=== PATIENT | male | born 1940 | race Caucasian/White ===

== ENCOUNTER 2017-12-23 14:02 | Inpatient (IN) ==
[2017-12-23] MEDS ORDERED: *HR* FentaNYL (PF) 100 MCG/2 ML VIAL IVP ONE ×3 (14:36→16:28)
--- NOTE | 2017-12-23 14:42 | Emergency Department Note ---
Disposition Clinical Impression: Pulmonary embolism and infarction Chest pain Qualifiers: Chest pain type: unspecified Qualified Code(s): R07.9 - Chest pain, unspecified Disposition: Admitted As Inpatient Condition: Good Time of Disposition: 16:39 General Adult HPI - General Chief complaint: ED Shortness of Breath/Dyspnea Stated complaint: Right Shoulder Pain / SOB Time Seen by Provider: 12/23/17 14:20 Source: patient Limitations: no limitations Nursing Notes Reviewed: Yes Vital Signs Reviewed: Yes - History of Present Illness HPI Narrative: Patient is a 77-year-old male that presents to the emergency department with right-sided chest pain. States that this woke him up from sleep around 2:30 this morning. States that he felt like he could not breathe. States that he has never had anything like this before. Patient denies any history of blood clots. Patient states that it is right-sided chest pain with no associated shortness of breath but has had some nausea. Patient denies any radiation of his pain. Patient states that he was seen at an outside facility and they felt that he should possibly come here for additional workup. Pain Scale: 9 - Related Data Home Medications Medication Instructions Recorded Confirmed No Known Home Drugs 12/23/17 12/23/17 Allergies Allergy/AdvReac Type Severity Reaction Status Date / Time formaldehyde Allergy Rash Verified 12/23/17 14:14 soybean Allergy Rash Verified 12/23/17 14:14 All systems ED: reviewed and negative except as stated. Cardiovascular: Reports: chest pain Gastrointestinal: Reports: nausea Past Medical History - Past Medical History Medical history: Reports: asthma, COPD, hypertension, other Psychiatric history: Reports: no psych history - Social History Smoking Status: Never smoker Smokeless Tobacco Status: No Alcohol use: Reports: none Drug use: Reports: none Physical Exam - General Limitations: no limitations General appearance: alert, in no apparent distress - Head Head exam: atraumatic, normocephalic - Eye Eye exam: Present: normal appearance, EOMI - Neck Neck exam: Present: normal inspection, full ROM, trachea midline - Respiratory Respiratory exam: Present: normal lung sounds bilaterally. Absent: respiratory distress, wheezes - Cardiovascular Cardiovascular exam: Present: normal rhythm, tachycardia, normal heart sounds, + S1, +S2 - Abdominal Exam Abdominal exam: Present: soft, Non-Tender, normal bowel sounds - Neurological Exam Neurological exam: Present: alert, oriented X3 - Psychiatric Psychiatric exam: Present: normal affect, normal mood - Skin Skin exam: Present: warm, dry, intact, other (Patient has a pimple-like rash on his right arm and into his left side and states that he has been dealing with this since April.) Course Vital Signs Temperature 98.1 F 12/23/17 14:14 Pulse Rate 103 12/23/17 14:14 Respiratory Rate 24 12/23/17 14:14 Blood Pressure 115/87 12/23/17 14:14 O2 Sat by Pulse Oximetry 91 12/23/17 14:14 Temperature 98.1 F 12/23/17 14:14 Pulse Rate 98 12/23/17 17:30 Respiratory Rate 22 12/23/17 18:35 Blood Pressure 142/104 12/23/17 18:35 O2 Sat by Pulse Oximetry 91 12/23/17 17:30 Oxygen Delivery Oxygen Delivery Nasal Cannula Medical Decision Making - MDM Narrative Medical decision making narrative: Due to patient presented with right-sided chest pain we will obtain a CBC, BMP and troponin chest x-ray and EKG and a CT of the chest to rule out possible pulmonary embolus. Patient elevated hemoglobin of 18.8. An elevated creatinine of 1.34. EKG showed a sinus rhythm. The CT of the chest showed a pulmonary embolus in the middle and lower lobe with a pulmonary infarct. The patient will have his coagulation studies obtained and then heparin will be started. The patient and family have been updated on the findings of the pulmonary embolus and the fact that he will need to be admitted to the hospital on a heparin drip. The patient is expressed understanding of this. The patient did seem to have a mild rash after receiving a dose of Percocet so we have given the patient a dose of Solu-Medrol due to the patient having an allergy or adverse reaction to Benadryl in the past. I called and spoke with the nurse practitioner this coming for the hospitalist Luis Armando Solano and he is except the patient to their service. The patient will be admitted to the hospital this time for further evaluation and management. - Medical Records Medical records reviewed: Yes I reviewed the patient's medical records. - Lab Data Lab results reviewed: Yes I reviewed the patient's lab results. Result diagrams: 12/23/17 14:31 12/23/17 14:31 Lab Results 12/23/17 12/23/1718 Range/Units 14:31 14:31 14:31 WBC 8.5 (4.3-11.1) K/mcL RBC 6.26 H (4.19-5.50) M/mcL Hgb 18.8 H (12.9-16.9) g/dL Hct 57.2 H (37.5-50.1) % MCV 91.4 (83.0-100.0) fL MCH 30.0 (28.0-33.3) pg MCHC 32.9 (31.6-35.5) g/dL RDW 13.8 (11.5-14.5) % Plt Count 105 L (140-400) K/mcL MPV 9.3 L (9.4-12.4) fL Immature Gran % 2.0 (0-4) % Seg Neutrophils % 65.4 % Lymphocytes % 19.3 % Monocytes % 12.0 % Eosinophils % 0.5 % Basophils % 0.8 % Neutrophils # 5.5 (1.6-8.9) K/mcL Lymphocytes # 1.6 (0.6-4.6) K/mcL Monocytes # 1.0 (0.0-1.3) K/mcL Eosinophils # 0.0 (0.0-0.6) K/mcL Basophils # 0.1 (0.0-0.2) K/mcL PT (9.4-12.1) Seconds INR APTT (26.0-36.0) Seconds Sodium 133 L (136-145) mEq/L Potassium 4.3 (3.5-5.1) mEq/L Chloride 98 (98-107) mEq/L Carbon Dioxide 28 (23-29) mEq/L BUN 18 (8-23) mg/dL Creatinine 1.34 H (0.70-1.30) mg/dL Est GFR ( Amer) > 60 (> 60) Est GFR (Non-Af Amer) 52 L (> 60) BUN/Creatinine Ratio 13 (6-26) Glucose 116 H (70-105) mg/dL Calculated Osmolality 279 L (280-300) Calcium 9.1 (8.6-10.3) mg/dL Troponin I < 0.03 (< 0.04) ng/mL 12/23/17 Range/Units 14:31 WBC (4.3-11.1) K/mcL RBC (4.19-5.50) M/mcL Hgb (12.9-16.9) g/dL Hct (37.5-50.1) % MCV (83.0-100.0) fL MCH (28.0-33.3) pg MCHC (31.6-35.5) g/dL RDW (11.5-14.5) % Plt Count (140-400) K/mcL MPV (9.4-12.4) fL Immature Gran % (0-4) % Seg Neutrophils % % Lymphocytes % % Monocytes % % Eosinophils % % Basophils % % Neutrophils # (1.6-8.9) K/mcL Lymphocytes # (0.6-4.6) K/mcL Monocytes # (0.0-1.3) K/mcL Eosinophils # (0.0-0.6) K/mcL Basophils # (0.0-0.2) K/mcL PT 12.3 H (9.4-12.1) Seconds INR 1.1 APTT 28.7 (26.0-36.0) Seconds Sodium (136-145) mEq/L Potassium (3.5-5.1) mEq/L Chloride (98-107) mEq/L Carbon Dioxide (23-29) mEq/L BUN (8-23) mg/dL Creatinine (0.70-1.30) mg/dL Est GFR ( Amer) (> 60) Est GFR (Non-Af Amer) (> 60) BUN/Creatinine Ratio (6-26) Glucose (70-105) mg/dL Calculated Osmolality (280-300) Calcium (8.6-10.3) mg/dL Troponin I (< 0.04) ng/mL - Radiology Data Radiology results reviewed: Yes I reviewed the patient's radiology results. Chest X-Ray 12/23/17 14:32 IMPRESSION: No acute process. D/ / Freddy Tesfaye MD / Freddy Tesfaye MD Interpreting Provider: Freddy Tesfaye MD Chest CTA 12/23/17 14:35 IMPRESSION: Right-sided pulmonary emboli, with peripheral ground-glass opacity in the lateral right lower lobe likely representing an area of pulmonary infarct D/ / Robert Avalos MD / Robert Avalos MD Interpreting Provider: Robert Avalos MD - EKG Data EKG #1 EKG attestation: Yes I reviewed and interpreted this EKG. EKG results narrative: EKG showed a normal sinus rhythm at a rate of 98 bpm, OR interval of 258, QRS duration is 77, QTC of 348. There is no STEMI noted on EKG. This is compared to previous EKG on 12/23/17 at 0 8:15 which showed a sinus rhythm with a prolonged OR interval and rate of 97 bpm, OR interval of 245. Critical Care Time Critical Care Time: Yes Total Critical Care Time: 45 Attestation: Critical care performed: Time is exclusive of separately billable procedures. Time includes: direct patient care, patient reassessment, coordination of patient care, interpretation of data (laboratory data, radiology data, and respiratory data), review of patient's medical records, medical consultation and documentation of patient care. Procedures included in critical care time: Procedures excluded from critical care time: Attestation Statement - Attestation Attestation: I, Lamine Zelaya DO, examined this patient [id number] and my medical decision-making was reviewed with Dr. Yordy Santos, Resident Physician. I agree with the documented findings, disposition and treatment plan as described except to the extent set forth below. Please see my progress notes for details. 77-year-old male presents to emergency room with right-sided chest wall pain and shortness of breath. He feels that he cannot take a deep breath in. He is tachycardic and hypoxic on arrival rotation. Patient seen an outside facility and they are concerned recommended further evaluation. Presents here today with concerns for possible pulmonary emboli versus pneumothorax. Chest x-ray is reviewed from outside facility as well as repeat chest x-ray today. No acute pneumothorax is noted the patient does have decreased aeration in the base of the right lung. EKG shows sinus tachycardia. Labs otherwise unremarkable signs were blood cell count infection or other etiology. Coagulation studies will be added on. CT angiography of the chest is ordered confirming what appears to be upper middle and lower lobe infarct possible pulmonary infarct in the right lower lung of the chest wall. Patient will be started on heparin secondary to the blood clots. He has no acute signs of right ventricular heart strain. Otherwise his workup and etiology are completely normal. Patient has no other acute pathology. Pain medication has been provided on breathing treatments as needed. Patient is otherwise resting comfortably in the bed. At 45 minutes of critical care by this patient's treatment course. See detailed documentation of the physical exam, medical intervention, medical decision making, disposition and the resident physician 1900 Patient has what appears to be a large pulmonary emboli with no acute signs of heart strain. Heparin drip was ordered. Patient denies any dark-colored stool or blood. Patient does not have any bleeding history issues. Patient's pain has been controlled overload secondary infarct in the right side of the chest wall. Hospitalist was contacted and admission process was completed. No acute concerns or issues. Family was informed that comfortable with the plan.
[2017-12-23 14:56] LABS: Basophils # 0.1 K/mcL (0.0-0.2); Basophils % 0.8 %; Eosinophils % 0.5 %; Hemoglobin 18.8 g/dL (12.9-16.9); Lymphocytes # 1.6 K/mcL (0.6-4.6); Lymphocytes % 19.3 %; Mean Corpuscular HGB Conc 32.9 g/dL (31.6-35.5); Mean Corpuscular Volume 91.4 fL (83.0-100.0); Mean Platelet Volume 9.3 fL (9.4-12.4); Neutrophils # 5.5 K/mcL (1.6-8.9); Platelet Count 105 K/mcL (140-400); Red Blood Count 6.26 M/mcL (4.19-5.50); Red Cell Distribution Width 13.8 % (11.5-14.5); Segmented Neutrophils % 65.4 %
[2017-12-23 14:57] LABS: Hematocrit 57.2 % (37.5-50.1)
[2017-12-23 15:06] LABS: BUN/Creatinine Ratio 13 (6-26); Blood Urea Nitrogen 18 mg/dL (8-23); Calcium 9.1 mg/dL (8.6-10.3); Carbon Dioxide 28 mEq/L (23-29); Chloride 98 mEq/L (98-107); Glucose 116 mg/dL (70-105); Osmolality,Calculated 279 (280-300); Potassium 4.3 mEq/L (3.5-5.1); Sodium 133 mEq/L (136-145); eGFR For African Americans > 60 (> 60); eGFR For Non-African Americans 52 (> 60)
[2017-12-23] MEDS ORDERED: *HR* FentaNYL (PF) 100 MCG/2 ML VIAL ONE (15:53)
[2017-12-23] MEDS ORDERED: *HR* Heparin 5,000 UNIT/ML VIAL IVP ONE (16:08)
[2017-12-23] MEDS ORDERED: *HR* Heparin 5,000 UNIT/ML VIAL IVP PRN ×2 (16:08)
[2017-12-23] MEDS ORDERED: *HR* OxyCODONE/APAP 5/325 TABLET PO ONE (16:27)
[2017-12-23 16:37] LABS: INR 1.1; Prothrombin Time 12.3 Seconds (9.4-12.1)
[2017-12-23 16:40] LABS: Activated Partial Thrombo Time 28.7 Seconds (26.0-36.0)
[2017-12-23] MEDS ORDERED: methylPREDNISolone 125 MG/2 ML VIAL IVP ONE (17:26)
[2017-12-23] MEDS: Heparin 25,000 UNIT/500 ML D5W 25,000 UNIT/500 ML BAG IVC SCH (17:35)
[2017-12-23] MEDS ORDERED: Naloxone 0.4 MG/ML INJ IVP PRN (20:26)
[2017-12-23] MEDS ORDERED: *HR* Dextrose 50 % in Water (Syg) 50 ML SYRINGE IVP PRN (20:26)
[2017-12-23] MEDS ORDERED: Dextrose Gel 15 GM/37.5 ML TUBE PO PRN ×2 (20:26)
[2017-12-23] MEDS ORDERED: D5% in Water 1,000 ML IVC PRN (20:26)
[2017-12-23] MEDS ORDERED: *HR* FentaNYL (PF) 100 MCG/2 ML VIAL IVP PRN ×2 (20:54→21:28)
[2017-12-23] MEDS ORDERED: Nitroglycerin 0.4 MG TAB.SUBL SL PRN (20:57)
--- NOTE | 2017-12-23 21:59 | Internal Med History&Physical ---
<Nuno Grissom - Last Filed: 12/23/17 22:51> Date of Encounter: 12/23/17 Time of Encounter: 20:30 Assessment and Plan (1) Pulmonary embolism and infarction Current visit: Yes Status: Acute - Cont heparin gtt; plan to transition to alternate anticoagulant in next few days - monitor PTT - CBC qAM for platelet count and H/H - place on telemetry and cont pulse ox - treat pain as needed - duonebs scheduled with PRN albuterol nebs for wheezing/SOA - ECHO in AM - will pursue diagnostic work up for underlying PE provocation including B/L-LE- VD-U/S, protein C & S, antithrombin-III, antiphospholipid ab, and F-V-Leiden (2) Thrombocytopenia Current visit: No Status: Acute monitor CBC qAM (3) Acute kidney injury Current visit: Yes Status: Acute Mild Creatinine elevation -- decreased PO fluid intake over past several days, likely volume-depletion - gentle IVF - monitor renal fx in AM (4) Diabetes mellitus Current visit: Yes Status: Chronic Not currently on any medications - diabetic diet - Low-scale SSI with FSBG TID-AC-HS Qualifiers: Diabetes mellitus type: type 2 Diabetes mellitus complication status: with unspecified complications Diabetes mellitus exterminator insulin use: without exterminator use Qualified Code(s): E11.8 - Type 2 diabetes mellitus with unspecified complications (5) HTN (hypertension) Current visit: Yes Status: Chronic Borderline, chronic, stable Monitor qShift May add antihypertensives per need Qualifiers: Hypertension type: unspecified Qualified Code(s): I10 - Essential (primary ) hypertension Internal Medicine - H&P: HPI Chief complaint: Chest pain Admitted From: Emergency Dept Plans for Post Hospital Care: Home History of present illness: Mr. Khalil is a 77 year old male admitted for Rt lung pulmonary emboli with CT evidence of infarct. History of HTN, DM-II on no Rx, and unspecified chronic skin condition. Patient states woke up at 0230 this AM with severe right lateral chest wall pain that is worse with deep inspiration. No history of similar pain. Pain is sharp in quality, radiates into right shoulder, and is associated with shortness of breath and nausea. Denies fevers, syncope/lightheadedness, visual disturbances, retrosternal chest pain, vomiting, or pedal edema. He also describes poor food and fluid intake due to nausea over the past 3 days with some gas and "diarrhea". Again, denies fevers or chills. No known history of gallbladder pathology. No known active malignancy, no history of blood clots (DVT/PE), no hemoptysis; states has been somewhat more sedentary over last few days. Not on any anticoagulant/antiplatelet rx. No known history of hypercoagulability. Initially seen at [facility], but later signed out AMA and spouse drove pt to [facility] ED. [facility] ED admitted with consideration of RUQ ultrasound prior to sign out. Collective ED work up significant for CTA demonstrating above findings; troponin , CMP, lipase, WBC, CXR, and PT/PTT unremarkable. Past Med Surg Social Fam HX - Past Medical History Attestation: Yes The following information was validated with the patient. Source: patient, obtained from family, other Medical history: asthma, COPD, hypertension, other Psychiatric history: no psych history - Social History Smoking Status: Never smoker Smokeless Tobacco Status: No Alcohol use: none Drug use: none - Family History Father Hx Family Cancer: Yes ( of prostate cancer) Internal Medicine - H&P: Meds No Known Home Drugs 12/23/17 [History] 3 Allergy/AdvReac Type Severity Reaction Status Date / Time formaldehyde Allergy Rash Verified 12/23/17 14:14 soybean Allergy Rash Verified 12/23/17 14:14 All Systems PM: A 10-system review of systems was performed and is negative for pertinent findings except as documented above in the HPI. - Constitutional Vitals: Temp Pulse Resp BP Pulse Ox 97.7 F 80 20 142/103 93 12/23/17 19:07 12/23/17 20:25 12/23/17 20:25 12/23/17 20:25 12/23/17 20:38 Exam: CONSTITUTIONAL: Alert and oriented X3, well-nourished, well appearing, in no apparent distress HEAD: Normocephalic; atraumatic. EYES: PERRL, no scleral icterus, no drainage, no conjunctival injection NOSE: The nose is normal in appearance without rhinorrhea Oropharynx: pink/moist, no tonsillar edema/erythema/exudates RESP: NRD without use of accessory musculature, CTA b/l with no wheezes/rales/ rhonchi; does exhibit pain with deep inspiration CARD: Regular rhythm, without murmurs, rubs, or gallop ABD: grossly normal, soft, non-tender, no guarding/distention/rigidity SKIN: does have lesions to bilateral anterior leg 2/2 history of severe peralta; otherwise normal appearance, no pallor/diaphoresis,mottling,jaundice,cyanosis EXT: DP/Rad pulses 2+ and symmetrical; no lateralizing edema; no other lesions seen PSYCH: appropriate mood/affect Internal Med - H&P Results - Labs CBC & Chem 7: 12/23/17 14:31 12/23/17 14:31 <Sumit Dunaway - Last Filed: 12/23/17 23:35> Date of Encounter: 12/23/17 Internal Medicine - H&P: HPI History of present illness: Mr. Khalil is a 77 year old male All Systems PM: A 10-system review of systems was performed and is negative for pertinent findings except as documented above in the HPI. - Constitutional Vitals: Temp Pulse Resp BP Pulse Ox 97.7 F 80 20 142/103 93 12/23/17 19:07 12/23/17 20:25 12/23/17 20:25 12/23/17 20:25 12/23/17 20:38 Internal Med - H&P Results - Labs CBC & Chem 7: 12/23/17 14:31 12/23/17 14:31 Labs: Cardiac Enzymes 12/23/17 Range/Units 21:11 Troponin I < 0.03 (< 0.04) ng/mL - Attending Attestation I examined this patient and my medical decision-making was reviewed with the Resident Physician Dr. Grissom. I agree with the documented findings, disposition and treatment plan as described except to the extent set forth below. Mr. 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 His CTA of chest showed Rt side PE and pulmonary infract.Pt was started on Heparin gtt. His pain is lot better now. Gen: Mild distress with pain Chest: Diminished BS b/l, no crackles Heart; S1S2+ RRR No murmurs Skin: diffuse dermatitis rash a/p 1. Acute Rt PE , with mild infraction He did develop unprovocative PE need further work up will check Venous doppler of legs , Hyper coag panel Also obtain records from [facility] office to see if he has any auto immune disease vs small vasculities cont heparin gtt for 24-48hrs Rd [facility] 2D Echo in AM Talked to pt's family at bed side and explained to them about current care.
[2017-12-23] MEDS ORDERED: Albuterol 2.5 MG/3 ML NEBULIZER IH PRN (22:50)
[2017-12-23] MEDS ORDERED: 0.9 % Sodium Chloride 1,000 ML IVC SCH (23:00)
[2017-12-23] MEDS: Ipratropium/Albuterol Neb 3 ML IH SCH (23:50)
[2017-12-24 00:38] LABS: Basophils % 0.4 %; Hematocrit 52.2 % (37.5-50.1); Hemoglobin 17.9 g/dL (12.9-16.9); Immature Granulocytes % 1.6 % (0-4); Immature Platelets 2.8 % (1.1-6.1); Mean Corpuscular HGB Conc 34.3 g/dL (31.6-35.5); Mean Corpuscular Volume 87.4 fL (83.0-100.0); Monocytes # 0.2 K/mcL (0.0-1.3); Monocytes % 2.9 %; Neutrophils # 6.1 K/mcL (1.6-8.9); Platelet Count 104 K/mcL (140-400); Red Blood Count 5.97 M/mcL (4.19-5.50); Red Cell Distribution Width 13.2 % (11.5-14.5); Segmented Neutrophils % 82.1 %
[2017-12-24] MEDS: Insulin LISPRO 300 UNITS/3 ML VIAL SQ SCH ×5 (00:40→21:29)
[2017-12-24] MEDS: Acetaminophen 325 MG TABLET PO PRN (00:48)
[2017-12-24 01:10] LABS: Alanine Aminotransferase 22 Units/L (7-52); Albumin 3.4 g/dL (3.5-5.7); Albumin/Globulin Ratio 1.1 (1.1-2.2); Alkaline Phosphatase 71 Units/L (34-104); Aspartate Amino Transferase 10 Units/L (13-39); BUN/Creatinine Ratio 19 (6-26); Bilirubin,Total 0.7 mg/dL (0.3-1.0); Blood Urea Nitrogen 23 mg/dL (8-23); Calcium 8.9 mg/dL (8.6-10.3); Carbon Dioxide 24 mEq/L (23-29); Chloride 101 mEq/L (98-107); Globulin 3.1 g/dL (2.4-3.5); Glucose 276 mg/dL (70-105); Magnesium 2.4 mg/dL (1.6-2.6); Osmolality,Calculated 286 (280-300); Potassium 4.5 mEq/L (3.5-5.1); Sodium 131 mEq/L (136-145); Total Protein 6.5 g/dL (6.4-8.9); eGFR For African Americans > 60 (> 60); eGFR For Non-African Americans 57 (> 60)
[2017-12-24] MEDS ORDERED: 0.9 % Sodium Chloride 1,000 ML IVC SCH (01:15)
[2017-12-24 01:25] LABS: Activated Partial Thrombo Time 182.1 Seconds (26.0-36.0)
[2017-12-24 01:33] LABS: Heparin anti-factor XA UFH 0.95 IU/mL (0.30-0.70)
[2017-12-24 01:34] LABS: INR 1.2; Prothrombin Time 13.5 Seconds (9.4-12.1)
[2017-12-24] MEDS: Ipratropium/Albuterol Neb 3 ML IH SCH ×6 (03:54→23:59)
--- NOTE | 2017-12-24 05:06 | Electrocardiograph Report ---
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
--- NOTE | 2017-12-24 10:35 | Internal Med Progress Note ---
Date of Encounter: 12/24/17 Time of Encounter: 10:30 - Assessment and plan (1) Polycythemia Current Visit: No Status: Acute (2) Thrombocytopenia Current Visit: No Status: Acute (3) Pulmonary embolism and infarction Current Visit: Yes Status: Acute (4) Acute kidney injury Current Visit: Yes Status: Acute (5) Diabetes mellitus Current Visit: Yes Status: Chronic Qualifiers: Diabetes mellitus type: type 2 Diabetes mellitus complication status: with unspecified complications Diabetes mellitus bed bug exterminator insulin use: without fci use Qualified Code(s): E11.8 - Type 2 diabetes mellitus with unspecified complications (6) HTN (hypertension) Current Visit: Yes Status: Chronic Qualifiers: Hypertension type: unspecified Qualified Code(s): I10 - Essential (primary ) hypertension - Constitutional Vitals: Temp Pulse Resp BP Pulse Ox 96.1 F L 80 18 136/99 95 12/24/17 04:17 12/24/17 07:55 12/24/17 07:57 12/24/17 07:55 12/24/17 07:57 Internal Medicine: Result - Labs CBC & Chem 7: 12/24/17 00:24 12/24/17 00:24 Labs: Short CBC 12/24/17 Range/Units 00:24 WBC 7.5 (4.3-11.1) K/mcL Hgb 17.9 H (12.9-16.9) g/dL Hct 52.2 H (37.5-50.1) % Plt Count 104 L (140-400) K/mcL Neutrophils # 6.1 (1.6-8.9) K/mcL BMP 12/24/17 00:24 Sodium 131 L Potassium 4.5 Chloride 101 Carbon Dioxide 24 BUN 23 Creatinine 1.23 Glucose 276 H Calcium 8.9 Cardiac Enzymes 12/23/17 12/24/17 12/24/17 Range/Units 21:11 03:46 08:48 Troponin I < 0.03 < 0.03 < 0.03 (< 0.04) ng/mL Liver Function 12/24/17 Range/Units 00:24 Total Bilirubin 0.7 (0.3-1.0) mg/dL AST 10 L (13-39) Units/L ALT 22 (7-52) Units/L Alkaline Phosphatase 71 (34-104) Units/L Albumin 3.4 L (3.5-5.7) g/dL - ABG Interpretation ABG results: PT/INR, D-dimer PT 13.5 Seconds (9.4-12.1) H 12/24/17 00:24 Consult Discharge Plan - Plan Referrals: Génesis Valladares DO [Primary Care Provider] -
[2017-12-24 12:08] LABS: % Iron Saturation 10 % (20-55); Iron 27 mcg/dL (65-175); Transferrin 190 mg/dL (203-362)
[2017-12-24] MEDS ORDERED: *HR* OxyCODONE Oral Soln 5 MG/5 ML UD.LIQ PO PRN (15:25)
[2017-12-24 16:39] LABS: Hemoglobin A1C 7.1 %
--- NOTE | 2017-12-24 17:32 | Internal Med Progress Note ---
<Ritesh Lancaster - Last Filed: 12/24/17 17:29> Date of Encounter: 12/24/17 Time of Encounter: 10:45 - Assessment and plan (1) Pulmonary embolism and infarction Current Visit: Yes Status: Acute Assessment and plan: - Pulmonary embolism as demonstrated on CTA of March Department -Demonstrated right-sided PE with lateral right lower lobe infarction - Patient started on heparin drip in emergency department - We did discuss transition to long-term anticoagulation, we will decide on agent tomorrow - Echocardiogram showing ejection fraction of 65% with mild diastolic dysfunction. Grossly normal function of right ventricle - Venous Doppler shows positive DVT in right lower extremity and popliteal and posterior tibial vein - Etiology unclear at this time, however suspect inactivity as most likely cause Plan - Continue heparin drip and plan to bridge to long-term coagulation - We will pressure check tomorrow and discuss with patient - He does have an ARLET at the moment however it is improving with fluid hydration - Continue supplemental oxygen as needed, currently tolerating 5 L via nasal cannula 95% (2) Chest pain Current Visit: Yes Status: Resolved Assessment and plan: - Likely secondary to known PE as demonstrated on CTA. - No complaints of chest pain today. - Resolved. 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 - Pt is noticeably red covering a large portion of his body. No complaints of itching, skin sloughing, pain Plan - Continue home meds. Follow up as outpatient - Avoid allergies. (4) Polycythemia Current Visit: Yes Status: Acute Assessment and plan: - H/H mildly elevated at 17.9/52.2 - Platelets low at 104 and WBC of 7.5 - Possibly reactive secondary to PE vs Asthma. - Iron studies, coag studies pending. Plan - Continue to monitor and treat underlying issues as they are discovered. - Will likely need to follow up as outpatient with PCP and possibly pulmonology (5) Thrombocytopenia Current Visit: Yes Status: Acute Assessment and plan: - As above. - possibly reactive. - Platelets of 104 - No signs of bleed. Will monitor with anticoagulation (6) Acute kidney injury Current Visit: Yes Status: Acute Assessment and plan: - BUNs/creatinine of 23/1.23, improved from admission of 1.45 - Likely secondary to dehydration. Has improved with gentle IV hydration - We will continue to monitor and avoid nephrotoxic agents (7) Diabetes mellitus Current Visit: Yes Status: Chronic Assessment and plan: - Type 2 diabetes mellitus - Patient has been poorly compliant with medications due to fear of allergy - Blood sugar this morning of 276, hemoglobin A1c of 7.1% - Patient is currently on low-dose sliding scale insulin - We will continue monitoring and increase insulin as necessary Qualifiers: Diabetes mellitus type: type 2 Diabetes mellitus complication status: with unspecified complications Diabetes mellitus termite exterminator helper insulin use: without usp use Qualified Code(s): E11.8 - Type 2 diabetes mellitus with unspecified complications (8) HTN (hypertension) Current Visit: Yes Status: Chronic Assessment and plan: BP of 136/99 - Continue Home medications Qualifiers: Hypertension type: unspecified Qualified Code(s): I10 - Essential (primary ) hypertension (9) DVT prophylaxis Current Visit: Yes Status: Acute Assessment and plan: - Patient presents with DVT, PE - Currently receiving heparin drip - Time Spent With Patient 25 - 35 minutes - Subjective Interval history: Patient seen and examined at bedside this morning. He states that his presenting symptoms of right-sided chest wall pain, shortness of breath have resolved and is back to baseline. He states that he has never had a history of clotting in the past, no family members with clotting, he is up-to-date with cancer screening. - Constitutional Vitals: Temp Pulse Resp BP Pulse Ox 97.3 F L 96 18 120/78 92 12/24/17 16:44 12/24/17 16:44 12/24/17 16:13 12/24/17 16:44 12/24/17 16:44 Exam: Gen.: Vitals noted. No acute distress. AAOx3. Patient noticeably is erythematous throughout most of his body. No skin sloughing appreciated. Patient states that he has had a chronic problem with what he describes as medication allergies for which she follows with [facility] drop clipper. HEENT: PERRL/EOMI, oropharynx clear, Normocephalic, atraumatic. Cardiac: RRR, no murmur, +S1/S2 Pulmonary: CTA bilaterally, no wheezes, rales or rhonchi, equal chest expansion Abdomen: soft, nontender, BS noted, no guarding Neuro: A&Ox3, moves all extremities, no focal deficits Psych: Appropriate mood and behavior Internal Medicine: Result - Labs CBC & Chem 7: 12/24/17 00:24 12/24/17 00:24 Labs: Short CBC 12/24/17 Range/Units 00:24 WBC 7.5 (4.3-11.1) K/mcL Hgb 17.9 H (12.9-16.9) g/dL Hct 52.2 H (37.5-50.1) % Plt Count 104 L (140-400) K/mcL Neutrophils # 6.1 (1.6-8.9) K/mcL BMP 12/24/17 00:24 Sodium 131 L Potassium 4.5 Chloride 101 Carbon Dioxide 24 BUN 23 Creatinine 1.23 Glucose 276 H Calcium 8.9 Cardiac Enzymes 12/23/17 12/24/17 12/24/17 Range/Units 21:11 03:46 08:48 Troponin I < 0.03 < 0.03 < 0.03 (< 0.04) ng/mL Liver Function 12/24/17 Range/Units 00:24 Total Bilirubin 0.7 (0.3-1.0) mg/dL AST 10 L (13-39) Units/L ALT 22 (7-52) Units/L Alkaline Phosphatase 71 (34-104) Units/L Albumin 3.4 L (3.5-5.7) g/dL - ABG Interpretation ABG results: PT/INR, D-dimer PT 13.5 Seconds (9.4-12.1) H 12/24/17 00:24 - Impressions Impressions Echocardiogram 12/23/17 20:26 Impressions: Technically sub-optimal due to poor echocardiographic windows. LVEF 65%. Normal LV chamber size and function. Mild asymmetric hypertrophy of the basal septum. No LVOT obstruction. Mild left ventricular diastolic dysfunction. Right ventricle was not well visualized. Grossly, function appears normal. Unable to estimate RVSP due to lack of TR jet. No obvious significant valvular dysfunction. Left Ventricular Wall Motion: Rest Echo Findings All wall segments showed normal motion. Findings: Study Quality * Technically sub-optimal due to poor echocardiographic windows. ECG Findings * Normal sinus rhythm. Left Ventricle * LVEF 65%. * Normal LV chamber size and function. * Mild asymmetric hypertrophy of the basal septum. No LVOT obstruction. * Mild left ventricular diastolic dysfunction. Right Ventricle * Right ventricle was not well visualized. Grossly, function appears normal. Left Atrium * Mildly dilated left atrium. Right Atrium * Right atrium is not well visualized. Interatrial Septum * Interatrial septum not well evaluated. Aortic Valve * Trileaflet aortic valve. * Mildly sclerotic aortic valve leaflets. * No aortic regurgitation. * No aortic stenosis. Mitral Valve * Normal mitral valve structure and function. * No mitral regurgitation. * No mitral stenosis. Tricuspid Valve * Normal tricuspid valve structure and function. * No tricuspid regurgitation. * Unable to estimate RVSP due to lack of TR jet. Pulmonic Valve * Pulmonic valve not well visualized. * No pulmonic regurgitation. Aorta * Normally sized aortic root. Pericardium * The pericardium appears normal. IVC * The IVC is not well evaluated. Pulmonary Artery * Pulmonary artery not well visualized. Consult Discharge Plan - Plan Referrals: Génesis Valladares DO [Primary Care Provider] - <Eric Nunez - Last Filed: 12/24/17 18:49> Date of Encounter: 12/24/17 - Assessment and plan (1) Pulmonary embolism and infarction Current Visit: Yes Status: Acute (2) DVT (deep venous thrombosis) Current Visit: Yes Status: Acute Qualifiers: DVT location: lower extremity Affected thrombotic vein of extremity: popliteal Chronicity: acute Laterality: right Qualified Code(s): I82.431 - Acute embolism and thrombosis of right popliteal vein (3) DVT (deep venous thrombosis) Current Visit: Yes Status: Acute Qualifiers: DVT location: lower extremity Affected thrombotic vein of extremity: tibial Chronicity: acute Laterality: right Qualified Code(s): I82.441 - Acute embolism and thrombosis of right tibial vein (4) Polycythemia Current Visit: Yes Status: Acute (5) Thrombocytopenia Current Visit: Yes Status: Acute (6) Diabetes mellitus Current Visit: Yes Status: Chronic Qualifiers: Diabetes mellitus type: type 2 Diabetes mellitus complication status: with hyperglycemia Diabetes mellitus termite exterminator helper insulin use: without termite exterminator helper use Qualified Code(s): E11.65 - Type 2 diabetes mellitus with hyperglycemia (7) HTN (hypertension) Current Visit: Yes Status: Chronic Qualifiers: Hypertension type: essential hypertension Qualified Code(s): I10 - Essential (primary) hypertension - Constitutional Vitals: Temp Pulse Resp BP Pulse Ox 97.3 F L 96 18 120/78 92 12/24/17 16:44 12/24/17 16:44 12/24/17 16:13 12/24/17 16:44 12/24/17 16:44 Internal Medicine: Result - Labs CBC & Chem 7: 12/24/17 00:24 12/24/17 00:24 Labs: Short CBC 12/24/17 Range/Units 00:24 WBC 7.5 (4.3-11.1) K/mcL Hgb 17.9 H (12.9-16.9) g/dL Hct 52.2 H (37.5-50.1) % Plt Count 104 L (140-400) K/mcL Neutrophils # 6.1 (1.6-8.9) K/mcL BMP 12/24/17 00:24 Sodium 131 L Potassium 4.5 Chloride 101 Carbon Dioxide 24 BUN 23 Creatinine 1.23 Glucose 276 H Calcium 8.9 Cardiac Enzymes 12/23/17 12/24/17 12/24/17 Range/Units 21:11 03:46 08:48 Troponin I < 0.03 < 0.03 < 0.03 (< 0.04) ng/mL Liver Function 12/24/17 Range/Units 00:24 Total Bilirubin 0.7 (0.3-1.0) mg/dL AST 10 L (13-39) Units/L ALT 22 (7-52) Units/L Alkaline Phosphatase 71 (34-104) Units/L Albumin 3.4 L (3.5-5.7) g/dL - ABG Interpretation ABG results: PT/INR, D-dimer PT 13.5 Seconds (9.4-12.1) H 12/24/17 00:24 - Impressions Impressions Echocardiogram 12/23/17 20:26 Impressions: Technically sub-optimal due to poor echocardiographic windows. LVEF 65%. Normal LV chamber size and function. Mild asymmetric hypertrophy of the basal septum. No LVOT obstruction. Mild left ventricular diastolic dysfunction. Right ventricle was not well visualized. Grossly, function appears normal. Unable to estimate RVSP due to lack of TR jet. No obvious significant valvular dysfunction. Left Ventricular Wall Motion: Rest Echo Findings All wall segments showed normal motion. Findings: Study Quality * Technically sub-optimal due to poor echocardiographic windows. ECG Findings * Normal sinus rhythm. Left Ventricle * LVEF 65%. * Normal LV chamber size and function. * Mild asymmetric hypertrophy of the basal septum. No LVOT obstruction. * Mild left ventricular diastolic dysfunction. Right Ventricle * Right ventricle was not well visualized. Grossly, function appears normal. Left Atrium * Mildly dilated left atrium. Right Atrium * Right atrium is not well visualized. Interatrial Septum * Interatrial septum not well evaluated. Aortic Valve * Trileaflet aortic valve. * Mildly sclerotic aortic valve leaflets. * No aortic regurgitation. * No aortic stenosis. Mitral Valve * Normal mitral valve structure and function. * No mitral regurgitation. * No mitral stenosis. Tricuspid Valve * Normal tricuspid valve structure and function. * No tricuspid regurgitation. * Unable to estimate RVSP due to lack of TR jet. Pulmonic Valve * Pulmonic valve not well visualized. * No pulmonic regurgitation. Aorta * Normally sized aortic root. Pericardium * The pericardium appears normal. IVC * The IVC is not well evaluated. Pulmonary Artery * Pulmonary artery not well visualized. - Attending Attestation I examined this patient and my medical decision-making was reviewed with the Resident Physician on 12/24/17. I agree with the documented findings, disposition and treatment plan as described except to the extent set forth below. Mr Khalil is currently admitted due to acute PE. He has been found to have DVTs R leg. He remains moderate to high risk due to potential for worsening clinical status. Mr Khalil feels his chest pain has improved some. He has some pain in his lower R leg. No fever. No cough. Exam alert. Comfortable Mucus membranes dry Heart reg Lungs diminished No edema I/P 1 PE 2. RLE DVT Further diagnoses and plan as above.
[2017-12-25 00:54] LABS: Basophils % 0.3 %; Eosinophils % 0.3 %; Hematocrit 49.3 % (37.5-50.1); Lymphocytes # 1.2 K/mcL (0.6-4.6); Lymphocytes % 12.1 %; Mean Corpuscular HGB Conc 33.9 g/dL (31.6-35.5); Mean Corpuscular Hemoglobin 29.9 pg (28.0-33.3); Mean Corpuscular Volume 88.2 fL (83.0-100.0); Mean Platelet Volume 9.3 fL (9.4-12.4); Monocytes # 0.9 K/mcL (0.0-1.3); Monocytes % 9.1 %; Neutrophils # 7.9 K/mcL (1.6-8.9); Platelet Count 108 K/mcL (140-400); Red Blood Count 5.59 M/mcL (4.19-5.50); Red Cell Distribution Width 12.9 % (11.5-14.5); Segmented Neutrophils % 77.2 %
[2017-12-25 00:57] LABS: Hemoglobin 16.7 g/dL (12.9-16.9)
[2017-12-25 01:16] LABS: BUN/Creatinine Ratio 17 (6-26); Blood Urea Nitrogen 22 mg/dL (8-23); Calcium 8.6 mg/dL (8.6-10.3); Carbon Dioxide 26 mEq/L (23-29); Chloride 101 mEq/L (98-107); Glucose 138 mg/dL (70-105); Osmolality,Calculated 286 (280-300); Potassium 3.5 mEq/L (3.5-5.1); Sodium 135 mEq/L (136-145); eGFR For African Americans > 60 (> 60); eGFR For Non-African Americans 55 (> 60)
[2017-12-25] MEDS: Ipratropium/Albuterol Neb 3 ML IH SCH ×5 (03:16→19:56)
[2017-12-25] MEDS: Acetaminophen 325 MG TABLET PO PRN (05:34)
--- NOTE | 2017-12-25 08:24 | Internal Med Progress Note ---
<Ritesh Lancaster - Last Filed: 12/25/17 15:01> Date of Encounter: 12/25/17 Time of Encounter: 08:21 - Assessment and plan (1) Pulmonary embolism and infarction Current Visit: Yes Status: Acute Assessment and plan: - Pulmonary embolism as demonstrated on CTA in emergency Department -Demonstrated right-sided PE with lateral right lower lobe infarction. Repeat CTA performed this morning due to concern of increased clot burden showing stable pulmonary embolism with no new infarction. No new emboli - Echocardiogram showing ejection fraction of 65% with mild diastolic dysfunction. Grossly normal function of right ventricle - Venous Doppler shows positive DVT in right lower extremity and popliteal and posterior tibial vein - Etiology unclear at this time, however suspect inactivity as most likely cause Plan - Continue heparin drip and plan to bridge to long-term coagulation - Patient expresses interest in NOAC, barillas checking today. Patient has been on Xarelto previously. - He does have an ARLET at the moment however it is improving with fluid hydration - Continue supplemental oxygen as needed, currently tolerating 4 L via nasal cannula 95%, will likely improved with decreased clot burden (2) Atrial flutter Current Visit: Yes Status: Acute Assessment and plan: - Patient's complaint of chest pain during evening - EKG at that time revealed atrial flutter with a rate of 111. No evidence of ischemia - Likely secondary to increased demand and myocardial stress in the setting of pulmonary embolism - Repeat CTA as above. Plan -Patient is already being anticoagulated with heparin drip for pulmonary embolism - We will rate control with Cardizem drip starting today - We will transition to oral AV donavan blockers as able and as clot burden decreases Qualifiers: Atrial flutter type: unspecified Qualified Code(s): I48.92 - Unspecified atrial flutter (3) Chest pain Current Visit: Yes Status: Resolved Assessment and plan: - Likely secondary to known PE as demonstrated on CTA. - Mild complaints of chest pain this morning similar to presentation. Pain is resolved with oxycodone - Resolved. 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 - Pt is noticeably red covering a large portion of his body. No complaints of itching, skin sloughing, pain Plan - Continue home meds. Follow up as outpatient - Avoid allergies. (5) Polycythemia Current Visit: Yes Status: Acute Assessment and plan: - H/H return to normal limits with H&H most recently of 16.7/49.3 - Platelets low at 108 and WBC of 10.2 - Possibly reactive secondary to PE vs Asthma. -Iron studies demonstrating mild iron deficiency anemia. Plan - Continue to monitor and treat underlying issues as they are discovered. - Will likely need to follow up as outpatient with PCP and possibly hematology (6) Thrombocytopenia Current Visit: Yes Status: Acute Assessment and plan: - As above. - possibly reactive. - Platelets of 108 - No signs of bleed. Will monitor with anticoagulation (7) Acute kidney injury Current Visit: Yes Status: Acute Assessment and plan: - BUNs/creatinine of 22/1.27, stable from previous - Likely secondary to dehydration. Has improved with gentle IV hydration - We will continue to monitor and avoid nephrotoxic agents (8) Diabetes mellitus Current Visit: Yes Status: Chronic Assessment and plan: - Type 2 diabetes mellitus - Patient has been poorly compliant with medications due to fear of allergy - Blood sugar this morning of 142, hemoglobin A1c of 7.1% - Patient is currently on low-dose sliding scale insulin Qualifiers: Diabetes mellitus type: type 2 Diabetes mellitus complication status: with hyperglycemia Diabetes mellitus correction insulin use: without correction use Qualified Code(s): E11.65 - Type 2 diabetes mellitus with hyperglycemia (9) HTN (hypertension) Current Visit: Yes Status: Chronic Assessment and plan: BP of 107/77 - Carefully monitor for increased clot burden and transition to massive pulmonary embolism. Currently hemodynamically stable - Continue Home medications Qualifiers: Hypertension type: essential hypertension Qualified Code(s): I10 - Essential (primary) hypertension (10) DVT prophylaxis Current Visit: Yes Status: Acute Assessment and plan: - Patient presents with DVT, PE - Currently receiving heparin drip - Time Spent With Patient 25 - 35 minutes - Subjective Interval history: Patient seen and examined at bedside this morning. Per night team report, patient went into new onset Aflutter last evening and was complaining of the same right sided pleuritic chest pain that he presented with. Currently during time of exam, patient is not complaining of any pain, shortness of breath. He does state that he feels a sharp pain with deep inspiration. Also complains of gas pain in his abdomen and has not had a bowel movement. - Constitutional Vitals: Temp Pulse Resp BP Pulse Ox 97.8 F 119 17 107/77 91 12/25/17 04:05 12/25/17 07:00 12/25/17 07:00 12/25/17 07:00 12/25/17 07:00 Exam: Gen.: Vitals noted. No acute distress. AAOx3 HEENT: PERRL/EOMI, oropharynx clear, Normocephalic, atraumatic, MMM Cardiac: Tachycardic, irregular, no murmur, +S1/S2 Pulmonary: CTA bilaterally, no wheezes, rales or rhonchi, equal chest expansion Abdomen: soft, nontender, BS noted, no guarding MSK: ROM intact, no joint swelling noted Extremities: no BLE edema, nontender calf, no cyanosis or clubbing Neuro: A&Ox3, moves all extremities, no focal deficits Psych: Appropriate mood and behavior Internal Medicine: Result - Labs CBC & Chem 7: 12/25/17 00:39 12/25/17 00:39 Labs: Short CBC 12/25/17 Range/Units 00:39 WBC 10.2 (4.3-11.1) K/mcL Hgb 16.7 (12.9-16.9) g/dL Hct 49.3 (37.5-50.1) % Plt Count 108 L (140-400) K/mcL Neutrophils # 7.9 (1.6-8.9) K/mcL BMP 12/25/17 00:39 Sodium 135 L Potassium 3.5 Chloride 101 Carbon Dioxide 26 BUN 22 Creatinine 1.27 Glucose 138 H Calcium 8.6 Cardiac Enzymes 12/24/17 Range/Units 08:48 Troponin I < 0.03 (< 0.04) ng/mL - ABG Interpretation ABG results: PT/INR, D-dimer PT 13.5 Seconds (9.4-12.1) H 12/24/17 00:24 - Impressions Impressions Echocardiogram 12/23/17 20:26 Impressions: Technically sub-optimal due to poor echocardiographic windows. LVEF 65%. Normal LV chamber size and function. Mild asymmetric hypertrophy of the basal septum. No LVOT obstruction. Mild left ventricular diastolic dysfunction. Right ventricle was not well visualized. Grossly, function appears normal. Unable to estimate RVSP due to lack of TR jet. No obvious significant valvular dysfunction. Left Ventricular Wall Motion: Rest Echo Findings All wall segments showed normal motion. Findings: Study Quality * Technically sub-optimal due to poor echocardiographic windows. ECG Findings * Normal sinus rhythm. Left Ventricle * LVEF 65%. * Normal LV chamber size and function. * Mild asymmetric hypertrophy of the basal septum. No LVOT obstruction. * Mild left ventricular diastolic dysfunction. Right Ventricle * Right ventricle was not well visualized. Grossly, function appears normal. Left Atrium * Mildly dilated left atrium. Right Atrium * Right atrium is not well visualized. Interatrial Septum * Interatrial septum not well evaluated. Aortic Valve * Trileaflet aortic valve. * Mildly sclerotic aortic valve leaflets. * No aortic regurgitation. * No aortic stenosis. Mitral Valve * Normal mitral valve structure and function. * No mitral regurgitation. * No mitral stenosis. Tricuspid Valve * Normal tricuspid valve structure and function. * No tricuspid regurgitation. * Unable to estimate RVSP due to lack of TR jet. Pulmonic Valve * Pulmonic valve not well visualized. * No pulmonic regurgitation. Aorta * Normally sized aortic root. Pericardium * The pericardium appears normal. IVC * The IVC is not well evaluated. Pulmonary Artery * Pulmonary artery not well visualized. Consult Discharge Plan - Plan Referrals: Génesis Valladares DO [Primary Care Provider] - Prescriptions: Rivaroxaban [Xarelto] 1 dose PO AD 30 Days #1 pack <Eric Nunez - Last Filed: 12/25/17 18:14> Date of Encounter: 12/25/17 - Assessment and plan (1) Pulmonary embolism and infarction Current Visit: Yes Status: Acute (2) Atrial flutter Current Visit: Yes Status: Acute Qualifiers: Atrial flutter type: typical Qualified Code(s): I48.3 - Typical atrial flutter (3) DVT (deep venous thrombosis) Current Visit: Yes Status: Acute Qualifiers: DVT location: lower extremity Affected thrombotic vein of extremity: popliteal Chronicity: acute Laterality: right Qualified Code(s): I82.431 - Acute embolism and thrombosis of right popliteal vein (4) DVT (deep venous thrombosis) Current Visit: Yes Status: Acute Qualifiers: DVT location: lower extremity Affected thrombotic vein of extremity: tibial Chronicity: acute Laterality: right Qualified Code(s): I82.441 - Acute embolism and thrombosis of right tibial vein (5) Constipation Current Visit: Yes Status: Acute Qualifiers: Constipation type: slow transit constipation Qualified Code(s): K59.01 - Slow transit constipation (6) Polycythemia Current Visit: Yes Status: Acute (7) Thrombocytopenia Current Visit: Yes Status: Acute (8) Diabetes mellitus Current Visit: Yes Status: Chronic Qualifiers: Diabetes mellitus type: type 2 Diabetes mellitus complication status: with hyperglycemia Diabetes mellitus correction insulin use: without road machinery inspector use Qualified Code(s): E11.65 - Type 2 diabetes mellitus with hyperglycemia (9) HTN (hypertension) Current Visit: Yes Status: Chronic Qualifiers: Hypertension type: essential hypertension Qualified Code(s): I10 - Essential (primary) hypertension (10) Dermatitis Current Visit: Yes Status: Chronic - Constitutional Vitals: Temp Pulse Resp BP Pulse Ox 98 F 85 20 126/96 97 12/25/17 14:46 12/25/17 14:46 12/25/17 16:11 12/25/17 14:46 12/25/17 16:11 Internal Medicine: Result - Labs CBC & Chem 7: 12/25/17 00:39 12/25/17 00:39 Labs: Short CBC 12/25/17 Range/Units 00:39 WBC 10.2 (4.3-11.1) K/mcL Hgb 16.7 (12.9-16.9) g/dL Hct 49.3 (37.5-50.1) % Plt Count 108 L (140-400) K/mcL Neutrophils # 7.9 (1.6-8.9) K/mcL BMP 12/25/17 00:39 Sodium 135 L Potassium 3.5 Chloride 101 Carbon Dioxide 26 BUN 22 Creatinine 1.27 Glucose 138 H Calcium 8.6 - ABG Interpretation ABG results: PT/INR, D-dimer PT 13.5 Seconds (9.4-12.1) H 12/24/17 00:24 - Impressions Impressions Chest CTA 12/25/17 08:19 IMPRESSION: Small right lower lobe pulmonary embolism which has decreased in size. The previously noted right upper lobe pulmonary embolism has resolved. No new embolism is detected. Small right lower lobe infiltrate is identified which likely represents a stable pulmonary infarct. D/ / 12/25/2017 10:02:56 Umair Weinstein MD / giorgio Interpreting Provider: Umair Weinstein MD - Attending Attestation I examined this patient and my medical decision-making was reviewed with the Resident Physician on 12/25/17. I agree with the documented findings, disposition and treatment plan as described except to the extent set forth below. Mr Khalil is currently admitted for acute PE and RLE DVT. He has also developed atrial flutter. He remains moderate to high risk due to potential for worsening clinical status. Mr Khalil is having constipation at this time. His rash is also worsening. He went into rapid atrial flutter last night. He is rate controlled on cardizem drip. No new chest pain. Exam alert. Comfortable now Heart irreg No wheeze Diffuse rash - redder at this time. I/P 1. R side PE - repeat CTA with improved clot burden 2. Atrial flutter on Card drip 3. DVT R leg 4. Rash 5. Constipation Further diagnoses and plan as above.
[2017-12-25] MEDS: Insulin LISPRO 300 UNITS/3 ML VIAL SQ SCH ×4 (09:44→22:41)
[2017-12-25] MEDS: Sennosides/Docusate Sodium TABLET PO SCH (09:49)
[2017-12-25] MEDS ORDERED: MOM Conc 10 ML UD.LIQ PO ONE (18:06)
--- NOTE | 2017-12-25 20:32 | Electrocardiograph Report ---
[address] [place] [address] Test Date: 2017-12-25 Pat Name: Geovanni Khalil Department: 111 Room: 2NE28 Gender: M Crimper Assembler: PABLO : 1940 Requested By: Justin Wray Order Number: [id number] Reading MD: Drake Gómez MD Measurements Intervals [place] Rate: 111 P: [place]: 0 QRS: -27 QRSD: 96 T: -5 QT: 302 QTc: 368 Interpretive Statements ATRIAL FLUTTER WITH RAPID VENTRICULAR RESPONSE INFERIOR MYOCARDIAL INFARCTION, OF INDETERMINATE AGE Poor R wave progression Electronically Signed On 12-25-2017 20:30:50 EST by Drake Gómez MD
[2017-12-25] MEDS: Ondansetron 4 MG/2 ML VIAL IVP PRN (23:30)
[2017-12-26] MEDS: Ipratropium/Albuterol Neb 3 ML IH SCH ×7 (00:06→23:39)
[2017-12-26] MEDS: Heparin 25,000 UNIT/500 ML D5W 25,000 UNIT/500 ML BAG IVC SCH ×2 (02:35→22:13)
[2017-12-26 08:07] LABS: Hematocrit 49.5 % (37.5-50.1); Mean Corpuscular HGB Conc 34.3 g/dL (31.6-35.5); Mean Corpuscular Hemoglobin 30.4 pg (28.0-33.3); Mean Corpuscular Volume 88.6 fL (83.0-100.0); Mean Platelet Volume 9.2 fL (9.4-12.4); Platelet Count 124 K/mcL (140-400); Red Blood Count 5.59 M/mcL (4.19-5.50); Red Cell Distribution Width 13.4 % (11.5-14.5)
[2017-12-26 08:23] LABS: BUN/Creatinine Ratio 14 (6-26); Blood Urea Nitrogen 16 mg/dL (8-23); Calcium 8.5 mg/dL (8.6-10.3); Carbon Dioxide 27 mEq/L (23-29); Chloride 100 mEq/L (98-107); Glucose 174 mg/dL (70-105); Osmolality,Calculated 283 (280-300); Potassium 4.1 mEq/L (3.5-5.1); Sodium 134 mEq/L (136-145); eGFR For African Americans > 60 (> 60); eGFR For Non-African Americans > 60 (> 60)
[2017-12-26] MEDS: Sennosides/Docusate Sodium TABLET PO SCH (09:01)
[2017-12-26] MEDS: Insulin LISPRO 300 UNITS/3 ML VIAL SQ SCH ×3 (09:01→22:22)
--- NOTE | 2017-12-26 11:25 | Internal Med Progress Note ---
<Ritesh Lancaster - Last Filed: 12/26/17 16:42> Date of Encounter: 12/26/17 Time of Encounter: 09:00 - Assessment and plan (1) Pulmonary embolism and infarction Current Visit: Yes Status: Acute Assessment and plan: - Pulmonary embolism as demonstrated on CTA in emergency Department -Demonstrated right-sided PE with lateral right lower lobe infarction. Repeat CTA performed yesterday due to concern of increased clot burden showing stable pulmonary embolism with no new infarction. No new emboli - Echocardiogram showing ejection fraction of 65% with mild diastolic dysfunction. Grossly normal function of right ventricle - Venous Doppler shows positive DVT in right lower extremity and popliteal and posterior tibial vein - Etiology unclear at this time, however suspect inactivity as most likely cause Plan - Continue heparin drip and plan to bridge to long-term coagulation - Patient expresses interest in NOAC. Patient has been on Xarelto previously. - Patient has a significant history of medical allergies including derivative ingredients. We will start Xarelto while he is an inpatient, however we are transitioning to oral Cardizem this evening from Cardizem drip so we will wait to transition to long-term anticoagulation tomorrow in order to rule out reaction to either medication. - Continue supplemental oxygen as needed, currently tolerating 2 L via nasal cannula 95%, will likely improve with decreased clot burden (2) Atrial flutter Current Visit: Yes Status: Acute Assessment and plan: - Patient's complaint of chest pain during early yesterday morning - EKG at that time revealed atrial flutter with a rate of 111. No evidence of ischemia - Likely secondary to increased demand and myocardial stress in the setting of pulmonary embolism - Repeat CTA as above. - Patient is currently in normal sinus rhythm with a rate of 84 on Cardizem drip Plan -Patient is already being anticoagulated with heparin drip for pulmonary embolism - We will rate control with Cardizem. Transition from drip to by mouth Cardizem today - We will start short acting Cardizem in case of medication allergy Qualifiers: Atrial flutter type: unspecified Qualified Code(s): I48.92 - Unspecified atrial flutter (3) Chest pain Current Visit: Yes Status: Resolved Assessment and plan: - Likely secondary to known PE as demonstrated on CTA. - Mild complaints of chest pain yesterday similar to presentation. - Resolved. 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 - Pt is noticeably red covering a large portion of his body. No complaints of itching, skin sloughing, pain. Patient states this is chronic Plan - Continue home meds. Follow up as outpatient - Avoid allergies. - Have requested records from compounding technician at [facility], Dr. Jonas (5) Polycythemia Current Visit: Yes Status: Acute Assessment and plan: - H/H return to normal limits with H&H most recently of 17.0/49.5 - Platelets low at 124 and WBC of 7.0 - Possibly reactive secondary to PE vs Asthma vs undiagnosed sleep apnea -Iron studies demonstrating mild iron deficiency anemia. Plan - Continue to monitor and treat underlying issues as they are discovered. - Will likely need to follow up as outpatient with PCP and possibly hematology - Overnight oxygen saturation (6) Thrombocytopenia Current Visit: Yes Status: Acute Assessment and plan: - As above. - possibly reactive. - Platelets of 124 - No signs of bleed. Will monitor with anticoagulation (7) Acute kidney injury Current Visit: Yes Status: Acute Assessment and plan: - BUNs/creatinine of 16/1.14, improved from previous - Likely secondary to dehydration. Has improved with gentle IV hydration - We will continue to monitor and avoid nephrotoxic agents (8) Diabetes mellitus Current Visit: Yes Status: Chronic Assessment and plan: - Type 2 diabetes mellitus - Patient has been poorly compliant with medications due to fear of allergy - Blood sugar this morning of 174, hemoglobin A1c of 7.1% - Patient is currently on low-dose sliding scale insulin Qualifiers: Diabetes mellitus type: type 2 Diabetes mellitus complication status: with hyperglycemia Diabetes mellitus brass pickler insulin use: without brass pickler use Qualified Code(s): E11.65 - Type 2 diabetes mellitus with hyperglycemia (9) HTN (hypertension) Current Visit: Yes Status: Chronic Assessment and plan: BP of 126/85 - Carefully monitor for increased clot burden and transition to massive pulmonary embolism. Currently hemodynamically stable - Continue Home medications Qualifiers: Hypertension type: essential hypertension Qualified Code(s): I10 - Essential (primary) hypertension (10) DVT prophylaxis Current Visit: Yes Status: Acute Assessment and plan: - Patient presents with DVT, PE - Currently receiving heparin drip - Time Spent With Patient 25 - 35 minutes - Subjective Interval history: Patient seen and examined at bedside this morning. He reports no further episodes of chest or abdominal pain. He states he is not experiencing any symptoms of shortness of breath, fevers, chills, cough, leg pain. He does state that he has still not had a bowel movement and is getting concerned. He does note that he just got medications for this and would like to wait until this afternoon before further management. - Constitutional Vitals: Temp Pulse Resp BP Pulse Ox 98.3 F 83 18 131/86 94 12/26/17 11:01 12/26/17 11:01 12/26/17 11:01 12/26/17 07:06 12/26/17 11:01 Exam: Gen.: Vitals noted. No acute distress. AAOx3 HEENT: PERRL/EOMI, oropharynx clear, Normocephalic, atraumatic Cardiac: RRR, no murmur, +S1/S2 Pulmonary: CTA bilaterally, no wheezes, rales or rhonchi, equal chest expansion Abdomen: soft, nontender, BS noted, no guarding MSK: ROM intact, no joint swelling noted Extremities: no BLE edema, nontender calf, no cyanosis or clubbing Skin: Continued diffuse erythema. Possibly mildly worsened from previous. Neuro: A&Ox3, moves all extremities, no focal deficits Psych: Appropriate mood and behavior Internal Medicine: Result - Labs CBC & Chem 7: 12/26/17 07:50 12/26/17 07:50 Labs: Short CBC 12/26/17 Range/Units 07:50 WBC 7.0 (4.3-11.1) K/mcL Hgb 17.0 H (12.9-16.9) g/dL Hct 49.5 (37.5-50.1) % Plt Count 124 L (140-400) K/mcL BMP 12/26/17 07:50 Sodium 134 L Potassium 4.1 Chloride 100 Carbon Dioxide 27 BUN 16 Creatinine 1.14 Glucose 174 H Calcium 8.5 L - ABG Interpretation ABG results: PT/INR, D-dimer PT 13.5 Seconds (9.4-12.1) H 12/24/17 00:24 Consult Discharge Plan - Plan Referrals: Génesis Valladares DO [Primary Care Provider] - Prescriptions: Rivaroxaban [Xarelto] 1 dose PO AD 30 Days #1 pack <Eric Nunez - Last Filed: 12/26/17 19:21> Date of Encounter: 12/26/17 - Assessment and plan (1) Pulmonary embolism and infarction Current Visit: Yes Status: Acute (2) Atrial flutter Current Visit: Yes Status: Acute Qualifiers: Atrial flutter type: typical Qualified Code(s): I48.3 - Typical atrial flutter (3) DVT (deep venous thrombosis) Current Visit: Yes Status: Acute Qualifiers: DVT location: lower extremity Affected thrombotic vein of extremity: popliteal Chronicity: acute Laterality: right Qualified Code(s): I82.431 - Acute embolism and thrombosis of right popliteal vein (4) DVT (deep venous thrombosis) Current Visit: Yes Status: Acute Qualifiers: DVT location: lower extremity Affected thrombotic vein of extremity: tibial Chronicity: acute Laterality: right Qualified Code(s): I82.441 - Acute embolism and thrombosis of right tibial vein (5) Constipation Current Visit: Yes Status: Acute Qualifiers: Constipation type: slow transit constipation Qualified Code(s): K59.01 - Slow transit constipation (6) Polycythemia Current Visit: Yes Status: Acute (7) Thrombocytopenia Current Visit: Yes Status: Acute (8) Diabetes mellitus Current Visit: Yes Status: Chronic Qualifiers: Diabetes mellitus type: type 2 Diabetes mellitus complication status: with hyperglycemia Diabetes mellitus mcfp insulin use: without mcfp use Qualified Code(s): E11.65 - Type 2 diabetes mellitus with hyperglycemia (9) HTN (hypertension) Current Visit: Yes Status: Chronic Qualifiers: Hypertension type: essential hypertension Qualified Code(s): I10 - Essential (primary) hypertension (10) Dermatitis Current Visit: Yes Status: Chronic - Constitutional Vitals: Temp Pulse Resp BP Pulse Ox 98.1 F 84 18 126/85 94 12/26/17 16:14 12/26/17 16:14 12/26/17 16:14 12/26/17 16:14 12/26/17 16:14 Internal Medicine: Result - Labs CBC & Chem 7: 12/26/17 07:50 12/26/17 07:50 Labs: Short CBC 12/26/17 Range/Units 07:50 WBC 7.0 (4.3-11.1) K/mcL Hgb 17.0 H (12.9-16.9) g/dL Hct 49.5 (37.5-50.1) % Plt Count 124 L (140-400) K/mcL BMP 12/26/17 07:50 Sodium 134 L Potassium 4.1 Chloride 100 Carbon Dioxide 27 BUN 16 Creatinine 1.14 Glucose 174 H Calcium 8.5 L - ABG Interpretation ABG results: PT/INR, D-dimer PT 13.5 Seconds (9.4-12.1) H 12/24/17 00:24 - Attending Attestation I examined this patient and my medical decision-making was reviewed with the Resident Physician on 12/26/17. I agree with the documented findings, disposition and treatment plan as described except to the extent set forth below. Mr Khalil is currently admitted for acute PE and DVTs. He remains moderate to high risk due to potential for worsening clinical status. Mr Khalil is resting comfortably. He is now in NSR. His rash about the same. No other issues. Exam alert Comfortable Mucus membranes dry Heart reg Lungs clear I/P 1. PE 2. DVT Further diagnoses and plan as above.
[2017-12-26 21:59] LABS: FACV Specimen WHOLE BLOOD
[2017-12-26] MEDS: Ondansetron 4 MG/2 ML VIAL IVP PRN (23:35)
[2017-12-27] MEDS: Ipratropium/Albuterol Neb 3 ML IH SCH ×5 (04:04→20:09)
[2017-12-27 08:23] LABS: Basophils # 0.2 K/mcL (0.0-0.2); Basophils % 2.2 %; Eosinophils # 0.3 K/mcL (0.0-0.6); Hematocrit 50.9 % (37.5-50.1); Hemoglobin 17.1 g/dL (12.9-16.9); Immature Granulocytes % 5.2 % (0-4); Lymphocytes # 1.6 K/mcL (0.6-4.6); Lymphocytes % 20.1 %; Mean Corpuscular HGB Conc 33.6 g/dL (31.6-35.5); Mean Corpuscular Hemoglobin 29.9 pg (28.0-33.3); Monocytes # 0.6 K/mcL (0.0-1.3); Monocytes % 7.9 %; Neutrophils # 4.7 K/mcL (1.6-8.9); Platelet Count 137 K/mcL (140-400); Red Blood Count 5.72 M/mcL (4.19-5.50); Red Cell Distribution Width 13.3 % (11.5-14.5); Segmented Neutrophils % 60.6 %
[2017-12-27] MEDS: Sennosides/Docusate Sodium TABLET PO SCH (08:58)
[2017-12-27 09:01] LABS: BUN/Creatinine Ratio 15 (6-26); Blood Urea Nitrogen 18 mg/dL (8-23); Carbon Dioxide 27 mEq/L (23-29); Chloride 99 mEq/L (98-107); Glucose 151 mg/dL (70-105); Osmolality,Calculated 283 (280-300); Sodium 134 mEq/L (136-145); eGFR For African Americans > 60 (> 60); eGFR For Non-African Americans > 60 (> 60)
--- NOTE | 2017-12-27 09:20 | Internal Med Progress Note ---
Date of Encounter: 12/27/17 Time of Encounter: 09:15 - Assessment and plan (1) Pulmonary embolism and infarction Current Visit: Yes Status: Acute Assessment and plan: - Pulmonary embolism as demonstrated on CTA in emergency Department -Demonstrated right-sided PE with lateral right lower lobe infarction. Repeat CTA performed yesterday due to concern of increased clot burden showing stable pulmonary embolism with no new infarction. No new emboli - Echocardiogram showing ejection fraction of 65% with mild diastolic dysfunction. Grossly normal function of right ventricle - Venous Doppler shows positive DVT in right lower extremity and popliteal and posterior tibial vein - Etiology unclear at this time, however suspect inactivity as most likely cause Plan - Continue heparin drip and plan to bridge to long-term coagulation - Patient expresses interest in NOAC. Patient has been on Xarelto previously. - Anticipate transition to oral Xarelto tomorrow. (2) Atrial flutter Current Visit: Yes Status: Acute Assessment and plan: Will transition to long acting Cardizem today. Qualifiers: Atrial flutter type: typical Qualified Code(s): I48.3 - Typical atrial flutter (3) DVT (deep venous thrombosis) Current Visit: Yes Status: Acute Assessment and plan: Continue anticoagulation with heparin and plan transition to Xarelto tomorrow. Qualifiers: DVT location: lower extremity Affected thrombotic vein of extremity: popliteal Chronicity: acute Laterality: right Qualified Code(s): I82.431 - Acute embolism and thrombosis of right popliteal vein (4) DVT (deep venous thrombosis) Current Visit: Yes Status: Acute Qualifiers: DVT location: lower extremity Affected thrombotic vein of extremity: tibial Chronicity: acute Laterality: right Qualified Code(s): I82.441 - Acute embolism and thrombosis of right tibial vein (5) Constipation Current Visit: Yes Status: Acute Assessment and plan: Continues to have issues. Check abd series - distended colon Will check CT of abd and pelvis. If no obstruction will give enema. Qualifiers: Constipation type: slow transit constipation Qualified Code(s): K59.01 - Slow transit constipation (6) Polycythemia Current Visit: Yes Status: Acute Assessment and plan: - H/H return to normal limits with H&H most recently of 17.0/49.5 - Platelets low at 124 and WBC of 7.0 - Possibly reactive secondary to PE vs Asthma vs undiagnosed sleep apnea -Iron studies demonstrating mild iron deficiency anemia. Plan - Continue to monitor and treat underlying issues as they are discovered. - Will likely need to follow up as outpatient with PCP and possibly hematology (7) Thrombocytopenia Current Visit: Yes Status: Acute Assessment and plan: - Has been improving. - No signs of bleed. Will monitor with anticoagulation (8) Diabetes mellitus Current Visit: Yes Status: Chronic Assessment and plan: - Type 2 diabetes mellitus - Patient has been poorly compliant with medications due to fear of allergy - Continue insulin coverage as ordered Qualifiers: Diabetes mellitus type: type 2 Diabetes mellitus complication status: with hyperglycemia Diabetes mellitus intermodal dispatcher insulin use: without intermodal dispatcher use Qualified Code(s): E11.65 - Type 2 diabetes mellitus with hyperglycemia (9) HTN (hypertension) Current Visit: Yes Status: Chronic Assessment and plan: - Carefully monitor for increased clot burden and transition to massive pulmonary embolism. 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 - Pt is noticeably red covering a large portion of his body. No complaints of itching, skin sloughing, pain. Patient states this is chronic Plan - Continue home meds. Follow up as outpatient - Avoid allergies. - Have requested records from carpenter foreman at [facility], Dr. Jonas - Subjective Interval history: Mr. Khalil is currently admitted for DVT and PE. He is very constipated today. He remains moderate to high risk due to potential for worsening clinical status. Mr Khalil is feeling OK except for his bowels. He feels very distended and has not had a BM. No fever or chills. Breathing is OK. Tolerating PO Cardizem. - Constitutional Vitals: Temp Pulse Resp BP Pulse Ox 97.7 F 80 17 139/95 92 12/27/17 04:00 12/27/17 06:55 12/27/17 07:30 12/27/17 06:58 12/27/17 07:30 General appearance: Present: A&O X 3, pleasant, answers questions appropriately - Head Head exam: Present: normocephalic - Eye Eye exam: Present: conjuntiva pink - ENT ENT exam: Present: mucous membranes moist - Respiratory Respiratory exam: Present: decreased breath sounds, rales Additional comments: Scattered rales R base. No wheeze. - Cardiovascular Cardiovascular exam: Present: RRR. Absent: tachycardia - GI/Abdominal GI/Abdominal exam: Present: distended, soft. Absent: tenderness - Extremities Exam Extremities exam: Present: warm - Neurological Exam Neurological exam: Present: alert, oriented X3, no focal deficits - Skin Skin exam: Present: erythema, rash Internal Medicine: Result - Labs CBC & Chem 7: 12/27/17 07:59 12/27/17 07:59 Labs: Short CBC 12/27/17 Range/Units 07:59 WBC 7.8 (4.3-11.1) K/mcL Hgb 17.1 H (12.9-16.9) g/dL Hct 50.9 H (37.5-50.1) % Plt Count 137 L (140-400) K/mcL Neutrophils # 4.7 (1.6-8.9) K/mcL BMP 12/27/17 07:59 Sodium 134 L Potassium 4.0 Chloride 99 Carbon Dioxide 27 BUN 18 Creatinine 1.18 Glucose 151 H Calcium 9.0 - ABG Interpretation ABG results: PT/INR, D-dimer PT 13.5 Seconds (9.4-12.1) H 12/24/17 00:24 Consult Discharge Plan - Plan Referrals: Génesis Valladares DO [Primary Care Provider] - Prescriptions: Rivaroxaban [Xarelto] 1 dose PO AD 30 Days #1 pack
[2017-12-27] MEDS: Insulin LISPRO 300 UNITS/3 ML VIAL SQ SCH ×2 (11:28→18:59)
[2017-12-27] MEDS ORDERED: Diltiazem CD (24hr) 180 MG CAPSULE PO SCH (15:00)
[2017-12-27] MEDS ORDERED: Milk and Molasses Enema 200 ML RC ONE (18:14)
[2017-12-27] MEDS: Heparin 25,000 UNIT/500 ML D5W 25,000 UNIT/500 ML BAG IVC SCH (18:27)
[2017-12-28] MEDS: Ipratropium/Albuterol Neb 3 ML IH SCH ×6 (00:02→20:30)
[2017-12-28] MEDS ORDERED: Bisacodyl 10 MG RECTAL SUPPOSITORY RC ONE (08:32)
--- NOTE | 2017-12-28 08:34 | Internal Med Progress Note ---
Date of Encounter: 12/28/17 Time of Encounter: 08:34 - Assessment and plan (1) Constipation Current Visit: Yes Status: Acute Assessment and plan: Continues to have issues. Xray questions SBO Will have surgery eval today Qualifiers: Constipation type: slow transit constipation Qualified Code(s): K59.01 - Slow transit constipation (2) Pulmonary embolism and infarction Current Visit: Yes Status: Acute Assessment and plan: - Pulmonary embolism as demonstrated on CTA in emergency Department -Demonstrated right-sided PE with lateral right lower lobe infarction. Repeat CTA performed yesterday due to concern of increased clot burden showing stable pulmonary embolism with no new infarction. No new emboli - Echocardiogram showing ejection fraction of 65% with mild diastolic dysfunction. Grossly normal function of right ventricle - Venous Doppler shows positive DVT in right lower extremity and popliteal and posterior tibial vein - Etiology unclear at this time, however suspect inactivity as most likely cause Plan - Continue heparin drip and plan to bridge to long-term coagulation - Patient expresses interest in NOAC. Patient has been on Xarelto previously. - Anticipate transition to oral Xarelto Friday. (3) Atrial flutter Current Visit: Yes Status: Acute Assessment and plan: Did not seem to tolerate long acting Cardizem. Will put back on short acting med. Qualifiers: Atrial flutter type: typical Qualified Code(s): I48.3 - Typical atrial flutter (4) DVT (deep venous thrombosis) Current Visit: Yes Status: Acute Assessment and plan: Continue anticoagulation with heparin and plan transition to Xarelto Qualifiers: DVT location: lower extremity Affected thrombotic vein of extremity: popliteal Chronicity: acute Laterality: right Qualified Code(s): I82.431 - Acute embolism and thrombosis of right popliteal vein (5) DVT (deep venous thrombosis) Current Visit: Yes Status: Acute Assessment and plan: As above Qualifiers: DVT location: lower extremity Affected thrombotic vein of extremity: tibial Chronicity: acute Laterality: right Qualified Code(s): I82.441 - Acute embolism and thrombosis of right tibial vein (6) Polycythemia Current Visit: Yes Status: Acute Assessment and plan: - H/H return to normal limits with H&H most recently of 17.0/49.5 - Platelets low at 124 and WBC of 7.0 - Possibly reactive secondary to PE vs Asthma vs undiagnosed sleep apnea -Iron studies demonstrating mild iron deficiency anemia. Plan - Continue to monitor and treat underlying issues as they are discovered. - Will likely need to follow up as outpatient with PCP and possibly hematology (7) Thrombocytopenia Current Visit: Yes Status: Acute Assessment and plan: - Has been improving. - No signs of bleed. Will monitor with anticoagulation (8) Diabetes mellitus Current Visit: Yes Status: Chronic Assessment and plan: - Type 2 diabetes mellitus - Patient has been poorly compliant with medications due to fear of allergy - Continue insulin coverage as ordered Qualifiers: Diabetes mellitus type: type 2 Diabetes mellitus complication status: with hyperglycemia Diabetes mellitus chcf insulin use: without chcf use Qualified Code(s): E11.65 - Type 2 diabetes mellitus with hyperglycemia (9) HTN (hypertension) Current Visit: Yes Status: Chronic Assessment and plan: - Carefully monitor for increased clot burden and transition to massive pulmonary embolism. 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 - Pt is noticeably red covering a large portion of his body. No complaints of itching, skin sloughing, pain. Patient states this is chronic Plan - Continue home meds. Follow up as outpatient - Avoid allergies. - Have requested records from event marketing manager at [facility], Dr. Jonas - Subjective Interval history: Mr. Khalil is currently admitted for DVT and PE. He is very constipated today. He remains moderate to high risk due to potential for worsening clinical status. Mr Khalil is still having a lot of bowel distention. No fever or chills. Had rash after starting sustained release Cardizem. Nauseated some. - Constitutional Vitals: Temp Pulse Resp BP Pulse Ox 97.8 F 81 18 127/104 93 12/28/17 08:07 12/28/17 08:07 12/28/17 08:07 12/28/17 08:07 12/28/17 08:07 General appearance: Present: A&O X 3, pleasant, answers questions appropriately - Head Head exam: Present: normocephalic - Eye Eye exam: Present: EOMI, conjuntiva pink - ENT ENT exam: Present: mucous membranes dry - Respiratory Respiratory exam: Present: decreased breath sounds. Absent: rales, rhonchi, wheezes - Cardiovascular Cardiovascular exam: Present: RRR. Absent: tachycardia - GI/Abdominal GI/Abdominal exam: Present: distended, soft. Absent: tenderness - Extremities Exam Extremities exam: Present: warm. Absent: tenderness - Neurological Exam Neurological exam: Present: alert, oriented X3 - Skin Skin exam: Present: erythema, rash, warm Internal Medicine: Result - Labs CBC & Chem 7: 12/28/17 09:22 12/28/17 09:22 Labs: Short CBC 12/27/17 Range/Units 07:59 WBC 7.8 (4.3-11.1) K/mcL Hgb 17.1 H (12.9-16.9) g/dL Hct 50.9 H (37.5-50.1) % Plt Count 137 L (140-400) K/mcL Neutrophils # 4.7 (1.6-8.9) K/mcL BMP 12/27/17 07:59 Sodium 134 L Potassium 4.0 Chloride 99 Carbon Dioxide 27 BUN 18 Creatinine 1.18 Glucose 151 H Calcium 9.0 - ABG Interpretation ABG results: PT/INR, D-dimer PT 13.5 Seconds (9.4-12.1) H 12/24/17 00:24 - Impressions Impressions Chest/Abdomen X-ray 12/27/17 09:15 IMPRESSION: 1. Gaseous distension of the colon, new since CT dated 12/23/2017. No obvious free air or pneumatosis. 2. No acute cardiopulmonary disease. D/ / 12/27/2017 13:10:21 Aracelis Sanchez MD / tam Interpreting Provider: Aracelis Sanchez MD Abdomen/Pelvis CT 12/27/17 12:39 IMPRESSION: No acute abnormality in the abdomen or pelvis. Gas-filled colon upper limits of normal in size. No bowel obstruction. D/ / Fede Lazo MD / Fede Lazo MD Interpreting Provider: Fede Lazo MD Consult Discharge Plan - Plan Referrals: Génesis Valladares DO [Primary Care Provider] - Prescriptions: Rivaroxaban [Xarelto] 1 dose PO AD 30 Days #1 pack
[2017-12-28] MEDS: Insulin LISPRO 300 UNITS/3 ML VIAL SQ SCH ×7 (08:43→22:36)
[2017-12-28] MEDS: Ondansetron 4 MG/2 ML VIAL IVP PRN (08:47)
[2017-12-28] MEDS: Sennosides/Docusate Sodium TABLET PO SCH (08:47)
[2017-12-28 09:38] LABS: Hemoglobin 18.6 g/dL (12.9-16.9); Mean Corpuscular HGB Conc 33.2 g/dL (31.6-35.5); Mean Corpuscular Hemoglobin 29.5 pg (28.0-33.3); Platelet Count 201 K/mcL (140-400); Red Cell Distribution Width 13.3 % (11.5-14.5)
[2017-12-28 09:41] LABS: Hematocrit 56.1 % (37.5-50.1)
[2017-12-28 09:50] LABS: Alanine Aminotransferase 26 Units/L (7-52); Albumin 3.4 g/dL (3.5-5.7); Alkaline Phosphatase 68 Units/L (34-104); Aspartate Amino Transferase 13 Units/L (13-39); BUN/Creatinine Ratio 14 (6-26); Bilirubin,Total 0.8 mg/dL (0.3-1.0); Blood Urea Nitrogen 18 mg/dL (8-23); Carbon Dioxide 25 mEq/L (23-29); Chloride 99 mEq/L (98-107); Globulin 3.3 g/dL (2.4-3.5); Glucose 167 mg/dL (70-105); Magnesium 2.4 mg/dL (1.6-2.6); Osmolality,Calculated 282 (280-300); Potassium 4.5 mEq/L (3.5-5.1); Sodium 133 mEq/L (136-145); Total Protein 6.7 g/dL (6.4-8.9); eGFR For African Americans > 60 (> 60); eGFR For Non-African Americans 52 (> 60)
[2017-12-28 10:42] LABS: Eosinophils # 1.6 K/mcL (0.0-0.6); Lymphocytes # 1.1 K/mcL (0.6-4.6); Monocytes # 0.2 K/mcL (0.0-1.3); Neutrophils # 7.6 K/mcL (1.6-8.9); Platelet Estimate Normal (Normal)
[2017-12-28] MEDS: dilTIAZem HCl 60 MG TABLET PO SCH ×3 (11:35→23:45)
[2017-12-28] MEDS: Heparin 25,000 UNIT/500 ML D5W 25,000 UNIT/500 ML BAG IVC SCH ×2 (12:24→22:35)
[2017-12-28] MEDS ORDERED: Ibuprofen 800 MG TABLET PO PRN (23:53)
[2017-12-29] MEDS: Ipratropium/Albuterol Neb 3 ML IH SCH ×7 (00:14→23:45)
[2017-12-29] MEDS: Heparin 25,000 UNIT/500 ML D5W 25,000 UNIT/500 ML BAG IVC SCH (01:08)
[2017-12-29] MEDS ORDERED: Bisacodyl 10 MG RECTAL SUPPOSITORY RC ONE (01:55)
[2017-12-29 06:44] LABS: Hematocrit 52.5 % (37.5-50.1); Hemoglobin 17.7 g/dL (12.9-16.9); Mean Corpuscular HGB Conc 33.7 g/dL (31.6-35.5); Mean Corpuscular Hemoglobin 29.9 pg (28.0-33.3); Mean Corpuscular Volume 88.8 fL (83.0-100.0); Mean Platelet Volume 9.3 fL (9.4-12.4); Platelet Count 195 K/mcL (140-400); Red Blood Count 5.91 M/mcL (4.19-5.50); Red Cell Distribution Width 13.6 % (11.5-14.5)
[2017-12-29 07:05] LABS: Calcium 9.2 mg/dL (8.6-10.3); Magnesium 2.4 mg/dL (1.6-2.6)
[2017-12-29 07:39] LABS: Antiphospholipid IgG High Spec 0 GPL (0-14); Antiphospholipid IgM High Spec 0 MPL (0-14)
[2017-12-29 07:40] LABS: Fac V Leiden R506Q Mut Result NEGATIVE
[2017-12-29] MEDS: Insulin LISPRO 300 UNITS/3 ML VIAL SQ SCH ×4 (08:36→21:28)
[2017-12-29] MEDS: Sennosides/Docusate Sodium TABLET PO SCH (08:40)
[2017-12-29] MEDS: dilTIAZem HCl 60 MG TABLET PO SCH ×2 (08:40→16:14)
--- NOTE | 2017-12-29 10:21 | Internal Med Progress Note ---
<Andre Che - Last Filed: 12/29/17 15:36> Date of Encounter: 12/29/17 Time of Encounter: 08:30 - Assessment and plan (1) Constipation Current Visit: Yes Status: Acute Assessment and plan: Evaluated by surgery, started on bowel prep regimen of milk and molasses enema, miralax, gatorade. Patient has since passed a small formed BM and continues to have flatulence. Appreciate surgery's continued evaluations and recommendations. Qualifiers: Constipation type: slow transit constipation Qualified Code(s): K59.01 - Slow transit constipation (2) Pulmonary embolism and infarction Current Visit: Yes Status: Acute Assessment and plan: - Pulmonary embolism was demonstrated on CTA in emergency Department -Demonstrated right-sided PE with lateral right lower lobe infarction. - Echocardiogram showing ejection fraction of 65% with mild diastolic dysfunction. Grossly normal function of right ventricle. - Venous Doppler showed positive DVT in right lower extremity and popliteal and posterior tibial vein - Etiology unclear at this time, however suspect inactivity as most likely cause Plan - Currently on heparin drip, plan to start Xarelto today. (3) Atrial flutter Current Visit: Yes Status: Acute Assessment and plan: Did not tolerate long acting cardizem, continuing onshort acting medication. Currently in Atrial flutter, rate controlled in 90s. Discussed with Cardiology, recommended TSH and echo-which patient has had and were essentially normal. Recommending outpatient cardio follow up. Qualifiers: Atrial flutter type: unspecified Qualified Code(s): I48.92 - Unspecified atrial flutter (4) DVT (deep venous thrombosis) Current Visit: Yes Status: Acute Assessment and plan: Continue anticoagulation with heparin and plan transition to Xarelto Qualifiers: DVT location: lower extremity Affected thrombotic vein of extremity: popliteal Chronicity: acute Laterality: right Qualified Code(s): I82.431 - Acute embolism and thrombosis of right popliteal vein (5) Polycythemia Current Visit: Yes Status: Acute Assessment and plan: - H&H most recently of 17.7/52.5 - Platelets low at 195 and WBC of 9.1 - Possibly reactive secondary to PE vs Asthma vs undiagnosed sleep apnea -Iron studies demonstrating mild iron deficiency anemia. Plan - Continue to monitor and treat underlying issues as they are discovered. - Will likely need to follow up as outpatient with PCP and possibly hematology (6) Thrombocytopenia Current Visit: Yes Status: Acute Assessment and plan: - Has been improving. - No signs of bleed. Will monitor with anticoagulation (7) Acute kidney injury Current Visit: Yes Status: Acute Assessment and plan: - BUNs/creatinine of 20/1.43, worsened from previous - Previously was improving with gentle hydration. - We will continue to monitor and avoid nephrotoxic agents. -Possibly secondary to abdominal compartment syndrome. (8) Diabetes mellitus Current Visit: Yes Status: Chronic Assessment and plan: - Type 2 diabetes mellitus - Patient has been poorly compliant with medications due to fear of allergy - Continue insulin coverage as ordered Qualifiers: Diabetes mellitus type: type 2 Diabetes mellitus complication status: with hyperglycemia Diabetes mellitus long term acute care registered nurse insulin use: without long term acute care registered nurse use Qualified Code(s): E11.65 - Type 2 diabetes mellitus with hyperglycemia (9) HTN (hypertension) Current Visit: Yes Status: Chronic Assessment and plan: - Carefully monitor for increased clot burden and transition to massive pulmonary embolism. 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 - Pt is noticeably red covering a large portion of his body. No complaints of itching, skin sloughing, pain. Patient states this is chronic Plan - Continue home meds. Follow up as outpatient - Avoid allergies. - Have requested records from manager acute at [facility], Dr. Jonas - Time Spent With Patient less than 15 minutes - Subjective Interval history: Patient notes passing gas with suppository last night. Notes increased abdominal distention and burping. No BMs. Requesting TUMS. Denies any respiratory difficulty. Afebrile. BP fluctuations, from 119/64 to 164/104. Worsening Cr today at 1.43. CXR and KUB yesterday showed no acute abdominal changes. - Constitutional Vitals: Temp Pulse Resp BP Pulse Ox 98.1 F 80 14 164/104 93 12/29/17 06:45 12/29/17 06:45 12/29/17 08:27 12/29/17 06:45 12/29/17 08:27 General appearance: Present: A&O X 3, pleasant, answers questions appropriately - Head Head exam: Present: atraumatic, normocephalic - Eye Eye exam: Present: EOMI, conjuntiva pink - ENT ENT exam: Present: mucous membranes moist - Neck Neck exam general surgery: Present: full ROM, supple - Respiratory Respiratory exam: Present: CTAB. Absent: respiratory distress, stridor, wheezes - Cardiovascular Cardiovascular exam: Present: RRR. Absent: diastolic murmur, systolic murmur - GI/Abdominal GI/Abdominal exam: Present: distended, hyperactive bowel sounds. Absent: tenderness - Extremities Exam Extremities exam: Present: warm. Absent: cyanotic, tenderness - Neurological Exam Neurological exam: Present: alert, oriented X3 - Skin Skin exam: Present: dry, erythema, rash, warm Internal Medicine: Result - Labs CBC & Chem 7: 12/29/17 05:59 12/29/17 05:59 Labs: Short CBC 12/28/17 12/29/17 Range/Units 09:22 05:59 WBC 9.1 (4.3-11.1) K/mcL Hgb 17.7 H (12.9-16.9) g/dL Hct 52.5 H (37.5-50.1) % Plt Count 195 (140-400) K/mcL Neutrophils # 7.6 (1.6-8.9) K/mcL BMP 12/29/17 05:59 Sodium 134 L Potassium 4.0 Chloride 98 Carbon Dioxide 27 BUN 20 Creatinine 1.43 H Glucose 149 H Calcium 9.2 - ABG Interpretation ABG results: PT/INR, D-dimer PT 13.5 Seconds (9.4-12.1) H 12/24/17 00:24 - Impressions Impressions KUB X-Ray 12/28/17 08:31 IMPRESSION: Mild dilation of some small bowel loops within the abdomen, possibly ileus. Small-bowel obstruction is not excluded. D/ / Dory Burgos Cha, MD / Dory Burgos Cha, MD Interpreting Provider: Dory Bugros Cha, MD Chest/Abdomen X-ray 12/28/17 10:52 IMPRESSION: 1. No acute cardiopulmonary disease. 2. Unchanged appearance since earlier today of gaseous distention of the small bowel and colon. The colon is not significantly changed since the CT dated 12/27/2017. Gaseous distention of the small bowel appears new. Ileus is favored over obstruction. D/ : / 12/28/2017 12:34:50 Aracelis Sanchez MD / [email or web address] Interpreting Provider: Aracelis Sanchez MD Consult Discharge Plan - Plan Referrals: Génesis Valladares DO [Primary Care Provider] - Prescriptions: Rivaroxaban [Xarelto] 1 dose PO AD 30 Days #1 pack <Eric Nunez - Last Filed: 12/29/17 18:05> Date of Encounter: 12/29/17 - Assessment and plan (1) Constipation Current Visit: Yes Status: Acute Qualifiers: Constipation type: slow transit constipation Qualified Code(s): K59.01 - Slow transit constipation (2) Pulmonary embolism and infarction Current Visit: Yes Status: Acute (3) Atrial flutter Current Visit: Yes Status: Acute Qualifiers: Atrial flutter type: typical Qualified Code(s): I48.3 - Typical atrial flutter (4) DVT (deep venous thrombosis) Current Visit: Yes Status: Acute Qualifiers: DVT location: lower extremity Affected thrombotic vein of extremity: popliteal Chronicity: acute Laterality: right Qualified Code(s): I82.431 - Acute embolism and thrombosis of right popliteal vein (5) DVT (deep venous thrombosis) Current Visit: Yes Status: Acute Qualifiers: DVT location: lower extremity Affected thrombotic vein of extremity: tibial Chronicity: acute Laterality: right Qualified Code(s): I82.441 - Acute embolism and thrombosis of right tibial vein (6) Polycythemia Current Visit: Yes Status: Acute (7) Thrombocytopenia Current Visit: Yes Status: Resolved (8) Diabetes mellitus Current Visit: Yes Status: Chronic Qualifiers: Diabetes mellitus type: type 2 Diabetes mellitus complication status: with hyperglycemia Diabetes mellitus shelter insulin use: without long term acute care registered nurse use Qualified Code(s): E11.65 - Type 2 diabetes mellitus with hyperglycemia (9) HTN (hypertension) Current Visit: Yes Status: Chronic Qualifiers: Hypertension type: essential hypertension Qualified Code(s): I10 - Essential (primary) hypertension (10) Dermatitis Current Visit: Yes Status: Chronic - Time Spent With Patient My time was 32min - Constitutional Vitals: Temp Pulse Resp BP Pulse Ox 97.8 F 67 14 118/95 95 12/29/17 15:07 12/29/17 15:07 12/29/17 15:48 12/29/17 15:07 12/29/17 15:48 Internal Medicine: Result - Labs CBC & Chem 7: 12/29/17 05:59 12/29/17 05:59 Labs: Short CBC 12/29/17 Range/Units 05:59 WBC 9.1 (4.3-11.1) K/mcL Hgb 17.7 H (12.9-16.9) g/dL Hct 52.5 H (37.5-50.1) % Plt Count 195 (140-400) K/mcL BMP 12/29/17 05:59 Sodium 134 L Potassium 4.0 Chloride 98 Carbon Dioxide 27 BUN 20 Creatinine 1.43 H Glucose 149 H Calcium 9.2 - ABG Interpretation ABG results: PT/INR, D-dimer PT 13.5 Seconds (9.4-12.1) H 12/24/17 00:24 - Attending Attestation I examined this patient and my medical decision-making was reviewed with the Resident Physician on 12/29/17. I agree with the documented findings, disposition and treatment plan as described except to the extent set forth below. Mr Khalil is currently admitted for acute PE. He is significantly constipated and is receiving meds. He remains moderate to high risk due to potential for worsening clinical status. Mr Khalil is passing a lot of gas at this time. Had small BMs. Discomfort seems to be improving. No fever or chills. Exam alert. Comfortable Heart irreg Lungs no wheeze Abd distended I/P 1. Constipation 2. PE 3. A flutter Further diagnoses and plan as above. Transition to PO Xarelto today.
[2017-12-29] MEDS ORDERED: Polyethylene Glycol 3350 255 GM POWDER PO ONE (11:21)
--- NOTE | 2017-12-29 11:25 | General Surgery Consult Note ---
Date of Encounter: 12/29/17 Time of Encounter: 10:45 Assessment and Plan (1) Constipation Current Visit: Yes Status: Acute NPO except ice chips and medications Milk and Molasses enemas X 2 today Miralax and Gatorade bowel prep- patient to sip on prep as tolerated until he has a significant bowel movement Continue stool softners BID Supportive measures Serial abdominal exams Surgery will continue to follow and assess progress Qualifiers: Constipation type: slow transit constipation Qualified Code(s): K59.01 - Slow transit constipation (2) Pulmonary embolism and infarction Current Visit: Yes Status: Acute Management per primary medicine service (3) Atrial flutter Current Visit: Yes Status: Acute Qualifiers: Atrial flutter type: unspecified Qualified Code(s): I48.92 - Unspecified atrial flutter (4) DVT (deep venous thrombosis) Current Visit: Yes Status: Acute Qualifiers: DVT location: lower extremity Affected thrombotic vein of extremity: popliteal Chronicity: acute Laterality: right Qualified Code(s): I82.431 - Acute embolism and thrombosis of right popliteal vein (5) Diabetes mellitus Current Visit: Yes Status: Chronic Management per primary medicine service Qualifiers: Diabetes mellitus type: type 2 Diabetes mellitus complication status: with hyperglycemia Diabetes mellitus watermelon inspector insulin use: without assisted use Qualified Code(s): E11.65 - Type 2 diabetes mellitus with hyperglycemia (6) HTN (hypertension) Current Visit: Yes Status: Chronic Management per primary medicine service Qualifiers: Hypertension type: essential hypertension Qualified Code(s): I10 - Essential (primary) hypertension History of Present Illness Consult date: 12/28/17 Requesting physician: Eric Nunez History of present illness: Mr. Khalil is a very pleasant 77 year old male who presented to the hospital with complaints of acute onset of chest pain. He was found to have a pulmonary embolism with infarction and he has been admitted to the hospital for further treatment. Surgery has been consulted due to abnormal x-ray results which show possibility of ileus. The patient reports that he does have a decreased appetite and he does feel bloated. He admits to occasional nausea without vomiting. He states that he has not has a bowel movement for 3 days which is atypical for him. He reports that he feels constipated due to the pain medications he has taken. He reports that he does occasionally have mild constipation at home which he treats with over the counter stool softners. Denies any abdominal pain. Denies any history of melena or hematochezia. Denies any unexplained weight loss. Denies any difficulty with urination. Surgery has been asked to see and evaluate the patient for recommendations. Past Med Surg Social Fam HX - Past Medical History Source: old records reviewed Medical history: asthma, COPD, hypertension, other Psychiatric history: no psych history - Past Surgical History Surgical History: herniorrhaphy (Right inguinal), knee replacement (right knee) , other (Colonoscopy- 2012; Heart ablation- 2012; Prostate surgery) - Social History Smoking Status: Never smoker Smokeless Tobacco Status: No Alcohol use: none Drug use: none Current living situation: Home - Independent Activity Level: Independent ambulation - Family History Father Living Status: Cause of : prostate cancer Hx Family Cancer: Yes ( of prostate cancer) Mother History Unknown: Yes Living Status: Medications and Allergies Rivaroxaban [Xarelto] 1 dose PO AD 30 Days #1 pack 12/25/17 [Rx] 3 Allergy/AdvReac Type Severity Reaction Status Date / Time acetaminophen [From Percocet] Allergy Rash Verified 12/26/17 02:03 diphenhydramine Allergy Rash Verified 12/25/17 21:16 [From Benadryl] formaldehyde Allergy Rash Verified 12/23/17 14:14 Oxycodone [From Percocet] Allergy Rash Verified 12/26/17 02:03 soybean Allergy Rash Verified 12/23/17 14:14 Review of Systems All systems PM: reviewed and no additional remarkable complaints except as stated (in the HPI) All systems PM: A 10-system review of systems was performed and is negative for pertinent findings except as documented above in the HPI. General Surgery Exam Initial Vital Signs Temp Pulse Resp BP Pulse Ox 98.1 F 103 24 115/87 91 12/23/17 14:14 12/23/17 14:14 12/23/17 14:14 12/23/17 14:14 12/23/17 14:14 - General physical appearance well developed, well nourished, no distress, no pain - Eyes PERRL, normal ocular movement - ENT normal mucosa, atraumatic, normocephalic - Neck trachea midline - Respiratory normal respiratory effort, clear to auscultation - Cardiovascular Cardiovascular exam: Present: irregular rhythm - Abdomen Abdomen general surgery: Present: bowel sounds present, soft, non tender, distended (mildly) - Integumentary Integumentary general surgery: Present: warm and dry - Neurologic Present: CN 2-12 grossly intact - Musculoskeletal Present: normal gait, normal posture - Psychiatric Psychiatric general surgery: Present: appropriate, oriented to person, oriented to place, oriented to time, speech is normal, memory intact Exam Initial Vital Signs Temp Pulse Resp BP Pulse Ox 98.1 F 103 24 115/87 91 12/23/17 14:14 12/23/17 14:14 12/23/17 14:14 12/23/17 14:14 12/23/17 14:14 Results - Labs 12/29/17 05:59 12/29/17 05:59 Abnormal lab results RBC 5.91 M/mcL (4.19-5.50) H 12/29/17 05:59 Hgb 17.7 g/dL (12.9-16.9) H 12/29/17 05:59 Hct 52.5 % (37.5-50.1) H 12/29/17 05:59 MPV 9.3 fL (9.4-12.4) L 12/29/17 05:59 Immature Gran % 5.2 % (0-4) H 12/27/17 07:59 Metamyelocytes % 6.0 % (0) H 12/28/17 09:22 Eosinophils # 1.6 K/mcL (0.0-0.6) H 12/28/17 09:22 PT 13.5 Seconds (9.4-12.1) H 12/24/17 00:24 APTT 92.8 Seconds (26.0-36.0) H 12/29/17 08:03 Antithrombin III Activ 71 % (76-128) L 12/24/17 00:24 Heparin Anti-Xa, Unfract 0.95 IU/mL (0.30-0.70) H 12/24/17 00:24 Sodium 134 mEq/L (136-145) L 12/29/17 05:59 Creatinine 1.43 mg/dL (0.70-1.30) H 12/29/17 05:59 Est GFR ( Amer) 58 (> 60) L 12/29/17 05:59 Est GFR (Non-Af Amer) 48 (> 60) L 12/29/17 05:59 Glucose 149 mg/dL (70-105) H 12/29/17 05:59 POC Glucose 134 (58-89) H 12/28/17 20:35 Hemoglobin A1c 7.1 % (-5.6) H 12/24/17 00:24 Iron 27 mcg/dL (65-175) L 12/24/17 08:48 % Saturation 10 % (20-55) L 12/24/17 08:48 Transferrin 190 mg/dL (203-362) L 12/24/17 08:48 Albumin 3.4 g/dL (3.5-5.7) L 12/28/17 09:22 Albumin/Globulin Ratio 1.0 (1.1-2.2) L 12/28/17 09:22 Diabetes panel 12/29/17 Range/Units 05:59 Sodium 134 L (136-145) mEq/L Potassium 4.0 (3.5-5.1) mEq/L Chloride 98 (98-107) mEq/L Carbon Dioxide 27 (23-29) mEq/L BUN 20 (8-23) mg/dL Creatinine 1.43 H (0.70-1.30) mg/dL Glucose 149 H (70-105) mg/dL Calcium 9.2 (8.6-10.3) mg/dL Calcium panel 12/29/17 Range/Units 05:59 Calcium 9.2 (8.6-10.3) mg/dL Pituitary panel 12/29/17 Range/Units 05:59 Sodium 134 L (136-145) mEq/L Potassium 4.0 (3.5-5.1) mEq/L Chloride 98 (98-107) mEq/L Carbon Dioxide 27 (23-29) mEq/L BUN 20 (8-23) mg/dL Creatinine 1.43 H (0.70-1.30) mg/dL Glucose 149 H (70-105) mg/dL Calcium 9.2 (8.6-10.3) mg/dL Adrenal panel 12/29/17 Range/Units 05:59 Sodium 134 L (136-145) mEq/L Potassium 4.0 (3.5-5.1) mEq/L Chloride 98 (98-107) mEq/L Carbon Dioxide 27 (23-29) mEq/L BUN 20 (8-23) mg/dL Creatinine 1.43 H (0.70-1.30) mg/dL Glucose 149 H (70-105) mg/dL Calcium 9.2 (8.6-10.3) mg/dL All other labs normal. - Imaging CT scan - abdomen: report reviewed CT scan - pelvis: report reviewed Additional studies: Chest X-Ray 12/23/17 14:32 IMPRESSION: No acute process. D/ / Freddy Tesfaye MD / Freddy Tesfaye MD Interpreting Provider: Freddy Tesfaye MD Echocardiogram 12/23/17 20:26 Impressions: Technically sub-optimal due to poor echocardiographic windows. LVEF 65%. Normal LV chamber size and function. Mild asymmetric hypertrophy of the basal septum. No LVOT obstruction. Mild left ventricular diastolic dysfunction. Right ventricle was not well visualized. Grossly, function appears normal. Unable to estimate RVSP due to lack of TR jet. No obvious significant valvular dysfunction. Left Ventricular Wall Motion: Rest Echo Findings All wall segments showed normal motion. Findings: Study Quality * Technically sub-optimal due to poor echocardiographic windows. ECG Findings * Normal sinus rhythm. Left Ventricle * LVEF 65%. * Normal LV chamber size and function. * Mild asymmetric hypertrophy of the basal septum. No LVOT obstruction. * Mild left ventricular diastolic dysfunction. Right Ventricle * Right ventricle was not well visualized. Grossly, function appears normal. Left Atrium * Mildly dilated left atrium. Right Atrium * Right atrium is not well visualized. Interatrial Septum * Interatrial septum not well evaluated. Aortic Valve * Trileaflet aortic valve. * Mildly sclerotic aortic valve leaflets. * No aortic regurgitation. * No aortic stenosis. Mitral Valve * Normal mitral valve structure and function. * No mitral regurgitation. * No mitral stenosis. Tricuspid Valve * Normal tricuspid valve structure and function. * No tricuspid regurgitation. * Unable to estimate RVSP due to lack of TR jet. Pulmonic Valve * Pulmonic valve not well visualized. * No pulmonic regurgitation. Aorta * Normally sized aortic root. Pericardium * The pericardium appears normal. IVC * The IVC is not well evaluated. Pulmonary Artery * Pulmonary artery not well visualized. Chest CTA 12/25/17 08:19 IMPRESSION: Small right lower lobe pulmonary embolism which has decreased in size. The previously noted right upper lobe pulmonary embolism has resolved. No new embolism is detected. Small right lower lobe infiltrate is identified which likely represents a stable pulmonary infarct. D/ / 12/25/2017 10:02:56 Umair Weinstein MD / [facility] Interpreting Provider: Umair Weinstein MD Abdomen/Pelvis CT 12/27/17 12:39 IMPRESSION: No acute abnormality in the abdomen or pelvis. Gas-filled colon upper limits of normal in size. No bowel obstruction. D/ / Fede Lazo MD / Fede Lazo MD Interpreting Provider: Fede Lazo MD X-Ray 12/28/17 08:31 IMPRESSION: Mild dilation of some small bowel loops within the abdomen, possibly ileus. Small-bowel obstruction is not excluded. D/ / Dory Burgos Cha, MD / Dory Burgos Cha, MD Interpreting Provider: Dory Burgos Cha, MD Chest/Abdomen X-ray 12/28/17 10:52 IMPRESSION: 1. No acute cardiopulmonary disease. 2. Unchanged appearance since earlier today of gaseous distention of the small bowel and colon. The colon is not significantly changed since the CT dated 12/27/2017. Gaseous distention of the small bowel appears new. Ileus is favored over obstruction. D/ /28/2017 12:34:50 Aracelis Sanchez MD / tam Interpreting Provider: Aracelis Sanchez MD Consult Discharge Plan - Plan Referrals: Génesis Valladares DO [Primary Care Provider] - Prescriptions: Rivaroxaban [Xarelto] 1 dose PO AD 30 Days #1 pack - Attending Attestation For this encounter, I have reviewed the FLOCCULATOR OPERATOR or PA documentation, treatment plan, and medical decision making; and I have had face to face time with this patient.
[2017-12-29] MEDS: Milk and Molasses Enema 200 ML RC SCH ×2 (14:26→22:55)
[2017-12-29] MEDS ORDERED: Heparin 25,000 UNIT/500 ML D5W 25,000 UNIT/500 ML BAG IVC SCH (17:14)
--- NOTE | 2017-12-29 17:54 | Electrocardiograph Report ---
[place] [id number] Test Date: 2017-12-29 Pat Name: Geovanni Khalil Department: 111 Room: 2NE28 Gender: M [place] Cutter: MIRNA : 1940 Requested By: Eric Nunez Order Number: [id number] Reading MD: Fede Dodge DO Measurements Intervals [place] Rate: 100 P: ID: 0 QRS: -27 QRSD: 89 T: 26 QT: 338 QTc: 395 Interpretive Statements ATRIAL FLUTTER/TACHYCARDIA WITH RAPID VENTRICULAR RESPONSE BORDERLINE LEFT AXIS DEVIATION INFERIOR MYOCARDIAL INFARCTION, AGE UNDETERMINED NONSPECIFIC ST-T CHANGES Electronically Signed On 12-29-2017 17:52:55 EST by Fede Dodge DO
[2017-12-29] MEDS: *HR* Rivaroxaban 15 MG TABLET PO SCH (21:25)
[2017-12-29] MEDS: Ondansetron 4 MG/2 ML VIAL IVP PRN (23:38)
[2017-12-30] MEDS: dilTIAZem HCl 60 MG TABLET PO SCH ×3 (01:40→15:30)
[2017-12-30] MEDS ORDERED: *HR* LORazepam 2 MG/ML VIAL ONE (02:45)
[2017-12-30] MEDS ORDERED: *HR* LORazepam 2 MG/ML VIAL IVP ONE (02:57)
[2017-12-30] MEDS: Ipratropium/Albuterol Neb 3 ML IH SCH ×5 (03:52→20:24)
--- NOTE | 2017-12-30 04:16 | Event Note ---
<Stefano Sandoval - Last Filed: 12/30/17 04:06> Date of Encounter: 12/30/17 Time of Encounter: 01:48 Called to patient's room by nursing staff to discuss plan of care with patient' s Family. Family upset that patient still has not had a bowel movement despite extensive bowel regimen. Patient's belly is distended, but has active bowel sounds through out and is nontender to palpation. I discussed possible interventions with patient and family including the symptomatic benefits of NG tube. At that time they refused NG tube placement. I added oral Bisacodyl 10mg Q6H and ordered a Fleet enema. Family became more distressed a short while later and expressed desire to transfer to [facility]. Discussed case with Dr. Dunaway who came and saw the patient and talked with the family. After discussion family agreed to NG tube placement and agreed with our plan of NG tube and checking a repeat CT abd. NG tube was placed after several attempts and placed to suction. Patient having feces via NG tube. CT abd performed and read is currently pending. <Sumit Dunaway - Last Filed: 12/30/17 07:05> Date of Encounter: 12/30/17 NG tube placed in.. Talked to Dr. Gaston, he suggested to put NG tube and will see him in the morning
[2017-12-30 07:58] LABS: Hemoglobin 18.2 g/dL (12.9-16.9); Mean Corpuscular HGB Conc 33.7 g/dL (31.6-35.5); Mean Corpuscular Hemoglobin 29.7 pg (28.0-33.3); Mean Corpuscular Volume 88.2 fL (83.0-100.0); Mean Platelet Volume 9.3 fL (9.4-12.4); Monocytes # 0.8 K/mcL (0.0-1.3); Platelet Count 195 K/mcL (140-400); Red Blood Count 6.12 M/mcL (4.19-5.50); Red Cell Distribution Width 13.5 % (11.5-14.5)
--- NOTE | 2017-12-30 08:07 | Event Note ---
Date of Encounter: 12/30/17 Time of Encounter: 08:03 Surgery called by hospitalist regarding difficulty placing NG tube and concern for possible fecalent output. NG noted in place at this time. Dark green/red output noted in container aprox 600 ml. Pt states since NG was placed he feels somewhat better. Family is concerned about progression of care at this point and would like further updates regarding imaging results, lab results, and progression of care. Family notes that yesterday they were considering a transfer to [facility] for second opinion. see progress note for further recommendations.
[2017-12-30 08:48] LABS: BUN/Creatinine Ratio 18 (6-26); Blood Urea Nitrogen 24 mg/dL (8-23); Calcium 9.3 mg/dL (8.6-10.3); Carbon Dioxide 27 mEq/L (23-29); Chloride 97 mEq/L (98-107); Glucose 128 mg/dL (70-105); Osmolality,Calculated 288 (280-300); Sodium 136 mEq/L (136-145); eGFR For African Americans > 60 (> 60); eGFR For Non-African Americans 51 (> 60)
[2017-12-30] MEDS: Insulin LISPRO 300 UNITS/3 ML VIAL SQ SCH ×4 (09:15→20:50)
[2017-12-30] MEDS: *HR* Rivaroxaban 15 MG TABLET PO SCH ×2 (09:29→20:50)
[2017-12-30] MEDS: Sennosides/Docusate Sodium TABLET PO SCH (09:29)
--- NOTE | 2017-12-30 09:40 | Discharge Summary ---
Date of Encounter: 12/30/17 Time of Encounter: 08:45 - Discharge Diagnosis (1) Constipation Status: Acute Qualifiers: Constipation type: slow transit constipation Qualified Code(s): K59.01 - Slow transit constipation (2) Pulmonary embolism and infarction Status: Acute (3) Atrial flutter Status: Acute Qualifiers: Atrial flutter type: unspecified Qualified Code(s): I48.92 - Unspecified atrial flutter (4) DVT (deep venous thrombosis) Status: Acute Qualifiers: DVT location: lower extremity Affected thrombotic vein of extremity: popliteal Chronicity: acute Laterality: right Qualified Code(s): I82.431 - Acute embolism and thrombosis of right popliteal vein (5) Polycythemia Status: Acute (6) Thrombocytopenia Status: Resolved (7) Acute kidney injury Status: Acute (8) Diabetes mellitus Status: Chronic Qualifiers: Diabetes mellitus type: type 2 Diabetes mellitus complication status: with hyperglycemia Diabetes mellitus middle or intermediate school principal insulin use: without middle or intermediate school principal use Qualified Code(s): E11.65 - Type 2 diabetes mellitus with hyperglycemia (9) HTN (hypertension) Status: Chronic Qualifiers: Hypertension type: essential hypertension Qualified Code(s): I10 - Essential (primary) hypertension (10) Dermatitis Status: Chronic - Discharge Medications Prescriptions: Rivaroxaban [Xarelto] 1 dose PO AD 30 Days #1 pack Home Medications: Rivaroxaban [Xarelto] 1 dose PO AD 30 Days #1 pack 12/25/17 [Rx] Allergies/Adverse Reactions: 3 Allergy/AdvReac Type Severity Reaction Status Date / Time acetaminophen [From Percocet] Allergy Rash Verified 12/26/17 02:03 diphenhydramine Allergy Rash Verified 12/25/17 21:16 [From Benadryl] formaldehyde Allergy Rash Verified 12/23/17 14:14 Oxycodone [From Percocet] Allergy Rash Verified 12/26/17 02:03 soybean Allergy Rash Verified 12/23/17 14:14 Procedures/tests Complete & Pending: Procedures Performed prior 72 hours Category Date Time Status CT abd pelvis wo no iv no oral [CT] Routine Cat Scan 12/27/17 12:[address] abd pelvis wo no iv no oral [CT] Stat Cat Scan 12/30/17 02:14 Completed EKG [ECG 12 lead ECG] [ECG] Stat Y 12/29/17 12:25 Completed Date of admission: 12/23/17 18:27 Primary care physician: Génesis Valladares Consults: 12/24/17 18:48 Consult to Respiratory Therapy [CONS] Routine Reason for Consult: Overnight Pulse oxymetry for suspected CHASIDY Call Completed: No 12/28/17 10:52 Consult to Surgery [CONS] Routine Consulting Provider: Surgery [facility] Reason for Consult: Possible SBO Time Notified: 10:45 Call Completed: Yes - Patient Status Disposition: Transfer Short-Term Hosp Condition: Good Functional capacity at discharge: independent ambulation Overall status at discharge: patient is not back to baseline - Discharge Instructions Follow Up With: Génesis Valladares DO [Primary Care Provider] - Hospital course: Mr. Khlail is a 77 year old male admitted - Time Spent with Patient Total time spent providing and/or coordinating discharge services: Greater than 30 minutes (45mins) - Constitutional Vitals: Temp Pulse Resp BP Pulse Ox 98.2 F 100 15 134/100 97 12/30/17 06:42 12/30/17 06:42 12/30/17 06:42 12/30/17 06:42 12/30/17 06:42 General appearance: Present: cooperative, A&O X 3, pleasant, answers questions appropriately - Head Head exam: Present: atraumatic, normocephalic - Eye Eye exam: Present: conjunctival injection, EOMI - ENT ENT exam: Present: mucous membranes moist - Neck Neck exam general surgery: Present: full ROM - Respiratory Respiratory exam: Present: CTAB - Cardiovascular Cardiovascular exam: Present: RRR. Absent: diastolic murmur, systolic murmur - GI/Abdominal GI/Abdominal exam: Present: distended, hyperactive bowel sounds. Absent: guarding, tenderness - Extremities Exam Extremities exam: Present: warm. Absent: tenderness - Neurological Exam Neurological exam: Present: alert, oriented X3 - Skin Skin exam: Present: dry, erythema, rash, warm
--- NOTE | 2017-12-30 09:48 | General Surgery Progress Note ---
Date of Encounter: 12/30/17 Time of Encounter: 09:00 - Assessment and Plan (1) Ileus Current Visit: Yes Status: Acute NPO except ice chips and medications Start reglan 10mg IV every 6 hours Supportive measures Serial abdominal exams No surgical intervention indicated at this time Patient's family requesting transfer to [facility] for further work-up (2) Constipation Current Visit: Yes Status: Acute NPO except ice chips and medications Milk and Molasses enemas X 2 yesterday (2 bowel movements) Miralax and Gatorade bowel prep- patient vomited with drinking prep and NG tube inserted and placed to LIWS Continue stool softners BID Supportive measures Serial abdominal exams No surgical intervention indicated at this time Patient's family requesting transfer to [facility] for further work-up Qualifiers: Constipation type: slow transit constipation Qualified Code(s): K59.01 - Slow transit constipation (3) Pulmonary embolism and infarction Current Visit: Yes Status: Acute Management per primary medicine service (4) Atrial flutter Current Visit: Yes Status: Acute Management per primary medicine service Qualifiers: Atrial flutter type: unspecified Qualified Code(s): I48.92 - Unspecified atrial flutter (5) DVT (deep venous thrombosis) Current Visit: Yes Status: Acute Management per primary medicine service Qualifiers: DVT location: lower extremity Affected thrombotic vein of extremity: popliteal Chronicity: acute Laterality: right Qualified Code(s): I82.431 - Acute embolism and thrombosis of right popliteal vein (6) Diabetes mellitus Current Visit: Yes Status: Chronic Management per primary medicine service Qualifiers: Diabetes mellitus type: type 2 Diabetes mellitus complication status: with hyperglycemia Diabetes mellitus [facility] insulin use: without terminal gauger use Qualified Code(s): E11.65 - Type 2 diabetes mellitus with hyperglycemia (7) HTN (hypertension) Current Visit: Yes Status: Chronic Management per primary medicine service Qualifiers: Hypertension type: essential hypertension Qualified Code(s): I10 - Essential (primary) hypertension Subjective Patient reports: voiding w/o difficulty, flatus, bowel movement (2 bowel movements after milk and molasses enemas), nausea, vomiting (last evening, NG tube inserted and placed to LIWS (500ml of total drainage noted)), afebrile Objective Vital Signs - Last 8 Hours Temp Pulse Resp BP Pulse Ox 12/30/17 06:42 98.2 F 100 15 134/100 97 12/30/17 05:00 97.8 F 103 20 165/106 90 Intake and Output 12/29/17 12/30/17 12/30/17 23:59 07:59 15:59 Intake Total 0 / 0 0 / 0 Output Total 500 / 500 Balance 0 / 0 -500 / -500 0 / 0 Intake: Oral 0 / 0 0 / 0 Output: Gastric Drainage 500 / 500 Other: Meal Dinner Breakfast Percent of Meal Consumed 0% 0% Stool Size Moderate Stool Consistency liquid Stool Color Brown # Voids 1 # Bowel Movements 1 Blood Glucose* 283 117 - General physical appearance well developed, well nourished, moderate distress, obese - Eyes PERRL, normal ocular movement - ENT normal mucosa, atraumatic, normocephalic - Neck Neck exam: trachea midline - Respiratory normal respiratory effort, clear to auscultation, other (diminished bibasilar bases) - Cardiovascular Cardiovascular exam: Present: tachycardia - Abdomen Abdomen: Present: bowel sounds present, soft, non tender, tympanic, distended, wound (NG tube to LIWS with 500ml of gastric content noted) - Neurologic CN 2-12 grossly intact - Psychiatric oriented to time, oriented to person, oriented to place, speech is normal, memory intact - Labs 12/30/17 06:37 12/30/17 06:37 Diabetes panel 12/30/17 Range/Units 06:37 Sodium 136 (136-145) mEq/L Potassium 4.0 (3.5-5.1) mEq/L Chloride 97 L (98-107) mEq/L Carbon Dioxide 27 (23-29) mEq/L BUN 24 H (8-23) mg/dL Creatinine 1.37 H (0.70-1.30) mg/dL Glucose 128 H (70-105) mg/dL Calcium 9.3 (8.6-10.3) mg/dL Calcium panel 12/30/17 Range/Units 06:37 Calcium 9.3 (8.6-10.3) mg/dL Pituitary panel 12/30/17 Range/Units 06:37 Sodium 136 (136-145) mEq/L Potassium 4.0 (3.5-5.1) mEq/L Chloride 97 L (98-107) mEq/L Carbon Dioxide 27 (23-29) mEq/L BUN 24 H (8-23) mg/dL Creatinine 1.37 H (0.70-1.30) mg/dL Glucose 128 H (70-105) mg/dL Calcium 9.3 (8.6-10.3) mg/dL Adrenal panel 12/30/17 Range/Units 06:37 Sodium 136 (136-145) mEq/L Potassium 4.0 (3.5-5.1) mEq/L Chloride 97 L (98-107) mEq/L Carbon Dioxide 27 (23-29) mEq/L BUN 24 H (8-23) mg/dL Creatinine 1.37 H (0.70-1.30) mg/dL Glucose 128 H (70-105) mg/dL Calcium 9.3 (8.6-10.3) mg/dL - Imaging Additional Studies: Chest X-Ray 12/23/17 14:32 IMPRESSION: No acute process. D/ / Freddy Tesfaye MD / Freddy Tesfaye MD Interpreting Provider: Freddy Tesfaye MD Echocardiogram 12/23/17 20:26 Impressions: Technically sub-optimal due to poor echocardiographic windows. LVEF 65%. Normal LV chamber size and function. Mild asymmetric hypertrophy of the basal septum. No LVOT obstruction. Mild left ventricular diastolic dysfunction. Right ventricle was not well visualized. Grossly, function appears normal. Unable to estimate RVSP due to lack of TR jet. No obvious significant valvular dysfunction. Left Ventricular Wall Motion: Rest Echo Findings All wall segments showed normal motion. Findings: Study Quality * Technically sub-optimal due to poor echocardiographic windows. ECG Findings * Normal sinus rhythm. Left Ventricle * LVEF 65%. * Normal LV chamber size and function. * Mild asymmetric hypertrophy of the basal septum. No LVOT obstruction. * Mild left ventricular diastolic dysfunction. Right Ventricle * Right ventricle was not well visualized. Grossly, function appears normal. Left Atrium * Mildly dilated left atrium. Right Atrium * Right atrium is not well visualized. Interatrial Septum * Interatrial septum not well evaluated. Aortic Valve * Trileaflet aortic valve. * Mildly sclerotic aortic valve leaflets. * No aortic regurgitation. * No aortic stenosis. Mitral Valve * Normal mitral valve structure and function. * No mitral regurgitation. * No mitral stenosis. Tricuspid Valve * Normal tricuspid valve structure and function. * No tricuspid regurgitation. * Unable to estimate RVSP due to lack of TR jet. Pulmonic Valve * Pulmonic valve not well visualized. * No pulmonic regurgitation. Aorta * Normally sized aortic root. Pericardium * The pericardium appears normal. IVC * The IVC is not well evaluated. Pulmonary Artery * Pulmonary artery not well visualized. Chest CTA 12/25/17 08:19 IMPRESSION: Small right lower lobe pulmonary embolism which has decreased in size. The previously noted right upper lobe pulmonary embolism has resolved. No new embolism is detected. Small right lower lobe infiltrate is identified which likely represents a stable pulmonary infarct. D/ / 12/25/2017 10:02:56 Umair Weinstein MD / giorgio Interpreting Provider: Umair Weinstein MD X-Ray 12/28/17 08:31 IMPRESSION: Mild dilation of some small bowel loops within the abdomen, possibly ileus. Small-bowel obstruction is not excluded. D/ / Dory Burgos Cha, MD / Dory Burgos Cha, MD Interpreting Provider: Dory Burgos Cha, MD Chest/Abdomen X-ray 12/28/17 10:52 IMPRESSION: 1. No acute cardiopulmonary disease. 2. Unchanged appearance since earlier today of gaseous distention of the small bowel and colon. The colon is not significantly changed since the CT dated 12/27/2017. Gaseous distention of the small bowel appears new. Ileus is favored over obstruction. D/ / 12/28/2017 12:34:50 Aracelis Sanchez MD / tam Interpreting Provider: Aracelis Sanchez MD Abdomen/Pelvis CT 12/30/17 02:14 IMPRESSION: Colonic air-fluid levels consistent with diarrheal illness. No bowel obstruction. Evolving pulmonary infarct at the right lung base. D/ / Wilbur Hicks / Wilbur Hicks Interpreting Provider: Wilbur Hicks Abdomen X-Ray 12/30/17 08:10 IMPRESSION: 1. The nasogastric tube is within the proximal stomach. Further advancement is recommended prior to use. 2. Air-filled, dilated large and small bowel, similar to the recent CT. D/ / Ritesh Fan MD / Ritesh Fan MD Interpreting Provider: Ritesh Fan MD Consult Discharge Plan - Plan Referrals: Génesis Valladares DO [Primary Care Provider] - Prescriptions: Rivaroxaban [Xarelto] 1 dose PO AD 30 Days #1 pack - Attending Attestation For this encounter, I have reviewed the HOT DIPPER or PA documentation, treatment plan, and medical decision making; and I have had face to face time with this patient.
[2017-12-30 09:57] LABS: Eosinophils # 0.2 K/mcL (0.0-0.6); Lymphocytes # 1.4 K/mcL (0.6-4.6); Neutrophils # 5.3 K/mcL (1.6-8.9)
[2017-12-30 09:58] LABS: Platelet Estimate Normal (Normal)
--- NOTE | 2017-12-30 10:31 | Internal Med Progress Note ---
<Andre Che - Last Filed: 12/30/17 10:25> Date of Encounter: 12/30/17 Time of Encounter: 08:45 - Assessment and plan (1) Constipation Current Visit: Yes Status: Acute Assessment and plan: Evaluated by surgery, started on bowel prep regimen of milk and molasses enema, miralax, gatorade yesterday. Passed a small formed BM last night, had discomfort overnight and NG was place to wall suction. Approx 500ml of gastric drainage noted. Patient requested [facility] transfer, was accepted, however after passing large stool is now requesting to stay at [facility]. Appreciate surgery's continued evaluations and recommendations. Will continue to monitor output, consider NG removal. Likely to advance diet as tolerated. Qualifiers: Constipation type: slow transit constipation Qualified Code(s): K59.01 - Slow transit constipation (2) Pulmonary embolism and infarction Current Visit: Yes Status: Acute Assessment and plan: - Pulmonary embolism was demonstrated on CTA in emergency Department -Demonstrated right-sided PE with lateral right lower lobe infarction. - Echocardiogram showing ejection fraction of 65% with mild diastolic dysfunction. Grossly normal function of right ventricle. - Venous Doppler showed positive DVT in right lower extremity and popliteal and posterior tibial vein - Etiology unclear at this time, however suspect inactivity as most likely cause Plan - Continue Xarelto (3) Atrial flutter Current Visit: Yes Status: Acute Assessment and plan: Did not tolerate long acting cardizem, continuing onshort acting medication. Currently in Atrial flutter, rate controlled in 90s. Discussed with Cardiology, recommended TSH and echo-which patient has had and were essentially normal. Recommending outpatient cardio follow up. Qualifiers: Atrial flutter type: unspecified Qualified Code(s): I48.92 - Unspecified atrial flutter (4) DVT (deep venous thrombosis) Current Visit: Yes Status: Acute Assessment and plan: Continue Xarelto Qualifiers: DVT location: lower extremity Affected thrombotic vein of extremity: popliteal Chronicity: acute Laterality: right Qualified Code(s): I82.431 - Acute embolism and thrombosis of right popliteal vein (5) Polycythemia Current Visit: Yes Status: Acute Assessment and plan: - H&H most recently of 18.2/54 - Platelets low at 195 and WBC of 7.5 - Possibly reactive secondary to PE vs Asthma vs undiagnosed sleep apnea -Iron studies demonstrating mild iron deficiency anemia. Plan - Continue to monitor and treat underlying issues as they are discovered. - Will likely need to follow up as outpatient with PCP and possibly hematology (6) Thrombocytopenia Current Visit: Yes Status: Resolved Assessment and plan: - Has been improving. - Will monitor with anticoagulation. -Monitor NG output closely (7) Acute kidney injury Current Visit: Yes Status: Acute Assessment and plan: - BUNs/creatinine of 24/1.37. - Previously was improving with gentle hydration. - We will continue to monitor and avoid nephrotoxic agents. -Possibly secondary to abdominal compartment syndrome. -Patient had BM today, hope to increase oral hydration with GI improvement. (8) Diabetes mellitus Current Visit: Yes Status: Chronic Assessment and plan: - Type 2 diabetes mellitus - Patient has been poorly compliant with medications due to fear of allergy - Continue insulin coverage as ordered Qualifiers: Diabetes mellitus type: type 2 Diabetes mellitus complication status: with hyperglycemia Diabetes mellitus [facility] insulin use: without terminal press operator use Qualified Code(s): E11.65 - Type 2 diabetes mellitus with hyperglycemia (9) HTN (hypertension) Current Visit: Yes Status: Chronic Assessment and plan: - Carefully monitor for increased clot burden and transition to massive pulmonary embolism. 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 - Pt is noticeably red covering a large portion of his body. No complaints of itching, skin sloughing, pain. Patient states this is chronic Plan - Continue home meds. Follow up as outpatient - Avoid allergies. - Have requested records from revenue research analyst at [facility], Dr. Jonas - Time Spent With Patient 25 - 35 minutes - Subjective Interval history: Patient and family initially requesting transfer to [facility], transfer center called and patient accepted. Patient then had large, loose BM; now requesting transfer be cancelled. Patient maintains NG tube to wall suction. Afebrile, continues in Atrial flutter. - Constitutional Vitals: Temp Pulse Resp BP Pulse Ox 98.2 F 100 15 134/100 97 12/30/17 06:42 12/30/17 06:42 12/30/17 06:42 12/30/17 06:42 12/30/17 06:42 General appearance: Present: cooperative, A&O X 3, pleasant, answers questions appropriately - Head Head exam: Present: atraumatic, normocephalic - Eye Eye exam: Present: conjunctival injection, EOMI - Neck Neck exam general surgery: Present: supple, trachea midline. Absent: lymphadenopathy - Respiratory Respiratory exam: Present: CTAB. Absent: accessory muscle use, rales, rhonchi, wheezes - Cardiovascular Cardiovascular exam: Present: irregular rhythm. Absent: diastolic murmur, gallop, rubs, systolic murmur - GI/Abdominal GI/Abdominal exam: Present: distended, hyperactive bowel sounds, no peritoneal signs. Absent: guarding, tenderness - Extremities Exam Extremities exam: Present: warm, radial pulses palpable and symmetrical. Absent : calf tenderness, cyanotic, pedal edema - Neurological Exam Neurological exam: Present: alert, oriented X3, no focal deficits, pronater drift. Absent: facial droop, speech deficit - Skin Skin exam: Present: dry, erythema, intact, rash, warm Internal Medicine: Result - Labs CBC & Chem 7: 12/30/17 06:37 12/30/17 06:37 Labs: Short CBC 12/30/17 Range/Units 06:37 WBC 7.5 (4.3-11.1) K/mcL Hgb 18.2 H (12.9-16.9) g/dL Hct 54.0 H (37.5-50.1) % Plt Count 195 (140-400) K/mcL Neutrophils # 5.3 (1.6-8.9) K/mcL BMP 12/30/17 06:37 Sodium 136 Potassium 4.0 Chloride 97 L Carbon Dioxide 27 BUN 24 H Creatinine 1.37 H Glucose 128 H Calcium 9.3 - ABG Interpretation ABG results: PT/INR, D-dimer PT 13.5 Seconds (9.4-12.1) H 12/24/17 00:24 - Impressions Impressions Abdomen/Pelvis CT 12/30/17 02:14 IMPRESSION: Colonic air-fluid levels consistent with diarrheal illness. No bowel obstruction. Evolving pulmonary infarct at the right lung base. D/ / Wilbur Hicks / Wilbur Hicks Interpreting Provider: Wilbur Hicks Abdomen X-Ray 12/30/17 08:10 IMPRESSION: 1. The nasogastric tube is within the proximal stomach. Further advancement is recommended prior to use. 2. Air-filled, dilated large and small bowel, similar to the recent CT. D/ / Ritesh Fan MD / Ritesh Fan MD Interpreting Provider: Ritesh Fan MD Consult Discharge Plan - Plan Referrals: Génesis Valladares DO [Primary Care Provider] - Prescriptions: Rivaroxaban [Xarelto] 1 dose PO AD 30 Days #1 pack <OtfPhuHersonHarish de leon Allison - Last Filed: 12/30/17 11:07> Date of Encounter: 12/30/17 - Constitutional Vitals: Temp Pulse Resp BP Pulse Ox 98.2 F 100 15 134/100 97 12/30/17 06:42 12/30/17 06:42 12/30/17 06:42 12/30/17 06:42 12/30/17 06:42 Internal Medicine: Result - Labs CBC & Chem 7: 12/30/17 06:37 12/30/17 06:37 Labs: Short CBC 12/30/17 Range/Units 06:37 WBC 7.5 (4.3-11.1) K/mcL Hgb 18.2 H (12.9-16.9) g/dL Hct 54.0 H (37.5-50.1) % Plt Count 195 (140-400) K/mcL Neutrophils # 5.3 (1.6-8.9) K/mcL BMP 12/30/17 06:37 Sodium 136 Potassium 4.0 Chloride 97 L Carbon Dioxide 27 BUN 24 H Creatinine 1.37 H Glucose 128 H Calcium 9.3 - ABG Interpretation ABG results: PT/INR, D-dimer PT 13.5 Seconds (9.4-12.1) H 12/24/17 00:24 - Impressions Impressions Abdomen/Pelvis CT 12/30/17 02:14 IMPRESSION: Colonic air-fluid levels consistent with diarrheal illness. No bowel obstruction. Evolving pulmonary infarct at the right lung base. D/ / Wilbur Hicks / Wilbur Hicks Interpreting Provider: Wilbur Hicks Abdomen X-Ray 12/30/17 08:10 IMPRESSION: 1. The nasogastric tube is within the proximal stomach. Further advancement is recommended prior to use. 2. Air-filled, dilated large and small bowel, similar to the recent CT. D/ / Ritesh Fan MD / Ritesh Fan MD Interpreting Provider: Ritesh Fan MD - Attending Attestation cancel transfer. May resume diet when possible. I examined this patient and my medical decision-making was reviewed with the Resident Physician. I agree with the documented findings, disposition and treatment plan as described except to the extent set forth below.
[2017-12-30] MEDS: Metoclopramide 10 MG/2 ML VIAL IVP SCH ×2 (12:10→18:10)
[2017-12-30] MEDS: 0.9 % Sodium Chloride 1,000 ML IVC SCH (18:10)
[2017-12-31] MEDS: Ipratropium/Albuterol Neb 3 ML IH SCH ×6 (00:06→19:30)
[2017-12-31] MEDS: Metoclopramide 10 MG/2 ML VIAL IVP SCH ×5 (00:26→22:18)
[2017-12-31] MEDS: dilTIAZem HCl 60 MG TABLET PO SCH ×4 (00:26→22:18)
[2017-12-31] MEDS: 0.9 % Sodium Chloride 1,000 ML IVC SCH ×4 (00:26→22:42)
--- NOTE | 2017-12-31 08:42 | General Surgery Progress Note ---
<VikjoshCharley polk - Last Filed: 12/31/17 10:26> Date of Encounter: 12/31/17 Time of Encounter: 08:40 - Assessment and Plan (1) Ileus Status: Acute Patient's bowel sounds consistent with ileus in the colon. Patient with sustained output through the NG tube. Patient is distended and appears very uncomfortable. 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 -Continue docusate, bisacodyl, senna, and Reglan. -Consult to gastroenterology. (2) Constipation Status: Acute Patient with bowel movements after milk molasses enemas. -Consult gastroenterology as per above. Qualifiers: Constipation type: slow transit constipation Qualified Code(s): K59.01 - Slow transit constipation (3) Pulmonary embolism and infarction Status: Acute Continue management per primary team. Subjective Patient reports: no flatus (Minimal bowel sounds. Patient complaining of abdominal discomfort and distention. Had 2 bowel movements on Friday. Small bowel movement yesterday.), bowel movement (Patient with small amounts of liquid stool.), afebrile (Patient with sustained output from the NG tube. Approximately 350 mils out yesterday.) Objective Vital Signs - Last 8 Hours Temp Pulse Resp BP Pulse Ox 12/31/17 07:04 97.7 F 70 14 146/97 92 12/31/17 05:12 98.5 F 96 16 150/92 91 Intake and Output 12/30/17 12/31/17 12/31/17 23:59 07:59 15:59 Intake Total 0 / 0 1000 / 1000 Output Total 400 / 400 350 / 350 Balance -400 / -400 650 / 650 Intake: IV Fluids 1000 / 1000 0.9 % Sodium Chloride 1,000 ML 1000 / 1000 @ 125 mls/hr IVC .Q8H MERLYN Rx#: [id number] Oral 0 / 0 0 / 0 Output: Gastric Drainage 400 / 400 350 / 350 Other: Meal Dinner Percent of Meal Consumed 0% Stool Size Small Stool Consistency liquid # Voids 0 0 # Bowel Movements 1 Blood Glucose* 121 127 - General physical appearance well developed, well nourished, moderate distress - Eyes PERRL, normal ocular movement - Respiratory normal expansion, clear to auscultation - Cardiovascular Cardiovascular exam: Present: RRR, no murmurs/rubs/gallops - Abdomen Abdomen: Present: bowel sounds present (Bowel sounds are tympanitic in nature.) , soft, non tender, distended. Absent: guarding, rebound, rigid Hernia: none - Neurologic CN 2-12 grossly intact, normal coordination, normal sensation - Psychiatric oriented to time, oriented to person, oriented to place, speech is normal, memory intact - Labs 12/31/17 09:27 12/31/17 09:27 Diabetes panel 12/30/17 Range/Units 06:37 Sodium 136 (136-145) mEq/L Potassium 4.0 (3.5-5.1) mEq/L Chloride 97 L (98-107) mEq/L Carbon Dioxide 27 (23-29) mEq/L BUN 24 H (8-23) mg/dL Creatinine 1.37 H (0.70-1.30) mg/dL Glucose 128 H (70-105) mg/dL Calcium 9.3 (8.6-10.3) mg/dL Calcium panel 12/30/17 Range/Units 06:37 Calcium 9.3 (8.6-10.3) mg/dL Pituitary panel 12/30/17 Range/Units 06:37 Sodium 136 (136-145) mEq/L Potassium 4.0 (3.5-5.1) mEq/L Chloride 97 L (98-107) mEq/L Carbon Dioxide 27 (23-29) mEq/L BUN 24 H (8-23) mg/dL Creatinine 1.37 H (0.70-1.30) mg/dL Glucose 128 H (70-105) mg/dL Calcium 9.3 (8.6-10.3) mg/dL Adrenal panel 12/30/17 Range/Units 06:37 Sodium 136 (136-145) mEq/L Potassium 4.0 (3.5-5.1) mEq/L Chloride 97 L (98-107) mEq/L Carbon Dioxide 27 (23-29) mEq/L BUN 24 H (8-23) mg/dL Creatinine 1.37 H (0.70-1.30) mg/dL Glucose 128 H (70-105) mg/dL Calcium 9.3 (8.6-10.3) mg/dL Consult Discharge Plan - Plan Instructions: Rivaroxaban (By mouth), Atrial Flutter (DC), Chest Pain (DC), Deep Venous Thrombosis (DC), Deep Venous Thrombosis (GEN), Diabetes Mellitus Type 2 in Adults (DC), Chronic Hypertension (DC), Ileus (DC), Ileus (GEN), Constipation, Gis Professor (GEN) Additional Instructions: Discharge Instructions: Continue taking blood thinner (Xarelto) twice daily for the initial 21 days. This means that you will switch to only taking your Xarelto once daily beginning January 19, 2018. Xarelto previously sent to [facility], if discharged over the weekend this prescription will likely need to be printed or sent to another pharmacy. 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 Please let us know if you have any questions about your medications or there instructions. Follow-up appointments: Follow up with Cardiology as outpatient for new onset Atrial Flutter. Follow up next week with you Primary Care provider. Medication List: Carry an up to date list of medications you are taking at all time. We have given you an updated medication list including any new medications that you have been prescribed. Please provide that list to your primary provider Symptoms: If your condition changes or you experience any of the following symptoms, notify your physician immediately: Unusual or worsening pain, fever, persistent nausea and vomiting, bleeding, increase in swelling (especially in your legs), sudden weight gain, extreme dizziness, chest pain, increased drainage or redness from a wound or incision. Go to the emergency department if you experience a problem with breathing. Weights: If you have a history of swelling or shortness of breath, weigh yourself daily and notify your physician if you have a weight gain of two or more pounds in one day or 5 or more pounds in a week. If you experience any of the warning signs for stroke: Sudden numbness or weakness of the face, arm or leg; especially on one side of the body, sudden confusion, trouble speaking or understanding, sudden trouble seeing in one or both eyes, sudden trouble walking, dizziness, loss of balance or coordination, sudden sever headache with no cause; Call 911 or go to the emergency room. Stroke is a medical emergency. Some risk factors for stroke: Age, cigarette smoking, diabetes, excessive alcohol consumption, family history , high blood pressure, overweight, physical inactivity, prior stroke, heart attack, diagnosis of carotid artery stenosis or other artery disease. If you smoke, STOP: Smoking or tobacco use significantly increases your risk of heart and lung disease. Your chance of disease greatly increases if you continue to smoke. For more information, call the [place] tobacco quit line for smoking cessation QUIT-NOW ( ) Referrals: [facility] [Provider Group] Génesis Valladares DO [Primary Care Provider] - 01/12/18 2:00 pm Prescriptions: dilTIAZem HCl [Cardizem] 60 mg PO Q8HR #90 tablet Lactulose 20 gm PO DAILY PRN 30 Days solution PRN Reason: constipation Rivaroxaban [Xarelto] 1 dose PO AD 30 Days #1 pack Sennosides/Docusate Sodium [Senna Plus] 1 each PO DAILY #30 tablet <Milton Gaston - Last Filed: 01/05/18 08:38> Date of Encounter: 12/31/17 Objective - Labs 01/02/18 03:43 01/02/18 03:43 - Attending Attestation I examined this patient and my medical decision-making was reviewed with the Resident Physician. I agree with the documented findings, disposition and treatment plan as described except to the extent set forth below. The patient is seen and evaluated on morning rounds with the resident. He continues to struggle with colon dilatation and colon motility dysfunction. We will work closely with gastroenterology and observe for any surgical complications. Milton Gaston MD FACS
[2017-12-31 09:57] LABS: Hematocrit 54.6 % (37.5-50.1); Hemoglobin 17.8 g/dL (12.9-16.9); Mean Corpuscular HGB Conc 32.6 g/dL (31.6-35.5); Mean Corpuscular Hemoglobin 29.5 pg (28.0-33.3); Mean Corpuscular Volume 90.5 fL (83.0-100.0); Mean Platelet Volume 9.2 fL (9.4-12.4); Platelet Count 242 K/mcL (140-400); Red Blood Count 6.03 M/mcL (4.19-5.50); Red Cell Distribution Width 13.2 % (11.5-14.5)
[2017-12-31] MEDS: *HR* Rivaroxaban 15 MG TABLET PO SCH ×2 (10:00→22:18)
[2017-12-31] MEDS: Insulin LISPRO 300 UNITS/3 ML VIAL SQ SCH ×4 (10:01→22:19)
[2017-12-31] MEDS: Sennosides/Docusate Sodium TABLET PO SCH (10:03)
[2017-12-31 10:04] LABS: Calcium 8.9 mg/dL (8.6-10.3); Potassium 3.9 mEq/L (3.5-5.1)
--- NOTE | 2017-12-31 10:46 | Internal Med Progress Note ---
<TomYordy - Last Filed: 12/31/17 10:43> Date of Encounter: 12/31/17 Time of Encounter: 10:43 - Assessment and plan (1) Pulmonary embolism and infarction Current Visit: Yes Status: Acute Assessment and plan: Pulmonary embolism was demonstrated on CTA Demonstrated right-sided PE with lateral right lower lobe infarction. Echocardiogram showing ejection fraction of 65% with mild diastolic dysfunction. Grossly normal function of right ventricle. Venous Doppler showed positive DVT in right lower extremity and popliteal and posterior tibial vein Continue Xarelto (2) Constipation Current Visit: Yes Status: Acute Assessment and plan: Patient had two bowel movements today with improved symptoms NG tube still in place Followed by surgery, Per recommendations we will continue docusate, bisacodyl, senna, and Reglan. GI has been consulted Qualifiers: Constipation type: slow transit constipation Qualified Code(s): K59.01 - Slow transit constipation (3) Acute kidney injury Current Visit: Yes Status: Acute Assessment and plan: Creatinine of 1.65. Patient has a decrease in his GFR to 41. We will continue to monitor and avoid nephrotoxic agents. (4) Atrial flutter Current Visit: Yes Status: Acute Assessment and plan: Patient is currently rate controlled. 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 Follow up as outpatient Avoid allergies. (7) Diabetes mellitus Current Visit: Yes Status: Chronic Assessment and plan: Type 2 diabetes mellitus Insulin has been ordered Qualifiers: Diabetes mellitus type: type 2 Diabetes mellitus complication status: with hyperglycemia Diabetes mellitus prison insulin use: without manager long term care use Qualified Code(s): E11.65 - Type 2 diabetes mellitus with hyperglycemia (8) HTN (hypertension) Current Visit: Yes Status: Chronic Assessment and plan: Currently hemodynamically stable Continue Home medications Qualifiers: Hypertension type: essential hypertension Qualified Code(s): I10 - Essential (primary) hypertension (9) Thrombocytopenia Current Visit: Yes Status: Resolved Assessment and plan: Continues to improve Will recheck in the morning - Subjective Interval history: Patient states that he is feeling better today. Patient and family states that he had 2 bowel movements this morning that were significant in size around 0830. States that after having the bowel movement he feels much better. Just states that he has been able to urinate more today. Patient is denying any chest pain and states that his breathing is doing well. The states that he has had a mild cough. Patient still feels that his abdomen is somewhat distended. - Constitutional Vitals: Temp Pulse Resp BP Pulse Ox 97.7 F 70 14 146/97 92 12/31/17 07:04 12/31/17 07:04 12/31/17 07:04 12/31/17 07:04 12/31/17 07:04 General appearance: Present: cooperative, A&O X 3, pleasant, answers questions appropriately - Head Head exam: Present: atraumatic, normocephalic - ENT Additional comments: NG tube in place - Neck Neck exam general surgery: Present: full ROM, normal inspection, trachea midline - Respiratory Respiratory exam: Present: CTAB. Absent: accessory muscle use, rales, rhonchi, wheezes - Cardiovascular Cardiovascular exam: Present: irregular rhythm, +S1, +S2. Absent: diastolic murmur, gallop, rubs, systolic murmur - GI/Abdominal GI/Abdominal exam: Present: diminished bowel sounds, distended. Absent: tenderness, no peritoneal signs - Extremities Exam Extremities exam: Present: pedal edema (1+ pitting edema bilateral lower extremities) - Neurological Exam Neurological exam: Present: alert, oriented X3, no focal deficits. Absent: facial droop, speech deficit - Skin Skin exam: Present: dry, warm Additional comments: Appears to have flaking of the skin Internal Medicine: Result - Labs CBC & Chem 7: 12/31/17 09:27 12/31/17 09:27 Labs: Short CBC 12/31/17 Range/Units 09:27 WBC 12.6 H D (4.3-11.1) K/mcL Hgb 17.8 H (12.9-16.9) g/dL Hct 54.6 H (37.5-50.1) % Plt Count 242 (140-400) K/mcL BMP 12/31/17 09:27 Sodium 141 Potassium 3.9 Chloride 99 Carbon Dioxide 27 BUN 31 H Creatinine 1.65 H Glucose 159 H Calcium 8.9 - ABG Interpretation ABG results: PT/INR, D-dimer PT 13.5 Seconds (9.4-12.1) H 12/24/17 00:24 - Impressions Impressions Abdomen X-Ray 12/31/17 07:00 IMPRESSION: No significant change diffuse colonic dilation most likely due to ileus. No findings of small bowel obstruction. D/ / Justin Swenson MD / Justin Swenson MD Interpreting Provider: Justin Swenson MD Consult Discharge Plan - Plan Instructions: Rivaroxaban (By mouth), Atrial Flutter (DC), Chest Pain (DC), Deep Venous Thrombosis (DC), Deep Venous Thrombosis (GEN), Diabetes Mellitus Type 2 in Adults (DC), Chronic Hypertension (DC), Ileus (DC), Ileus (GEN), Constipation, Chronic Condition Nurse (GEN) Additional Instructions: Follow-up appointments: If there is not an appointment listed below, please call your physician and schedule a follow-up appointment. If you have congestive heart failure and your symptoms return, make an appointment with your physician. Medication List: Carry an up to date list of medications you are taking at all time. We have given you an updated medication list including any new medications that you have been prescribed. Please provide that list to your primary provider Symptoms: If your condition changes or you experience any of the following symptoms, notify your physician immediately: Unusual or worsening pain, fever, persistent nausea and vomiting, bleeding, increase in swelling (especially in your legs), sudden weight gain, extreme dizziness, chest pain, increased drainage or redness from a wound or incision. Go to the emergency department if you experience a problem with breathing. Weights: If you have a history of swelling or shortness of breath, weigh yourself daily and notify your physician if you have a weight gain of two or more pounds in one day or 5 or more pounds in a week. If you experience any of the warning signs for stroke: Sudden numbness or weakness of the face, arm or leg; especially on one side of the body, sudden confusion, trouble speaking or understanding, sudden trouble seeing in one or both eyes, sudden trouble walking, dizziness, loss of balance or coordination, sudden sever headache with no cause; Call 911 or go to the emergency room. Stroke is a medical emergency. Some risk factors for stroke: Age, cigarette smoking, diabetes, excessive alcohol consumption, family history , high blood pressure, overweight, physical inactivity, prior stroke, heart attack, diagnosis of carotid artery stenosis or other artery disease. If you smoke, STOP: Smoking or tobacco use significantly increases your risk of heart and lung disease. Your chance of disease greatly increases if you continue to smoke. For more information, call the [place] quit line for smoking cessation 6-222- QUIT-NOW ( ) Referrals: Génesis Valladares DO [Primary Care Provider] - 01/12/18 2:00 pm Prescriptions: Rivaroxaban [Xarelto] 1 dose PO AD 30 Days #1 pack <Harish Harden H - Last Filed: 12/31/17 11:41> Date of Encounter: 12/31/17 - Constitutional Vitals: Temp Pulse Resp BP Pulse Ox 97.7 F 97 14 148/105 92 12/31/17 07:04 12/31/17 11:12 12/31/17 07:04 12/31/17 11:12 12/31/17 07:04 Internal Medicine: Result - Labs CBC & Chem 7: 12/31/17 09:27 12/31/17 09:27 Labs: Short CBC 12/31/17 Range/Units 09:27 WBC 12.6 H D (4.3-11.1) K/mcL Hgb 17.8 H (12.9-16.9) g/dL Hct 54.6 H (37.5-50.1) % Plt Count 242 (140-400) K/mcL Neutrophils # 9.8 H (1.6-8.9) K/mcL BMP 12/31/17 09:27 Sodium 141 Potassium 3.9 Chloride 99 Carbon Dioxide 27 BUN 31 H Creatinine 1.65 H Glucose 159 H Calcium 8.9 - ABG Interpretation ABG results: PT/INR, D-dimer PT 13.5 Seconds (9.4-12.1) H 12/24/17 00:24 - Impressions Impressions Abdomen X-Ray 12/31/17 07:00 IMPRESSION: No significant change diffuse colonic dilation most likely due to ileus. No findings of small bowel obstruction. D/ / Justin Swenson MD / Justin Swenson MD Interpreting Provider: Justin Swenson MD - Attending Attestation Continue NG tube Consider possible [place]'s syndrome Consider neostigmine versus rectal tube if not improving I examined this patient and my medical decision-making was reviewed with the Resident Physician. I agree with the documented findings, disposition and treatment plan as described except to the extent set forth below.
[2017-12-31 10:52] LABS: Lymphocytes # 2.3 K/mcL (0.6-4.6); Monocytes # 0.3 K/mcL (0.0-1.3); Neutrophils # 9.8 K/mcL (1.6-8.9)
[2017-12-31 10:53] LABS: Platelet Estimate Normal (Normal); Reactive Lymphocytes Present (Not Present)
--- NOTE | 2017-12-31 14:06 | Gastroenterology Consult Note ---
<Cristina Xiong - Last Filed: 12/31/17 14:03> Date of Encounter: 12/31/17 Time of Encounter: 11:00 - Assessment and plan (1) Constipation Current Visit: Yes Status: Acute Assessment and plan: Pt reports large brown semi-formed BM this am with some relief of abdominal bloating and pressure. KUB is unchanged. Will monitor, he may need neostigmine. Qualifiers: Constipation type: slow transit constipation Qualified Code(s): K59.01 - Slow transit constipation (2) Ileus Current Visit: Yes Status: Acute - Time Spent With Patient Total time spent is greater than 50% in coordination of care (as documented) at patient's floor/unit and/or counseling patient: GI History of Present Illness - Data of Consult Patient: new to practice Consult date: 12/31/17 Requesting Physician: Harish Harden - Consult Narrative Reason for consult: constipation/ileus History of present illness: Mr Khalil is a 77 year old male with a pmhx of COPD, HTN,and DM. 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 He developed constipation and general surgery was consulted. CT abdomen and pelvis yesterday showed colonic air-fluid levels consistent with diearrhea illness, no bowel obstruction. He has been treated with miralax bowel prep, and enemas. He has an NGT which had continued drainage. GI was consulted for possible myenteric plexus dysfunction. The patient is sitting up in the chair this morning. He reports large semiformed BM this morning and reports he feels much better. He has NG tube that has been clamped since 10 am and denies nausea or vomiting. His daughter states he had some sort of reaction to a medication approximately 9 months ago and had been on high dose steroids at home. He reports some diarrhea and bloating at home before admission but states not as severe as now. He complains of GERD, denies dysphagia. He denies any bloody/black or tarry stools. He denies chronic constipation. [facility]: 2015 [facility] EGD: 1980s hiatal hernia NSAIDS/ASA: denies Anticoagulants: xarelto Past Med Surg Social Fam HX - Past Medical History Medical history: asthma, COPD, hypertension, other Psychiatric history: no psych history - Past Surgical History Surgical History: herniorrhaphy (Right inguinal), knee replacement (right knee) , other (Colonoscopy- 2013; Heart ablation- 2013; Prostate surgery) - Social History Smoking Status: Never smoker Smokeless Tobacco Status: No Alcohol use: none Drug use: none - Family History Father Living Status: Cause of : prostate cancer Hx Family Cancer: Yes ( of prostate cancer) Mother History Unknown: Yes Living Status: Review of Systems: GI: as per [facility] GENERAL: denies fever or chills EYES: denies yellow discoloration ENT: denies pain with swallowing or difficulty swallowing CARDIO: see HPI RESP: reports improved dyspnea : denies change in color of urine NEURO: weakness HEME: Denies any bruising MS: chronic joint pain. DERM: redness and scaling to the skin for the past 9 months PSYCH: Denies history of anxiety or depression - Constitutional Vitals: Temp Pulse Resp BP Pulse Ox 97.7 F 97 14 148/105 92 12/31/17 07:04 12/31/17 11:12 12/31/17 07:04 12/31/17 11:12 12/31/17 07:04 Exam: CONSTITUTIONAL:~alert, no acute distress.~HEAD:~normocephalic, NGT.~EYES:~no jaundice.~NECK:~no obvious swelling.~HEART:~regular rate and rhythm, no murmurs. ~LUNGS:~bilateral fair air entry.~ABDOMEN:~ distended, firm, non tender, no masses pulpable, no organomegaly, bowel sounds tympanic.~RECTAL EXAM:~Deferred.~ EXTREMITIES:~no clubbing, cyanosis or edema.~SKIN:~no stigmata of chronic liver disease, red, scaly, dry skin .~NEUROLOGIC:~no obvious focal defect.~~~~ Results - Labs CBC & Chem 7: 12/31/17 09:27 12/31/17 09:27 Labs: Last Result Calcium 8.9 mg/dL (8.6-10.3) 12/31/17 09:27 Iron 27 mcg/dL (65-175) L 12/24/17 08:48 % Saturation 10 % (20-55) L 12/24/17 08:48 Transferrin 190 mg/dL (203-362) L 12/24/17 08:48 Troponin I < 0.03 ng/mL (< 0.04) 12/24/17 08:48 Entire Visit Hgb 17.8 g/dL (12.9-16.9) H 12/31/17 09:27 Hct 54.6 % (37.5-50.1) H 12/31/17 09:27 PT 13.5 Seconds (9.4-12.1) H 12/24/17 00:24 Total Bilirubin 0.8 mg/dL (0.3-1.0) 12/28/17 09:22 AST 13 Units/L (13-39) 12/28/17 09:22 ALT 26 Units/L (7-52) 12/28/17 09:22 - ABG ABG results: PT/INR, D-dimer PT 13.5 Seconds (9.4-12.1) H 12/24/17 00:24 - Impressions Impressions Abdomen X-Ray 12/31/17 07:00 IMPRESSION: No significant change diffuse colonic dilation most likely due to ileus. No findings of small bowel obstruction. 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 If you have congestive heart failure and your symptoms return, make an appointment with your physician. Medication List: Carry an up to date list of medications you are taking at all time. We have given you an updated medication list including any new medications that you have been prescribed. Please provide that list to your primary provider Symptoms: If your condition changes or you experience any of the following symptoms, notify your physician immediately: Unusual or worsening pain, fever, persistent nausea and vomiting, bleeding, increase in swelling (especially in your legs), sudden weight gain, extreme dizziness, chest pain, increased drainage or redness from a wound or incision. Go to the emergency department if you experience a problem with breathing. Weights: If you have a history of swelling or shortness of breath, weigh yourself daily and notify your physician if you have a weight gain of two or more pounds in one day or 5 or more pounds in a week. If you experience any of the warning signs for stroke: Sudden numbness or weakness of the face, arm or leg; especially on one side of the body, sudden confusion, trouble speaking or understanding, sudden trouble seeing in one or both eyes, sudden trouble walking, dizziness, loss of balance or coordination, sudden sever headache with no cause; Call 911 or go to the emergency room. Stroke is a medical emergency. Some risk factors for stroke: Age, cigarette smoking, diabetes, excessive alcohol consumption, family history , high blood pressure, overweight, physical inactivity, prior stroke, heart attack, diagnosis of carotid artery stenosis or other artery disease. If you smoke, STOP: Smoking or tobacco use significantly increases your risk of heart and lung disease. Your chance of disease greatly increases if you continue to smoke. For more information, call the [employer] tobacco quit line for smoking cessation 1-010- -NOW ( ) Referrals: Génesis Valladares DO [Primary Care Provider] - 01/12/18 2:00 pm Prescriptions: Rivaroxaban [Xarelto] 1 dose PO AD 30 Days #1 pack <Brandie Quintero - Last Filed: 12/31/17 21:23> Date of Encounter: 12/31/17 Time of Encounter: 16:00 - Time Spent With Patient Total time spent is greater than 50% in coordination of care (as documented) at patient's floor/unit and/or counseling patient: GI History of Present Illness - Data of Consult Requesting Physician: Harish Harden - Consult Narrative History of present illness: Mr. Khalil is a 77 year old male - Constitutional Vitals: Temp Pulse Resp BP Pulse Ox 97.4 F L 93 18 150/98 93 12/31/17 20:50 12/31/17 20:50 12/31/17 20:50 12/31/17 20:50 12/31/17 20:50 Results - Labs CBC & Chem 7: 12/31/17 09:27 12/31/17 09:27 Labs: Last Result Calcium 8.9 mg/dL (8.6-10.3) 12/31/17 09:27 Iron 27 mcg/dL (65-175) L 12/24/17 08:48 % Saturation 10 % (20-55) L 12/24/17 08:48 Transferrin 190 mg/dL (203-362) L 12/24/17 08:48 Troponin I < 0.03 ng/mL (< 0.04) 12/24/17 08:48 Entire Visit Hgb 17.8 g/dL (12.9-16.9) H 12/31/17 09:27 Hct 54.6 % (37.5-50.1) H 12/31/17 09:27 PT 13.5 Seconds (9.4-12.1) H 12/24/17 00:24 Total Bilirubin 0.8 mg/dL (0.3-1.0) 12/28/17 09:22 AST 13 Units/L (13-39) 12/28/17 09:22 ALT 26 Units/L (7-52) 12/28/17 09:22 - ABG ABG results: PT/INR, D-dimer PT 13.5 Seconds (9.4-12.1) H 12/24/17 00:24 - Impressions Impressions Abdomen X-Ray 12/31/17 07:00 IMPRESSION: No significant change diffuse colonic dilation most likely due to ileus. No findings of small bowel obstruction. D/ / Justin Swenson MD / Justin Swenson MD Interpreting Provider: Jutsin Swenson MD - Attending Attestation I examined this patient and my medical decision-making was reviewed with the CRITICAL CARE CLINICAL NURSE SPECIALIST. I agree with the documented findings, disposition and treatment plan as described except to the extent set forth below. Pt with colonic distension < 8 cm with ileus. Had a large BM today and per pt abd distension is better today. Rec: Discussed options with pt/family. Not interested in colonic decompression and also are concern about side effects of neostigmine. Will watch todat to see if has any more BM if not then trail of neostigimine.
[2017-12-31] MEDS ORDERED: SODIUM CHLORIDE/NAHCO3/KCL/PEG 4,000 ML SOLN.RECON PO ONE (22:01)
[2018-01-01] MEDS: Ipratropium/Albuterol Neb 3 ML IH SCH ×5 (00:02→15:16)
[2018-01-01 04:24] LABS: Hematocrit 50.9 % (37.5-50.1); Hemoglobin 16.9 g/dL (12.9-16.9); Mean Corpuscular HGB Conc 33.2 g/dL (31.6-35.5); Mean Corpuscular Hemoglobin 30.1 pg (28.0-33.3); Mean Corpuscular Volume 90.6 fL (83.0-100.0); Platelet Count 205 K/mcL (140-400); Red Blood Count 5.62 M/mcL (4.19-5.50); Red Cell Distribution Width 13.3 % (11.5-14.5)
[2018-01-01 05:10] LABS: BUN/Creatinine Ratio 22 (6-26); Blood Urea Nitrogen 30 mg/dL (8-23); Calcium 8.2 mg/dL (8.6-10.3); Carbon Dioxide 29 mEq/L (23-29); Chloride 104 mEq/L (98-107); Glucose 143 mg/dL (70-105); Osmolality,Calculated 309 (280-300); Potassium 3.5 mEq/L (3.5-5.1); Sodium 145 mEq/L (136-145); eGFR For African Americans > 60 (> 60); eGFR For Non-African Americans 52 (> 60)
[2018-01-01 05:42] LABS: Eosinophils # 0.3 K/mcL (0.0-0.6); Lymphocytes # 1.3 K/mcL (0.6-4.6); Monocytes # 1.3 K/mcL (0.0-1.3); Neutrophils # 9.8 K/mcL (1.6-8.9); Platelet Estimate Normal (Normal); Reactive Lymphocytes Present (Not Present)
[2018-01-01] MEDS: Metoclopramide 10 MG/2 ML VIAL IVP SCH ×4 (05:57→23:27)
[2018-01-01] MEDS: 0.9 % Sodium Chloride 1,000 ML IVC SCH ×3 (05:57→17:58)
--- NOTE | 2018-01-01 07:45 | General Surgery Progress Note ---
<Molly De León - Last Filed: 01/01/18 10:50> Date of Encounter: 01/01/18 Time of Encounter: 07:30 - Assessment and Plan (1) Ileus Status: Acute We did Advance NG 6 cm; repeat KUB so that if needed, NG may be used to administer oral agents for bowel stimulation/prep. Pt reports multiple small/loose BMs this am. ABS. Distention improved. GI following for management of Adynamic ileus; OK to d/c NG from a surgical standoint, but will defer NG managment to GI as they are now following and there is no clear surgical intervention indication at this time. Subjective Patient reports: feels better, still having pain, pain is less, voiding w/o difficulty, flatus, bowel movement, afebrile Objective Vital Signs - Last 8 Hours Temp Pulse Resp BP Pulse Ox 01/01/18 07:00 89 19 151/97 94 01/01/18 04:17 97.7 F 90 18 135/109 91 12/31/17 23:51 96.4 F L 86 18 151/94 93 Intake and Output 12/31/17 12/31/17 01/01/18 15:59 23:59 07:59 Intake Total 0 / 0 2240 / 2240 1600 / 1600 Output Total 1525 / 1525 375 / 375 Balance 0 / 0 715 / 715 1225 / 1225 Intake: IV Fluids 1999 / 1999 1000 / 1000 0.9 % Sodium Chloride 1,000 ML 1999 / 1999 1000 / 1000 @ 175 mls/hr IVC .[id number] [facility] Rx #:[id number] Oral 0 / 0 0 / 0 0 / 0 Other 240 / 240 600 / 600 Output: Urine 475 / 475 375 / 375 Gastric Drainage 1050 / 1050 Other: Meal Breakfast Percent of Meal Consumed 0% Stool Consistency liquid Stool Color Brown # Voids 0 0 Weight 102.55 kg Blood Glucose* 141 126 117 Patient Weight 01/01/18 23:59 Weight 102.55 kg - General physical appearance no distress, moderate pain - Eyes normal ocular movement - ENT atraumatic, normocephalic, Other (NG tube noted in right nares) - Neck Neck exam: trachea midline, no venous distension - Respiratory normal expansion, normal respiratory effort, clear to auscultation - Cardiovascular Cardiovascular exam: Present: RRR, no murmurs/rubs/gallops - Abdomen Abdomen: Present: bowel sounds present, soft, distended, tender (Mildly tender. Patient states significantly improved) Hernia: none - Integumentary other (Rash noted to bilateral arms, legs, and trunk. Patient states he has been having allergic reactions to multiple things lately and has been followed by dermatology. States no acute changes) - Neurologic normal sensation - Musculoskeletal normal posture - Psychiatric oriented to time, oriented to person, oriented to place, speech is normal, memory intact - Labs 01/01/18 04:00 01/01/18 04:00 Diabetes panel 12/31/17 01/01/18 Range/Units 09:27 04:00 Sodium 141 145 (136-145) mEq/L Potassium 3.9 3.5 (3.5-5.1) mEq/L Chloride 99 104 (98-107) mEq/L Carbon Dioxide 27 29 (23-29) mEq/L BUN 31 H 30 H (8-23) mg/dL Creatinine 1.65 H 1.34 H (0.70-1.30) mg/dL Glucose 159 H 143 H (70-105) mg/dL Calcium 8.9 8.2 L (8.6-10.3) mg/dL Calcium panel 12/31/17 01/01/18 Range/Units 09:27 04:00 Calcium 8.9 8.2 L (8.6-10.3) mg/dL Pituitary panel 12/31/17 01/01/18 Range/Units 09:27 04:00 Sodium 141 145 (136-145) mEq/L Potassium 3.9 3.5 (3.5-5.1) mEq/L Chloride 99 104 (98-107) mEq/L Carbon Dioxide 27 29 (23-29) mEq/L BUN 31 H 30 H (8-23) mg/dL Creatinine 1.65 H 1.34 H (0.70-1.30) mg/dL Glucose 159 H 143 H (70-105) mg/dL Calcium 8.9 8.2 L (8.6-10.3) mg/dL Adrenal panel 12/31/17 01/01/18 Range/Units 09:27 04:00 Sodium 141 145 (136-145) mEq/L Potassium 3.9 3.5 (3.5-5.1) mEq/L Chloride 99 104 (98-107) mEq/L Carbon Dioxide 27 29 (23-29) mEq/L BUN 31 H 30 H (8-23) mg/dL Creatinine 1.65 H 1.34 H (0.70-1.30) mg/dL Glucose 159 H 143 H (70-105) mg/dL Calcium 8.9 8.2 L (8.6-10.3) mg/dL Consult Discharge Plan - Plan Instructions: Rivaroxaban (By mouth), Atrial Flutter (DC), Chest Pain (DC), Deep Venous Thrombosis (DC), Deep Venous Thrombosis (GEN), Diabetes Mellitus Type 2 in Adults (DC), Chronic Hypertension (DC), Ileus (DC), Ileus (GEN), Constipation, 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 This means that you will switch to only taking your Xarelto once daily beginning January 19, 2018. Xarelto previously sent to [facility], if discharged over the weekend this prescription will likely need to be printed or sent to another pharmacy. Due to medication sensitivities your other medications were sent to [facility] pharmacy to ensure your Cardizem continued to be from the same heating technician. Please let us know if you have any questions about your medications or there instructions. Follow-up appointments: Follow up with Cardiology as outpatient for new onset Atrial Flutter. Follow up next week with you Primary Care provider. Medication List: Carry an up to date list of medications you are taking at all time. We have given you an updated medication list including any new medications that you have been prescribed. Please provide that list to your primary provider Symptoms: If your condition changes or you experience any of the following symptoms, notify your physician immediately: Unusual or worsening pain, fever, persistent nausea and vomiting, bleeding, increase in swelling (especially in your legs), sudden weight gain, extreme dizziness, chest pain, increased drainage or redness from a wound or incision. Go to the emergency department if you experience a problem with breathing. Weights: If you have a history of swelling or shortness of breath, weigh yourself daily and notify your physician if you have a weight gain of two or more pounds in one day or 5 or more pounds in a week. If you experience any of the warning signs for stroke: Sudden numbness or weakness of the face, arm or leg; especially on one side of the body, sudden confusion, trouble speaking or understanding, sudden trouble seeing in one or both eyes, sudden trouble walking, dizziness, loss of balance or coordination, sudden sever headache with no cause; Call 911 or go to the emergency room. Stroke is a medical emergency. Some risk factors for stroke: Age, cigarette smoking, diabetes, excessive alcohol consumption, family history , high blood pressure, overweight, physical inactivity, prior stroke, heart attack, diagnosis of carotid artery stenosis or other artery disease. If you smoke, STOP: Smoking or tobacco use significantly increases your risk of heart and lung disease. Your chance of disease greatly increases if you continue to smoke. For more information, call the [place] tobacco quit line for smoking cessation 2-417-NOW ( ) Referrals: [facility] [Provider Group] Génesis Valladares DO [Primary Care Provider] - 01/12/18 2:00 pm Prescriptions: dilTIAZem HCl [Cardizem] 60 mg PO Q8HR #90 tablet Lactulose 20 gm PO DAILY PRN 30 Days solution PRN Reason: constipation Rivaroxaban [Xarelto] 1 dose PO AD 30 Days #1 pack Sennosides/Docusate Sodium [Senna Plus] 1 each PO DAILY #30 tablet <Milton Gaston - Last Filed: 01/05/18 08:47> Date of Encounter: 01/01/18 Objective - Labs 01/02/18 03:43 01/02/18 03:43 - Attending Attestation I have personally performed a face to face evaluation on this patient. I have reviewed and agree with the care plan. History and Exam by me shows: The patient was seen and evaluated the morning rounds. Clinical information is shared and discussed the clinical nurse practitioner. The patient has no indication for surgery at this time. He continues to struggle with adynamic colon dilatation. Gastroenterology is following. Milton Gaston MD FACS
[2018-01-01] MEDS: Insulin LISPRO 300 UNITS/3 ML VIAL SQ SCH ×4 (08:12→20:10)
[2018-01-01] MEDS: *HR* Rivaroxaban 15 MG TABLET PO SCH ×2 (08:47→20:10)
[2018-01-01] MEDS: Sennosides/Docusate Sodium TABLET PO SCH (08:47)
[2018-01-01] MEDS: dilTIAZem HCl 60 MG TABLET PO SCH ×3 (08:47→23:27)
--- NOTE | 2018-01-01 10:46 | Internal Med Progress Note ---
<Andre Che - Last Filed: 01/01/18 11:42> Date of Encounter: 01/01/18 Time of Encounter: 11:30 - Assessment and plan (1) Ileus Current Visit: Yes Status: Acute Assessment and plan: Previously having issues with constipation and abd distention. Patient has had multiple BMs this morning. Seen and evaluated by surgery and GI this AM. Agreement to remove NG tube. Patient notes throat irritation, prn chloraseptic spray. IVFs at this time (monitoring closly due to BUE edema). Currently still on combination of medication for constipation. Discussion of possible neostigmine use for distended colon. Appreciate surgery and GIs evaluations and recommendations. (2) Pulmonary embolism and infarction Current Visit: Yes Status: Acute Assessment and plan: Pulmonary embolism was demonstrated on CTA Demonstrated right-sided PE with lateral right lower lobe infarction. Echocardiogram showing ejection fraction of 65% with mild diastolic dysfunction. Grossly normal function of right ventricle. Venous Doppler showed positive DVT in right lower extremity and popliteal and posterior tibial vein Continue Xarelto (3) Atrial flutter Current Visit: Yes Status: Acute Assessment and plan: Did not tolerate long acting cardizem, continuing onshort acting medication. Currently in Atrial flutter, rate controlled in 90s. Discussed with Cardiology, recommended TSH and echo-which patient has had and were essentially normal. Recommending outpatient cardio follow up. Qualifiers: Atrial flutter type: unspecified Qualified Code(s): I48.92 - Unspecified atrial flutter (4) DVT (deep venous thrombosis) Current Visit: Yes Status: Acute Assessment and plan: Continue Xarelto Qualifiers: DVT location: lower extremity Affected thrombotic vein of extremity: popliteal Chronicity: acute Laterality: right Qualified Code(s): I82.431 - Acute embolism and thrombosis of right popliteal vein (5) Polycythemia Current Visit: Yes Status: Acute Assessment and plan: - H&H slightly improved - Possibly reactive secondary to PE vs Asthma vs undiagnosed sleep apnea -Iron studies demonstrating mild iron deficiency anemia. Plan - Continue to monitor and treat underlying issues as they are discovered. - Will likely need to follow up as outpatient with PCP and possibly hematology (6) Thrombocytopenia Current Visit: Yes Status: Resolved Assessment and plan: Continues to improve Will recheck in the morning (7) Acute kidney injury Current Visit: Yes Status: Acute Assessment and plan: Creatinine slightly improved with increased IVFs with Cr. of 1.34. We will continue to monitor and avoid nephrotoxic agents. (8) Diabetes mellitus Current Visit: Yes Status: Chronic Assessment and plan: Type 2 diabetes mellitus Insulin has been ordered Qualifiers: Diabetes mellitus type: type 2 Diabetes mellitus complication status: with hyperglycemia Diabetes mellitus usp insulin use: without rat exterminator use Qualified Code(s): E11.65 - Type 2 diabetes mellitus with hyperglycemia (9) HTN (hypertension) Current Visit: Yes Status: Chronic Assessment and plan: Currently hemodynamically stable Continue Home medications Qualifiers: Hypertension type: essential hypertension Qualified Code(s): I10 - Essential (primary) hypertension (10) Dermatitis Current Visit: Yes Status: Chronic Assessment and plan: Pt reports a chronic dermatitis which he follow with [facility] dermatology, 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 Follow up as outpatient Avoid allergies. - Time Spent With Patient less than 15 minutes - Subjective Interval history: Patient noted to have multiple BMs this AM, denies nausea or vomiting. Seen by Surgery and GI, patient looking forward to NG removal. Denies respiratory issues. Notes improvement in abdomen distention. Notes upper extremity swelling since the increase of IVF rate. No acute distress. - Constitutional Vitals: Temp Pulse Resp BP Pulse Ox 97.7 F 89 19 151/97 94 01/01/18 04:17 01/01/18 07:00 01/01/18 07:00 01/01/18 07:00 01/01/18 09:00 General appearance: Present: cooperative, A&O X 3, pleasant, answers questions appropriately - Head Head exam: Present: atraumatic, normocephalic - Eye Eye exam: Present: conjunctival injection, EOMI - Neck Neck exam general surgery: Present: supple - Respiratory Respiratory exam: Present: rhonchi. Absent: accessory muscle use, rales, wheezes - Cardiovascular Cardiovascular exam: Present: irregular rhythm. Absent: diastolic murmur, gallop, rubs, systolic murmur - GI/Abdominal GI/Abdominal exam: Present: distended (but improved compared to exam two days ago), hypoactive bowel sounds, soft, no peritoneal signs. Absent: tenderness - Extremities Exam Extremities exam: Present: warm. Absent: calf tenderness, cyanotic Additional comments: mild swelling of bilateral upper extremities noted. - Neurological Exam Neurological exam: Present: alert, oriented X3, no focal deficits. Absent: facial droop, speech deficit - Skin Skin exam: Present: dry, intact Internal Medicine: Result - Labs CBC & Chem 7: 01/01/18 04:00 01/01/18 04:00 Labs: Short CBC 12/31/17 01/01/18 Range/Units 09:27 04:00 WBC 12.5 H (4.3-11.1) K/mcL Hgb 16.9 (12.9-16.9) g/dL Hct 50.9 H (37.5-50.1) % Plt Count 205 (140-400) K/mcL Neutrophils # 9.8 H 9.8 H (1.6-8.9) K/mcL BMP 01/01/18 04:00 Sodium 145 Potassium 3.5 Chloride 104 Carbon Dioxide 29 BUN 30 H Creatinine 1.34 H Glucose 143 H Calcium 8.2 L - ABG Interpretation ABG results: PT/INR, D-dimer PT 13.5 Seconds (9.4-12.1) H 12/24/17 00:24 - Impressions Impressions KUB X-Ray 01/01/18 07:10 IMPRESSION: Nasogastric tube tip overlies the body of the stomach. Stable gaseous distention of the colon. D/ / Liang Castro MD / Liang Castro MD Interpreting Provider: Liang Castro MD - VTE Documentation of Mechanical Device: Intermittent pneumatic compression device Consult Discharge Plan - Plan Instructions: Rivaroxaban (By mouth), Atrial Flutter (DC), Chest Pain (DC), Deep Venous Thrombosis (DC), Deep Venous Thrombosis (GEN), Diabetes Mellitus Type 2 in Adults (DC), Chronic Hypertension (DC), Ileus (DC), Ileus (GEN), Constipation, Nurse Assessor (GEN) Additional Instructions: Follow-up appointments: If there is not an appointment listed below, please call your physician and schedule a follow-up appointment. If you have congestive heart failure and your symptoms return, make an appointment with your physician. Medication List: Carry an up to date list of medications you are taking at all time. We have given you an updated medication list including any new medications that you have been prescribed. Please provide that list to your primary provider Symptoms: If your condition changes or you experience any of the following symptoms, notify your physician immediately: Unusual or worsening pain, fever, persistent nausea and vomiting, bleeding, increase in swelling (especially in your legs), sudden weight gain, extreme dizziness, chest pain, increased drainage or redness from a wound or incision. Go to the emergency department if you experience a problem with breathing. Weights: If you have a history of swelling or shortness of breath, weigh yourself daily and notify your physician if you have a weight gain of two or more pounds in one day or 5 or more pounds in a week. If you experience any of the warning signs for stroke: Sudden numbness or weakness of the face, arm or leg; especially on one side of the body, sudden confusion, trouble speaking or understanding, sudden trouble seeing in one or both eyes, sudden trouble walking, dizziness, loss of balance or coordination, sudden sever headache with no cause; Call 911 or go to the emergency room. Stroke is a medical emergency. Some risk factors for stroke: Age, cigarette smoking, diabetes, excessive alcohol consumption, family history , high blood pressure, overweight, physical inactivity, prior stroke, heart attack, diagnosis of carotid artery stenosis or other artery disease. If you smoke, STOP: Smoking or tobacco use significantly increases your risk of heart and lung disease. Your chance of disease greatly increases if you continue to smoke. For more information, call the [place] tobacco quit line for smoking cessation - QUIT-NOW ( ) Referrals: Génesis Valladares DO [Primary Care Provider] - 01/12/18 2:00 pm Prescriptions: Rivaroxaban [Xarelto] 1 dose PO AD 30 Days #1 pack <Harish Harden H - Last Filed: 01/01/18 15:06> Date of Encounter: 01/01/18 - Constitutional Vitals: Temp Pulse Resp BP Pulse Ox 97.7 F 89 19 151/97 94 01/01/18 04:17 01/01/18 07:00 01/01/18 07:00 01/01/18 07:00 01/01/18 09:00 Internal Medicine: Result - Labs CBC & Chem 7: 01/01/18 04:00 01/01/18 04:00 Labs: Short CBC 01/01/18 Range/Units 04:00 WBC 12.5 H (4.3-11.1) K/mcL Hgb 16.9 (12.9-16.9) g/dL Hct 50.9 H (37.5-50.1) % Plt Count 205 (140-400) K/mcL Neutrophils # 9.8 H (1.6-8.9) K/mcL BMP 01/01/18 04:00 Sodium 145 Potassium 3.5 Chloride 104 Carbon Dioxide 29 BUN 30 H Creatinine 1.34 H Glucose 143 H Calcium 8.2 L - ABG Interpretation ABG results: PT/INR, D-dimer PT 13.5 Seconds (9.4-12.1) H 12/24/17 00:24 - Impressions Impressions KUB X-Ray 01/01/18 07:10 IMPRESSION: Nasogastric tube tip overlies the body of the stomach. Stable gaseous distention of the colon. D/ / Liang Castro MD / Liang Castro MD Interpreting Provider: Liang Castro MD - Attending Attestation Ileus seems to be improving NG tube was removed, may try clears, Back to NPO if worse Decrease IV fluids I examined this patient and my medical decision-making was reviewed with the Resident Physician. I agree with the documented findings, disposition and treatment plan as described except to the extent set forth below.
[2018-01-01] MEDS ORDERED: Chloraseptic Spray 177 ML BOTTLE MM PRN (11:30)
--- NOTE | 2018-01-01 14:37 | Gastroenterology Progress Note ---
Date of Encounter: 01/01/18 Time of Encounter: 10:30 - Assessment and plan (1) Constipation Current Visit: Yes Status: Acute Assessment and plan: Pt has had multiple BMs folowing bowel prep. He denies nausea and vomiting. Agree with removal of NGT. Qualifiers: Constipation type: slow transit constipation Qualified Code(s): K59.01 - Slow transit constipation (2) Ileus Current Visit: Yes Status: Acute - Time Spent With Patient Total time spent is greater than 50% in coordination of care (as documented) at patient's floor/unit and/or counseling patient: - Subjective Interval history: Pt is up and back up to [facility] [place]. He reports large BM, 4 total this morning following bowel prep last night. He has improved abdominal distention. He denies nausea and vomiting. He tolerated a cup of ice cream last night. He is asking to have NGT removed. - Constitutional Vitals: Temp Pulse Resp BP Pulse Ox 97.7 F 89 19 151/97 94 01/01/18 04:17 01/01/18 07:00 01/01/18 07:00 01/01/18 07:00 01/01/18 09:00 Exam: CONSTITUTIONAL:~alert, no acute distress.~HEAD:~normocephalic.~EYES:~no jaundice.~NECK:~no obvious swelling.~HEART:~regular rate and rhythm, no murmurs. ~LUNGS:~bilateral fair air entry.~ABDOMEN:~distended, but improved, soft, nontender, no masses palpable, no organomegaly.~RECTAL EXAM:~Deferred.~ EXTREMITIES:~no clubbing, cyanosis, increased edema in upper extremeties.~SKIN:~ skin red, scaly and itching no stigmata of chronic liver disease.~NEUROLOGIC:~ no obvious focal defect.~~~~ Results - Labs CBC & Chem 7: 01/01/18 04:00 01/01/18 04:00 Labs: Last Result Calcium 8.2 mg/dL (8.6-10.3) L 01/01/18 04:00 Iron 27 mcg/dL (65-175) L 12/24/17 08:48 % Saturation 10 % (20-55) L 12/24/17 08:48 Transferrin 190 mg/dL (203-362) L 12/24/17 08:48 Troponin I < 0.03 ng/mL (< 0.04) 12/24/17 08:48 Entire Visit Hgb 16.9 g/dL (12.9-16.9) 01/01/18 04:00 Hct 50.9 % (37.5-50.1) H 01/01/18 04:00 PT 13.5 Seconds (9.4-12.1) H 12/24/17 00:24 Total Bilirubin 0.8 mg/dL (0.3-1.0) 12/28/17 09:22 AST 13 Units/L (13-39) 12/28/17 09:22 ALT 26 Units/L (7-52) 12/28/17 09:22 - ABG ABG results: PT/INR, D-dimer PT 13.5 Seconds (9.4-12.1) H 12/24/17 00:24 - Impressions Impressions KUB X-Ray 01/01/18 07:10 IMPRESSION: Nasogastric tube tip overlies the body of the stomach. Stable gaseous distention of the colon. D/ / Liang Castro MD / Liang Castro MD Interpreting Provider: Liang Castro MD - VTE Documentation of Mechanical Device: Intermittent pneumatic compression device Consult Discharge Plan - Plan Instructions: Rivaroxaban (By mouth), Atrial Flutter (DC), Chest Pain (DC), Deep Venous Thrombosis (DC), Deep Venous Thrombosis (GEN), Diabetes Mellitus Type 2 in Adults (DC), Chronic Hypertension (DC), Ileus (DC), Ileus (GEN), Constipation, Refined Syrup Operator (GEN) Additional Instructions: Follow-up appointments: If there is not an appointment listed below, please call your physician and schedule a follow-up appointment. If you have congestive heart failure and your symptoms return, make an appointment with your physician. Medication List: Carry an up to date list of medications you are taking at all time. We have given you an updated medication list including any new medications that you have been prescribed. Please provide that list to your primary provider Symptoms: If your condition changes or you experience any of the following symptoms, notify your physician immediately: Unusual or worsening pain, fever, persistent nausea and vomiting, bleeding, increase in swelling (especially in your legs), sudden weight gain, extreme dizziness, chest pain, increased drainage or redness from a wound or incision. Go to the emergency department if you experience a problem with breathing. Weights: If you have a history of swelling or shortness of breath, weigh yourself daily and notify your physician if you have a weight gain of two or more pounds in one day or 5 or more pounds in a week. If you experience any of the warning signs for stroke: Sudden numbness or weakness of the face, arm or leg; especially on one side of the body, sudden confusion, trouble speaking or understanding, sudden trouble seeing in one or both eyes, sudden trouble walking, dizziness, loss of balance or coordination, sudden sever headache with no cause; Call 911 or go to the emergency room. Stroke is a medical emergency. Some risk factors for stroke: Age, cigarette smoking, diabetes, excessive alcohol consumption, family history , high blood pressure, overweight, physical inactivity, prior stroke, heart attack, diagnosis of carotid artery stenosis or other artery disease. If you smoke, STOP: Smoking or tobacco use significantly increases your risk of heart and lung disease. Your chance of disease greatly increases if you continue to smoke. For more information, call the [place] tobacco quit line for smoking cessation 7 QUIT-NOW ( ) Referrals: Génesis Valladares DO [Primary Care Provider] - 01/12/18 2:00 pm Prescriptions: Rivaroxaban [Xarelto] 1 dose PO AD 30 Days #1 pack
[2018-01-01] MEDS ORDERED: Ipratropium/Albuterol Neb 3 ML IH PRN (15:52)
[2018-01-02] MEDS: 0.9 % Sodium Chloride 1,000 ML IVC SCH ×2 (01:06→16:12)
[2018-01-02 04:19] LABS: Basophils % 0.2 %; Eosinophils # 0.2 K/mcL (0.0-0.6); Eosinophils % 1.6 %; Hemoglobin 16.4 g/dL (12.9-16.9); Immature Granulocytes % 8.3 % (0-4); Lymphocytes # 1.3 K/mcL (0.6-4.6); Lymphocytes % 10.7 %; Mean Corpuscular HGB Conc 32.8 g/dL (31.6-35.5); Mean Corpuscular Volume 91.4 fL (83.0-100.0); Mean Platelet Volume 9.4 fL (9.4-12.4); Platelet Count 206 K/mcL (140-400); Red Blood Count 5.47 M/mcL (4.19-5.50); Red Cell Distribution Width 13.2 % (11.5-14.5); Segmented Neutrophils % 71.2 %
[2018-01-02 04:25] LABS: BUN/Creatinine Ratio 20 (6-26); Blood Urea Nitrogen 26 mg/dL (8-23); Calcium 8.4 mg/dL (8.6-10.3); Carbon Dioxide 28 mEq/L (23-29); Chloride 108 mEq/L (98-107); Glucose 123 mg/dL (70-105); Osmolality,Calculated 308 (280-300); Potassium 3.4 mEq/L (3.5-5.1); Sodium 146 mEq/L (136-145); eGFR For African Americans > 60 (> 60); eGFR For Non-African Americans 54 (> 60)
[2018-01-02 04:52] LABS: Neutrophils # 8.5 K/mcL (1.6-8.9)
[2018-01-02] MEDS: Metoclopramide 10 MG/2 ML VIAL IVP SCH ×4 (05:08→23:46)
[2018-01-02 05:31] LABS: Platelet Estimate Normal (Normal)
[2018-01-02] MEDS: Insulin LISPRO 300 UNITS/3 ML VIAL SQ SCH ×4 (08:23→20:16)
[2018-01-02] MEDS: *HR* Rivaroxaban 15 MG TABLET PO SCH ×2 (08:38→20:17)
[2018-01-02] MEDS: Sennosides/Docusate Sodium TABLET PO SCH (08:38)
[2018-01-02] MEDS: dilTIAZem HCl 60 MG TABLET PO SCH ×3 (08:38→23:46)
--- NOTE | 2018-01-02 11:36 | Internal Med Progress Note ---
<Andre Che - Last Filed: 01/02/18 13:10> Date of Encounter: 01/02/18 Time of Encounter: 11:40 - Assessment and plan (1) Ileus Current Visit: Yes Status: Acute Assessment and plan: Improving. Previously having issues with constipation and abd distention. Patient has had multiple BMs. Seen and evaluated by surgery and GI. Previously had NG tube, this since removed and Patient dud well on clear liquids. IVFs at this time (monitoring closely due to BUE edema) likely discontinue IVF as we advance diet. Currently still on combination of medication for constipation, slowly streamlining medications (discontinued ducolax). Discussion of possible neostigmine use for distended colon, however, patient appears to be doing well. Plan to advance diet as tolerated, plan for full liquids at lunch. Appreciate surgery and GIs evaluations and recommendations. (2) Pulmonary embolism and infarction Current Visit: Yes Status: Acute Assessment and plan: Pulmonary embolism was demonstrated on CTA Demonstrated right-sided PE with lateral right lower lobe infarction. Echocardiogram showing ejection fraction of 65% with mild diastolic dysfunction. Grossly normal function of right ventricle. Venous Doppler showed positive DVT in right lower extremity and popliteal and posterior tibial vein Continue Xarelto (3) Atrial flutter Current Visit: Yes Status: Acute Assessment and plan: Did not tolerate long acting cardizem, continuing onshort acting medication. Currently in Atrial flutter, rate controlled in 90s. Discussed with Cardiology, recommended TSH and echo-which patient has had and were essentially normal. Recommending outpatient cardio follow up. Qualifiers: Atrial flutter type: unspecified Qualified Code(s): I48.92 - Unspecified atrial flutter (4) DVT (deep venous thrombosis) Current Visit: Yes Status: Acute Assessment and plan: Continue Xarelto Qualifiers: DVT location: lower extremity Affected thrombotic vein of extremity: popliteal Chronicity: acute Laterality: right Qualified Code(s): I82.431 - Acute embolism and thrombosis of right popliteal vein (5) Polycythemia Current Visit: Yes Status: Acute Assessment and plan: - H&H improved - Possibly reactive secondary to PE vs Asthma vs undiagnosed sleep apnea -Iron studies demonstrating mild iron deficiency anemia. Plan - Continue to monitor and treat underlying issues as they are discovered. - Will likely need to follow up as outpatient with PCP and possibly hematology (6) Thrombocytopenia Current Visit: Yes Status: Resolved Assessment and plan: Continues to improve Will recheck in the morning (7) Acute kidney injury Current Visit: Yes Status: Acute Assessment and plan: Creatinine continues to improve with Cr. of 1.29. We will continue to monitor and avoid nephrotoxic agents. (8) Diabetes mellitus Current Visit: Yes Status: Chronic Assessment and plan: Type 2 diabetes mellitus Insulin has been ordered Qualifiers: Diabetes mellitus type: type 2 Diabetes mellitus complication status: with hyperglycemia Diabetes mellitus group home insulin use: without intermediate accountant use Qualified Code(s): E11.65 - Type 2 diabetes mellitus with hyperglycemia (9) HTN (hypertension) Current Visit: Yes Status: Chronic Assessment and plan: Occasionally BP elevated. Currently hemodynamically stable Continue Home medications and monitoring. 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 Follow up as outpatient Avoid allergies. - Time Spent With Patient 25 - 35 minutes - Subjective Interval history: Patient notes continued BMs and no issues urinating. Getting up to ambulate and up to chair more often as he is having irritation to his back/buttocks from spending more time in bed. Patient notes the supplied barrier cream is also helping. He tolerated the clear liquids well. No acute distress at this time, no other complaints.Denies nausea or vomiting. - Constitutional Vitals: Temp Pulse Resp BP Pulse Ox 97.6 F 72 18 161/103 97 01/02/18 07:00 01/02/18 07:00 01/02/18 07:00 01/02/18 07:00 01/02/18 07:00 General appearance: Present: cooperative, A&O X 3, pleasant, answers questions appropriately - Head Head exam: Present: atraumatic, normocephalic - Eye Eye exam: Present: EOMI - Neck Neck exam general surgery: Present: supple, trachea midline - Respiratory Respiratory exam: Present: CTAB. Absent: accessory muscle use, rales, rhonchi, wheezes - Cardiovascular Cardiovascular exam: Present: RRR, +S1, +S2. Absent: diastolic murmur, gallop, rubs, systolic murmur - GI/Abdominal GI/Abdominal exam: Present: normal bowel sounds, soft, no peritoneal signs. Absent: distended, tenderness - Extremities Exam Extremities exam: Present: pedal edema (1+ BLE edema), warm. Absent: calf tenderness, cyanotic, tenderness - Neurological Exam Neurological exam: Present: alert, oriented X3, no focal deficits. Absent: facial droop, speech deficit - Skin Skin exam: Present: dry, intact Internal Medicine: Result - Labs CBC & Chem 7: 01/02/18 03:43 01/02/18 03:43 Labs: Short CBC 01/02/18 Range/Units 03:43 WBC 12.0 H (4.3-11.1) K/mcL Hgb 16.4 (12.9-16.9) g/dL Hct 50.0 (37.5-50.1) % Plt Count 206 (140-400) K/mcL Neutrophils # 8.5 (1.6-8.9) K/mcL BMP 01/02/18 03:43 Sodium 146 H Potassium 3.4 L Chloride 108 H Carbon Dioxide 28 BUN 26 H Creatinine 1.29 Glucose 123 H Calcium 8.4 L - ABG Interpretation ABG results: PT/INR, D-dimer PT 13.5 Seconds (9.4-12.1) H 12/24/17 00:24 - VTE Documentation of Mechanical Device: Intermittent pneumatic compression device Consult Discharge Plan - Plan Instructions: Rivaroxaban (By mouth), Atrial Flutter (DC), Chest Pain (DC), Deep Venous Thrombosis (DC), Deep Venous Thrombosis (GEN), Diabetes Mellitus Type 2 in Adults (DC), Chronic Hypertension (DC), Ileus (DC), Ileus (GEN), Constipation, Hot Stone Setter (GEN) Additional Instructions: Follow-up appointments: If there is not an appointment listed below, please call your physician and schedule a follow-up appointment. If you have congestive heart failure and your symptoms return, make an appointment with your physician. Medication List: Carry an up to date list of medications you are taking at all time. We have given you an updated medication list including any new medications that you have been prescribed. Please provide that list to your primary provider Symptoms: If your condition changes or you experience any of the following symptoms, notify your physician immediately: Unusual or worsening pain, fever, persistent nausea and vomiting, bleeding, increase in swelling (especially in your legs), sudden weight gain, extreme dizziness, chest pain, increased drainage or redness from a wound or incision. Go to the emergency department if you experience a problem with breathing. Weights: If you have a history of swelling or shortness of breath, weigh yourself daily and notify your physician if you have a weight gain of two or more pounds in one day or 5 or more pounds in a week. If you experience any of the warning signs for stroke: Sudden numbness or weakness of the face, arm or leg; especially on one side of the body, sudden confusion, trouble speaking or understanding, sudden trouble seeing in one or both eyes, sudden trouble walking, dizziness, loss of balance or coordination, sudden sever headache with no cause; Call 911 or go to the emergency room. Stroke is a medical emergency. Some risk factors for stroke: Age, cigarette smoking, diabetes, excessive alcohol consumption, family history , high blood pressure, overweight, physical inactivity, prior stroke, heart attack, diagnosis of carotid artery stenosis or other artery disease. If you smoke, STOP: Smoking or tobacco use significantly increases your risk of heart and lung disease. Your chance of disease greatly increases if you continue to smoke. For more information, call the [place] tobacco quit line for smoking cessation 4-507- QUIT-NOW ( ) Referrals: Génesis Valladares DO [Primary Care Provider] - 01/12/18 2:00 pm Prescriptions: Rivaroxaban [Xarelto] 1 dose PO AD 30 Days #1 pack <Harish Harden H - Last Filed: 01/02/18 14:57> Date of Encounter: 01/02/18 - Constitutional Vitals: Temp Pulse Resp BP Pulse Ox 97.6 F 72 16 161/103 94 01/02/18 07:00 01/02/18 07:00 01/02/18 14:44 01/02/18 07:00 01/02/18 14:44 Internal Medicine: Result - Labs CBC & Chem 7: 01/02/18 03:43 01/02/18 03:43 Labs: Short CBC 01/02/18 Range/Units 03:43 WBC 12.0 H (4.3-11.1) K/mcL Hgb 16.4 (12.9-16.9) g/dL Hct 50.0 (37.5-50.1) % Plt Count 206 (140-400) K/mcL Neutrophils # 8.5 (1.6-8.9) K/mcL BMP 01/02/18 03:43 Sodium 146 H Potassium 3.4 L Chloride 108 H Carbon Dioxide 28 BUN 26 H Creatinine 1.29 Glucose 123 H Calcium 8.4 L - ABG Interpretation ABG results: PT/INR, D-dimer PT 13.5 Seconds (9.4-12.1) H 12/24/17 00:24 - Attending Attestation Ileus seems to be improving NG tube was removed, tolerating full liquids May be discharged in the morning if tolerating diet I examined this patient and my medical decision-making was reviewed with the Resident Physician. I agree with the documented findings, disposition and treatment plan as described except to the extent set forth below.
[2018-01-02] MEDS ORDERED: methylPREDNISolone 125 MG/2 ML VIAL IVP ONE (13:36)
--- NOTE | 2018-01-02 14:37 | Discharge Summary ---
<Andre Che - Last Filed: 01/02/18 22:29> Date of Encounter: 01/02/18 - Discharge Diagnosis (1) Ileus Priority: Primary Status: Acute (2) Pulmonary embolism and infarction Priority: Primary Status: Acute (3) Atrial flutter Priority: Secondary Status: Acute Qualifiers: Atrial flutter type: unspecified Qualified Code(s): I48.92 - Unspecified atrial flutter (4) DVT (deep venous thrombosis) Priority: Secondary Status: Acute Qualifiers: DVT location: lower extremity Affected thrombotic vein of extremity: popliteal Chronicity: acute Laterality: right Qualified Code(s): I82.431 - Acute embolism and thrombosis of right popliteal vein (5) Polycythemia Priority: Secondary Status: Acute (6) Thrombocytopenia Priority: Secondary Status: Resolved (7) Acute kidney injury Priority: Secondary Status: Acute (8) Diabetes mellitus Priority: Secondary Status: Chronic Qualifiers: Diabetes mellitus type: type 2 Diabetes mellitus complication status: with hyperglycemia Diabetes mellitus manager intermediate insulin use: without manager intermediate use Qualified Code(s): E11.65 - Type 2 diabetes mellitus with hyperglycemia (9) HTN (hypertension) Priority: Secondary Status: Chronic Qualifiers: Hypertension type: essential hypertension Qualified Code(s): I10 - Essential (primary) hypertension (10) Dermatitis Priority: Secondary Status: Chronic - Discharge Medications Prescriptions: dilTIAZem HCl [Cardizem] 60 mg PO Q8HR #90 tablet Lactulose 20 gm PO DAILY PRN 30 Days solution PRN Reason: constipation Rivaroxaban [Xarelto] 1 dose PO AD 30 Days #1 pack Sennosides/Docusate Sodium [Senna Plus] 1 each PO DAILY #30 tablet Home Medications: Rivaroxaban [Xarelto] 1 dose PO AD 30 Days #1 pack 12/25/17 [Rx] Sennosides/Docusate Sodium [Senna Plus] 1 each PO DAILY #30 tablet 01/02/18 [Rx] dilTIAZem HCl [Cardizem] 60 mg PO Q8HR #90 tablet 01/02/18 [Rx] Lactulose 20 gm PO DAILY PRN 30 Days solution 01/03/18 [Rx] Allergies/Adverse Reactions: 3 Allergy/AdvReac Type Severity Reaction Status Date / Time acetaminophen [From Percocet] Allergy Rash Verified 12/26/17 02:03 diphenhydramine Allergy Rash Verified 12/25/17 21:16 [From Benadryl] formaldehyde Allergy Rash Verified 12/23/17 14:14 Oxycodone [From Percocet] Allergy Rash Verified 12/26/17 02:03 soybean Allergy Rash Verified 12/23/17 14:14 Date of admission: 12/23/17 18:27 Primary care physician: Génesis Valladares Consults: 12/24/17 18:48 Consult to Respiratory Therapy [CONS] Routine Reason for Consult: Overnight Pulse oxymetry for suspected CHASIDY Call Completed: No 12/28/17 10:52 Consult to Surgery [CONS] Routine Consulting Provider: [facility] Reason for Consult: Possible SBO Time Notified: 10:45 Call Completed: Yes 12/31/17 08:38 Consult to Gastroenterology [CONS] Routine Consulting Provider: [facility] Reason for Consult: decompression of colon/ileus Call Completed: Yes 12/31/17 10:41 Consult to Invasive Line Access Team [CONS] Routine Reason for Consult: limited vascular access Line Type: EPIV PICC line indications: Limited vascular access Time Notified: 10:42 Call Completed: Yes Discharging clinician: Harish Harden Anticipated date of discharge: 01/03/18 - Patient Status Disposition: Home, Self-Care Condition: Good Functional capacity at discharge: independent ambulation Overall status at discharge: patient is progressing back to baseline - Discharge Instructions Instructions: Rivaroxaban (By mouth), Atrial Flutter (DC), Chest Pain (DC), Deep Venous Thrombosis (DC), Deep Venous Thrombosis (GEN), Diabetes Mellitus Type 2 in Adults (DC), Chronic Hypertension (DC), Ileus (DC), Ileus (GEN), 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 This means that you will switch to only taking your Xarelto once daily beginning January 19, 2018. Xarelto previously sent to [facility], if discharged over the weekend this prescription will likely need to be printed or sent to another pharmacy. 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 Please let us know if you have any questions about your medications or there instructions. Follow-up appointments: Follow up with Cardiology as outpatient for new onset Atrial Flutter. Follow up next week with you Primary Care provider. Medication List: Carry an up to date list of medications you are taking at all time. We have given you an updated medication list including any new medications that you have been prescribed. Please provide that list to your primary provider Symptoms: If your condition changes or you experience any of the following symptoms, notify your physician immediately: Unusual or worsening pain, fever, persistent nausea and vomiting, bleeding, increase in swelling (especially in your legs), sudden weight gain, extreme dizziness, chest pain, increased drainage or redness from a wound or incision. Go to the emergency department if you experience a problem with breathing. Weights: If you have a history of swelling or shortness of breath, weigh yourself daily and notify your physician if you have a weight gain of two or more pounds in one day or 5 or more pounds in a week. If you experience any of the warning signs for stroke: Sudden numbness or weakness of the face, arm or leg; especially on one side of the body, sudden confusion, trouble speaking or understanding, sudden trouble seeing in one or both eyes, sudden trouble walking, dizziness, loss of balance or coordination, sudden sever headache with no cause; Call 911 or go to the emergency room. Stroke is a medical emergency. Some risk factors for stroke: Age, cigarette smoking, diabetes, excessive alcohol consumption, family history , high blood pressure, overweight, physical inactivity, prior stroke, heart attack, diagnosis of carotid artery stenosis or other artery disease. If you smoke, STOP: Smoking or tobacco use significantly increases your risk of heart and lung disease. Your chance of disease greatly increases if you continue to smoke. For more information, call the [place] tobacco quit line for smoking cessation - QUIT-NOW ( ) - Diet and Activity Activity: increase activity as tolerated Diet: advance to your usual diet Hospital course: Mr. Khalil is a 77 year old male admitted for Rt lung pulmonary emboli with CT evidence of infarct. History of HTN, DM-II on no Rx, and unspecified chronic skin condition. No known active malignancy, no history of blood clots (DVT/PE), no hemoptysis; but had been somewhat more sedentary the few days prior. Previously not on any anticoagulant/antiplatelet rx. No known history of hypercoagulability. Venous Doppler showed positive DVT in right lower extremity and popliteal and posterior tibial vein. Patient was started on heparin therapy before transitioning to Xarelto. Patient respiratory status continued to improve, however, inpatient stay complicated by new onset Atrial flutter and an ileus. Patient also found to have polycythemia, thrombocytopenia, and ARLET during stay; these continued to improved with treatment of other conditions. Denies hx of A. flutter, rate controlled on cardizem 60mg Q6H (did not tolerate long acting). TSH and echo essentially normal, discussed with cardiology recommending outpatient follow up. No BMs noted for 6 days, patient's abdomen was distended and unable to tolerate regular diet. GI and surgery consult, CT abdomen showed colonic distension. Discussion of observation, surgical decompression, neostigmine. Patient's bowel regimen was increased to senna plus, colace, dulcolax, reglan. NG tube placed. Patient's bowel function returned, able to tolerate advancing diet. Denies nausea, vomiting at this time. Notes multiple BMs, slowly backing off additional bowel medications. - Time Spent with Patient Total time spent providing and/or coordinating discharge services: - Constitutional Vitals: Temp Pulse Resp BP Pulse Ox 97.6 F 72 18 161/103 97 01/02/18 07:00 01/02/18 07:00 01/02/18 07:00 01/02/18 07:00 01/02/18 07:00 General appearance: Present: cooperative, A&O X 3, pleasant, answers questions appropriately - VTE Documentation of Mechanical Device: Intermittent pneumatic compression device <Harish Harden - Last Filed: 01/03/18 10:43> Date of Encounter: 01/03/18 Time of Encounter: 10:37 Date of admission: 12/23/17 18:27 Primary care physician: Génesis Valladares Consults: 12/24/17 18:48 Consult to Respiratory Therapy [CONS] Routine Reason for Consult: Overnight Pulse oxymetry for suspected CHASIDY Call Completed: No 12/28/17 10:52 Consult to Surgery [CONS] Routine Consulting Provider: [facility] Reason for Consult: Possible SBO Time Notified: 10:45 Call Completed: Yes 12/31/17 08:38 Consult to Gastroenterology [CONS] Routine Consulting Provider: [facility] Reason for Consult: decompression of colon/ileus Call Completed: Yes 12/31/17 10:41 Consult to Invasive Line Access Team [CONS] Routine Reason for Consult: limited vascular access Line Type: EPIV PICC line indications: Limited vascular access Time Notified: 10:42 Call Completed: Yes Hospital course: The patient required to complete 15 more days of xarelto 15 mg twice a day and then switch to 20 mg daily, a prescription has been provided - Time Spent with Patient Total time spent providing and/or coordinating discharge services: Greater than 30 minutes (40 min) - Constitutional Vitals: Temp Pulse Resp BP Pulse Ox 97.8 F 66 16 108/85 98 01/03/18 08:18 01/03/18 08:18 01/03/18 08:18 01/03/18 08:18 01/03/18 08:18
[2018-01-03] MEDS: Metoclopramide 10 MG/2 ML VIAL IVP SCH (05:14)
[2018-01-03] MEDS: 0.9 % Sodium Chloride 1,000 ML IVC SCH (05:15)
[2018-01-03 08:23] VITALS: BP 108/85
[2018-01-03] MEDS: Insulin LISPRO 300 UNITS/3 ML VIAL SQ SCH (09:19)
[2018-01-03] MEDS: *HR* Rivaroxaban 15 MG TABLET PO SCH (09:19)
[2018-01-03] MEDS: dilTIAZem HCl 60 MG TABLET PO SCH (09:19)
[2018-01-03] MEDS: Sennosides/Docusate Sodium TABLET PO SCH (09:19)
== END 2018-01-03 12:26 | disposition home or self-care (01) | DRG 176 ==
LOC: EMEROO 14:02 → 2NENU 18:27 → SUATTDRO 18:27 → 2NENU 18:50
PROVIDERS: ADMIT Nurse Practitioner; ATTEND Internal Medicine

== ENCOUNTER 2022-04-11 05:30 | Inpatient (IN) ==
[2022-04-11] MEDS ORDERED: Vancomycin 1,000 MG VIAL IVPB ONE (05:42)
[2022-04-11] MEDS ORDERED: 0.9 % Sodium Chloride 1,000 ML IVC ONE (05:44)
[2022-04-11] MEDS ORDERED: Piperacillin/Tazobactam 3.375 GM in 0.9 % Sodium Chloride Mini Bag 100 ML IVPB ONE (06:00)
[2022-04-11] MEDS ORDERED: Vancomycin 2,000 MG/520 ML IV.SOLN IVPB ONE (07:00)
[2022-04-11 07:12] LABS: Basophils # 0.1 K/mcL (0.0-0.2); Eosinophils # 0.4 K/mcL (0.0-0.6); Eosinophils % 4.9 %; Hemoglobin 15.7 g/dL (12.9-16.9); Immature Granulocytes % 0.8 % (0-4); Lymphocytes # 1.7 K/mcL (0.6-4.6); Lymphocytes % 21.8 %; Mean Corpuscular HGB Conc 34.9 g/dL (31.6-35.5); Mean Corpuscular Hemoglobin 32.2 pg (28.0-33.3); Mean Corpuscular Volume 92.2 fL (83.0-100.0); Mean Platelet Volume 9.4 fL (9.4-12.4); Monocytes # 1.1 K/mcL (0.0-1.3); Monocytes % 13.3 %; Neutrophils # 4.6 K/mcL (1.6-8.9); Platelet Count 204 K/mcL (140-400); Red Blood Count 4.88 M/mcL (4.19-5.50); Red Cell Distribution Width 13.7 % (11.5-14.5); Segmented Neutrophils % 58.2 %; White Blood Count 7.9 K/mcL (4.3-11.1)
[2022-04-11 07:27] LABS: Albumin 4.2 g/dL (3.5-5.7); Albumin/Globulin Ratio 1.4 (1.1-2.2); Bilirubin,Direct 0.2 mg/dL (0.0-0.2); Bilirubin,Indirect 0.9 mg/dL (0.0-1.0); Bilirubin,Total 1.1 mg/dL (0.3-1.0); Calcium 9.2 mg/dL (8.6-10.3); Potassium 3.7 mEq/L (3.5-5.1); Total Protein 7.2 g/dL (6.4-8.9)
[2022-04-11] MEDS ORDERED: Lidocaine -MPF 1% 2 ML VIAL ID ONE (08:12)
[2022-04-11] MEDS ORDERED: Albuterol 2.5 MG/3 ML NEBULIZER IH PRN (09:19)
[2022-04-11] MEDS ORDERED: Naloxone 0.4 MG/ML INJ IVP PRN (09:20)
[2022-04-11] MEDS ORDERED: Ondansetron 4 MG/2 ML VIAL IVP PRN (09:20)
[2022-04-11] MEDS ORDERED: Melatonin 3 MG TABLET PO PRN (09:20)
[2022-04-11] MEDS ORDERED: Morphine Sulfate 2 MG/ML SYRINGE IVP STA (09:27)
[2022-04-11] MEDS: Budesonide/Formoterol 80/4.5 1 PUFF INH IH SCH ×2 (09:56→20:17)
[2022-04-11] MEDS ORDERED: Vancomycin 1,750 MG in 0.9 % Sodium Chloride 250 ML IVPB SCH (10:00)
[2022-04-11] MEDS: Acetaminophen 325 MG TABLET PO PRN (12:17)
[2022-04-11] MEDS: Cefepime HCl 2,000 MG in 0.9 % Sodium Chloride 10 ML IVP SCH (16:44)
[2022-04-12 03:46] LABS: BUN/Creatinine Ratio 18 (6-26); Blood Urea Nitrogen 24 mg/dL (8-23); Calcium 8.3 mg/dL (8.6-10.3); Carbon Dioxide 18 mEq/L (23-29); Chloride 105 mEq/L (98-107); Glucose 119 mg/dL (70-105); Magnesium 2.6 mg/dL (1.6-2.6); Osmolality,Calculated 283 (280-300); Potassium 4.2 mEq/L (3.5-5.1); Sodium 134 mEq/L (136-145); eGFR For African Americans > 60 (> 60); eGFR For Non-African Americans 50 (> 60)
[2022-04-12] MEDS: Cefepime HCl 2,000 MG in 0.9 % Sodium Chloride 10 ML IVP SCH ×2 (03:55→16:02)
[2022-04-12] MEDS ORDERED: Vancomycin 1,500 MG/265 ML IV.SOLN IVPB SCH (07:00)
[2022-04-12] MEDS: Budesonide/Formoterol 80/4.5 1 PUFF INH IH SCH ×2 (07:46→20:27)
[2022-04-12] MEDS ORDERED: *HR* Propofol 200 MG/20 ML VIAL IVP ONE (10:30)
[2022-04-12] MEDS ORDERED: *HR* FentaNYL (PF) 100 MCG/2 ML VIAL ONE (10:30)
[2022-04-12] MEDS ORDERED: Lidocaine HCL 4 ML Topical Solution (Laryng-O-Jet Kit Sterile Pak) TP ONE (10:31)
[2022-04-12] MEDS ORDERED: Ondansetron 4 MG/2 ML VIAL ONE (10:31)
[2022-04-12] MEDS ORDERED: Lidocaine -MPF 2% 2 ML VIAL ONE (10:31)
[2022-04-12] MEDS ORDERED: *HR* Rocuronium Bromide 50 MG/5 ML VIAL ONE (10:31)
[2022-04-12 11:37] LABS: Hematocrit 41.6 % (37.5-50.1); Hemoglobin 14.4 g/dL (12.9-16.9)
[2022-04-12] MEDS ORDERED: D5% in Water 1,000 ML IVC PRN (14:00)
[2022-04-12] MEDS ORDERED: *HR* Dextrose 50 % in Water (Syg) 50 ML SYRINGE IVP PRN (14:00)
[2022-04-12] MEDS ORDERED: Dextrose Gel 15 GM/37.5 ML TUBE PO PRN ×2 (14:00)
[2022-04-12] MEDS: *HR* Rivaroxaban 10 MG TABLET PO SCH (16:02)
[2022-04-12] MEDS: Acetaminophen 325 MG TABLET PO PRN ×2 (16:09→22:10)
[2022-04-12] MEDS: Insulin LISPRO 300 UNITS/3 ML VIAL SUBQ SCH ×2 (16:45→21:10)
[2022-04-12] MEDS ORDERED: *HR* Rivaroxaban 10 MG TABLET PO SCH (17:00)
[2022-04-13] MEDS: Cefepime HCl 2,000 MG in 0.9 % Sodium Chloride 10 ML IVP SCH ×2 (04:01→17:28)
[2022-04-13 06:23] LABS: Hemoglobin 13.8 g/dL (12.9-16.9)
[2022-04-13 06:45] LABS: BUN/Creatinine Ratio 17 (6-26); Blood Urea Nitrogen 23 mg/dL (8-23); Calcium 8.6 mg/dL (8.6-10.3); Carbon Dioxide 27 mEq/L (23-29); Chloride 105 mEq/L (98-107); Glucose 132 mg/dL (70-105); Osmolality,Calculated 290 (280-300); Potassium 3.8 mEq/L (3.5-5.1); Sodium 137 mEq/L (136-145); eGFR For African Americans > 60 (> 60); eGFR For Non-African Americans 51 (> 60)
[2022-04-13 07:07] LABS: Estimated Average Glucose 157 mg/dl; Hemoglobin A1C 7.1 %
[2022-04-13] MEDS: Vancomycin 1,750 MG/517.5 ML IV.SOLN IVPB SCH (07:44)
[2022-04-13] MEDS: Insulin LISPRO 300 UNITS/3 ML VIAL SUBQ SCH ×4 (07:46→20:27)
[2022-04-13] MEDS: Budesonide/Formoterol 80/4.5 1 PUFF INH IH SCH ×2 (07:54→23:51)
[2022-04-13] MEDS: Acetaminophen 325 MG TABLET PO PRN (12:18)
[2022-04-13] MEDS: *HR* Rivaroxaban 10 MG TABLET PO SCH (17:29)
[2022-04-14 03:56] LABS: Hematocrit 39.7 % (37.5-50.1); Hemoglobin 13.5 g/dL (12.9-16.9)
[2022-04-14] MEDS: Cefepime HCl 2,000 MG in 0.9 % Sodium Chloride 10 ML IVP SCH ×2 (04:10→17:08)
[2022-04-14 04:11] LABS: BUN/Creatinine Ratio 17 (6-26); Blood Urea Nitrogen 21 mg/dL (8-23); Calcium 8.6 mg/dL (8.6-10.3); Carbon Dioxide 24 mEq/L (23-29); Chloride 106 mEq/L (98-107); Glucose 115 mg/dL (70-105); Osmolality,Calculated 288 (280-300); Potassium 3.8 mEq/L (3.5-5.1); Sodium 137 mEq/L (136-145); eGFR For African Americans > 60 (> 60); eGFR For Non-African Americans 55 (> 60)
[2022-04-14] MEDS: Vancomycin 1,750 MG/517.5 ML IV.SOLN IVPB SCH (06:26)
[2022-04-14] MEDS: Budesonide/Formoterol 80/4.5 1 PUFF INH IH SCH ×2 (07:36→20:16)
[2022-04-14] MEDS: Insulin LISPRO 300 UNITS/3 ML VIAL SUBQ SCH ×4 (08:49→20:42)
[2022-04-14] MEDS: *HR* Rivaroxaban 10 MG TABLET PO SCH (17:07)
[2022-04-15] MEDS: Cefepime HCl 2,000 MG in 0.9 % Sodium Chloride 10 ML IVP SCH ×2 (04:36→17:53)
[2022-04-15] MEDS: Vancomycin 1,750 MG/517.5 ML IV.SOLN IVPB SCH (07:02)
[2022-04-15] MEDS: Budesonide/Formoterol 80/4.5 1 PUFF INH IH SCH ×2 (07:57→20:10)
[2022-04-15] MEDS: Insulin LISPRO 300 UNITS/3 ML VIAL SUBQ SCH ×4 (08:46→20:18)
[2022-04-15] MEDS: Acetaminophen 325 MG TABLET PO PRN ×2 (08:52→20:26)
[2022-04-15 10:31] LABS: Basophils # 0.1 K/mcL (0.0-0.2); Basophils % 0.7 %; Eosinophils # 0.3 K/mcL (0.0-0.6); Eosinophils % 4.5 %; Hematocrit 43.1 % (37.5-50.1); Hemoglobin 14.2 g/dL (12.9-16.9); Immature Granulocytes % 0.7 % (0-4); Lymphocytes # 1.1 K/mcL (0.6-4.6); Lymphocytes % 14.8 %; Mean Corpuscular HGB Conc 32.9 g/dL (31.6-35.5); Mean Corpuscular Hemoglobin 31.5 pg (28.0-33.3); Mean Corpuscular Volume 95.6 fL (83.0-100.0); Mean Platelet Volume 9.2 fL (9.4-12.4); Monocytes # 0.8 K/mcL (0.0-1.3); Monocytes % 10.7 %; Platelet Count 187 K/mcL (140-400); Red Blood Count 4.51 M/mcL (4.19-5.50); Red Cell Distribution Width 13.4 % (11.5-14.5); Segmented Neutrophils % 68.6 %; White Blood Count 7.3 K/mcL (4.3-11.1)
[2022-04-15] MEDS: *HR* Rivaroxaban 10 MG TABLET PO SCH (17:53)
[2022-04-15] MEDS: methocarbamoL 500 MG TABLET PO PRN (20:26)
[2022-04-16 01:41] LABS: Hematocrit 39.7 % (37.5-50.1); Hemoglobin 13.8 g/dL (12.9-16.9)
[2022-04-16 02:04] LABS: Calcium 8.7 mg/dL (8.6-10.3); Potassium 3.8 mEq/L (3.5-5.1)
[2022-04-16] MEDS: Cefepime HCl 2,000 MG in 0.9 % Sodium Chloride 10 ML IVP SCH (04:40)
[2022-04-16] MEDS: Budesonide/Formoterol 80/4.5 1 PUFF INH IH SCH (07:34)
[2022-04-16] MEDS: Insulin LISPRO 300 UNITS/3 ML VIAL SUBQ SCH ×2 (08:33→12:13)
[2022-04-16] MEDS: Vancomycin 1,750 MG/517.5 ML IV.SOLN IVPB SCH (08:46)
[2022-04-16] MEDS: Acetaminophen 325 MG TABLET PO PRN (09:06)
[2022-04-16] MEDS: methocarbamoL 500 MG TABLET PO PRN (09:06)
[2022-04-16 10:07] VITALS: BP 118/72; PULSE 80; TEMP 97.3; O2SAT 96
== END 2022-04-16 12:25 | disposition home or self-care (01) | DRG 605 ==
LOC: SUATTDRO → EMEROOARM 05:30 → 3ANU 05:30 → SUATTDRO 09:25 → 3ANU 10:07
PROVIDERS: ADMIT Internal Medicine; ATTEND Registered Nurse